=== PATIENT | female | born 1970 | race Caucasian/White ===

== ENCOUNTER 2016-06-17 14:24 | Emergency (ER) | payer MEDICAID ==
[~2016-06-17] VITALS: Ht 165.1 cm; Wt 81.6 kg
[~2016-06-17 14:24] MED LIST: CIMETIDINE200 MG PO; CYCLOBENZAPRINE10 MG PO; DRAMAMINE50 MG PO; DULOXETINE60 MG PO; ENBREL25 MG/0.5 SQ; ESCITALOPRAM20 MG NG; ESTRACE 2MG. TAB2 MG PO; FOLIC ACID 1MG T1 MG PO; HYDROCHLOROTHIA25 M1 PO; ISOPTIN PO; KEFLEX750 M1 PO; MAXZIDE 25 MG-31 TAB PO; MECLIZINE25 MG PO; NAPROXEN SODIU500 MG PO; PHENAZOPYRIDIN200 MG PO; SULFAMETH/TRIME1 TAB PO; WARFARIN SOD5 M1 PO
[2016-06-17] MEDS ORDERED: MEDROL 4MG. DOSE4 MG PO (15:39)
[2016-06-17] MEDS ORDERED: LEVAQUIN 750 M750 MG PO (15:39)
[2016-06-17] MEDS ORDERED: PROVENTIL0.09 MG/A1 IH (15:39)
[2016-06-17 15:43] VITALS: BP 131/82
--- NOTE | 2016-06-17 15:43 | Urgent Treatment Center Report ---
History of Present Issue Date/Time Seen by Provider 06/17/16 6075 Visit Reason Pt arrived:Walked Presenting Problem:PT C/O COUGH AND FEVER. PT ADVISES THAT WHEN SHE FIRST BECOME SICK, SHE HAD A SORE THROAT, BUT NOW IT IS NO LONGER SORE Location if Accident: Onset of symptoms date/time:/ or onset unknown for:MEDICAL HX UNKNOWN Have you (or family members/close friends) recently traveled outside the [place]? N If Yes, where/when: Have you had exposure to infectious disease within the past month? TB? Other? Specify: c/o continued cough and fever x 3-4 weeks "and I need a shot of whatever you can give me. I have surgery Friday for my appendix and this needs to be resolved". Cough persistant and fever intermittent. Occasional SOA, no wheezing. No improvement with zpack. Fever mostly at night, subjective. OTC cough medications not helping. 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 Source patient Exam Limitations no limitations ALLERGIES Coded Allergies: latex (Intermediate, I-RASH 02/05/16) fentanyl (03/18/15) lisinopril (03/18/15) ofloxacin (From FLOXIN) (03/18/15) Home Medications Reported Medications Verapamil Hcl (Isoptin SR) 120 MG PO BID Escitalopram Oxalate 20 MG NG DAILY #30 HYDROCHLOROTHIAZIDE (Hydrochlorothiazide) 25 MG PO DAILY #30 Warfarin Sodium 5 MG PO DAILY #30 TAB Cimetidine 200 MG PO DAILY Cyclobenzaprine Hcl (Cyclobenzaprine 10MG) 10 MG PO DAILY Etanercept (Enbrel) 25 MG SQ WEEKLY History Medical History General CAD? No Angina: No CT: No Hypertension? Yes Hyperlipidemia? No CHF? No DVT? Yes PE? No COPD? No Asthma? No Anemia? No GERD? No Gastric ulcers? No GI Bleed? No Hernia? No Thyroid Problems? No Hypothyroidism? No CVA? No Seizures? No Diabetes? No Insulin Dependent: No Insulin Pump: No Home FSBS? No Renal Insuffiency? No UTI? No Stones? Yes BPH? No GB Disease: Yes Nephritic Syndrome? No Asplenia? No Hepatitis? No Sickle Cell Disease? No Arthritis? No Migraines? Yes Cataracts? No Glaucoma? No MRSA? No HIV? No TB? No Anxiety? Yes Depression? Yes Cancer? No More? 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 denies: ear pain, ear discharge, nose discharge, nose congestion. Respiratory see HPI Cardiovascular denies chest pain, denies palpitations Gastrointestinal denies no symptoms reported Physical Exam Vital Signs Vital Signs Date Time Temp Pulse Resp B/P Pulse O2 O2 Flow FiO2 Ox Delivery Rate 06/17 1543 97.6 75 16 131/82 95 06/17 1430 97.6 75 16 131/82 95 General Appearance normal appearance, no apparent distress Eye Exam - bilateral eye normal exam Ear, Nose, Throat normal ENT inspection Neck non-tender, supple Respiratory Status Yes: chest symmetrical, non productive cough (worse w/ talking, deep breaths). No: respiratory distress, use of accessory muscles, pain on inspiration, pain on expiration. Lung Sounds anterior: lungs clear. posterior: lungs clear. bilateral: lungs clear. Cardiovascular regular rate/rhythm, no murmur Neurologic alert Skin normal color, warm/dry Lymphatic no adenopathy (cervical) Medical Decision Making LABS/Meds/Orders Pt receiving controlled substance in ED? No Departure Departure Time of Disposition 1532 Disposition DC Home or Self Care(routine) Clinical Impression Primary Impression: Acute bronchitis Qualifiers: Bronchitis organism: unspecified organism Qualified Code: J20.9 - Acute bronchitis, unspecified Condition STABLE Referrals MAICOL RAUSCH (Family) Follow up immediately for new or worsening symptoms OR no noticeable improvement over the next 48-72 hours for your best chance of improvement prior to surgery. Patient Instructions Albuterol Oral Inhalation, DI for Acute Bronchitis, Levofloxacin, Methylprednisolone Oral Additional Instructions Discussed antibiotics. No obvious sign of infection. I understand you would prefer to have an antibiotic because you know your body and I will give you one only for that reason. remember that as we discussed, antibiotics do come with side effects (especially this particular one) and risk including allergic reactions and resistance. Resistance to antibiotics can cause serious complications in the future if there is no antibiotic to treat an infection you have. Carefully consider this before starting antibiotics. Also, this particular antibiotic can effect your coumadin level. I understand you already took zpack and do not want to take that again. BE SURE to call your PCP and notify them that you have start levaquin so that your coumadin can be monitored and/or adjusted appropriately Inhaler as needed like we discussed. If still unsure, ask pharmacist to show you how to use it. Should open airways and improve cough, wheezing, shortness of breath. Mucinex during the day for your cough. Be sure to drink lots of water. If insurance does cover it, cheaper to get 400mg tablets and take 2 tablets morning , midday and evening all with lots of water. Start steroid today. Helps with inflammation therefore, cough and wheezing and possibly sore throat. Follow directions on package. Rvwd side effects. Pt reports he has taken them before. VERY IMPORTANT that you tell them on Friday that you have been on steroids. You might even call them today. This could change rather or not you can have surgery/anesthesia. Discharge Counseling Counseled pt/family regarding diagnosis, medications/RX, home care, follow up needs Prescriptions Current Visit Scripts ALBUTEROL (Proventil Hfa Inhaler) 1-2 PUFF IH Q4-6H PRN PRN shortness of breath, wheezing #1 CAN Levofloxacin (Levaquin 750mg) 750 MG PO DAILY #5 TAB Methylprednisolone (Medrol Dose Sohail) 4 MG PO UD #1 SOHAIL TAKE DIRECTED ON PACKAGING at 0579
[2016-06-26] MEDS ORDERED: LIPITOR40 M1 PO (20:15)
[2016-06-26] MEDS ORDERED: LEXAPRO 20 MG T20 MG PO (20:19)
[2016-06-26] MEDS ORDERED: DYAZIDE1 CAP PO (20:19)
[2016-06-26] MEDS ORDERED: ELIQUIS5 MG PO (20:20)
[2016-06-26] MEDS ORDERED: HYDROCHLOROTHIA25 M1 PO (20:20)
[2016-06-26] MEDS ORDERED: POTASSIUM CHLO20 ME2 PO (20:22)
[2016-06-26] MEDS ORDERED: NORCO 325 MG-51 TAB PO (20:22)
== END 2016-06-17 15:44 | disposition home or self-care (01) ==
LOC: UTC 14:24
DX: J20.9 Acute bronchitis, unspecified (principal)

== ENCOUNTER 2016-11-22 17:15 | Emergency (ER) | payer MEDICAID ==
[~2016-11-22] VITALS: Ht 165.1 cm; Wt 84.9 kg
[~2016-11-22 17:15] MED LIST changes: +DYAZIDE1 CAP PO; +ELIQUIS5 MG PO; +LEVAQUIN 750 M750 MG PO; +LEXAPRO 20 MG T20 MG PO; +LIPITOR40 M1 PO; +MEDROL 4MG. DOSE4 MG PO; +NORCO 325 MG-51 TAB PO; +POTASSIUM CHLO20 ME2 PO; +PROVENTIL0.09 MG/A1 IH
[2016-11-22 17:40] LABS: URINE BILIRUBIN - DIPSTICK NEGATIVE (NEG); URINE BLOOD NEGATIVE (NEG)
[2016-11-22] MEDS ORDERED: FLEXERIL10 MG PO (17:47)
--- NOTE | 2016-11-22 17:48 | Urgent Treatment Center Report ---
History of Present Issue Date/Time Seen by Provider 11/22/16 7767 Visit Reason Pt arrived:Walked Presenting Problem:PT C/O OF BURNING WHEN URINATING AND POS UTI Location if Accident: Onset of symptoms date/time:11/21/16 or onset unknown for: Have you (or family members/close friends) recently traveled outside the [place]? N If Yes, where/when: Have you had exposure to infectious disease within the past month? TB? Other? Specify: Patient states that she thinks she may have a UTI because she has been having some burning with urination. States that she has also been having low back pain and that she has been taking care of grandchildren all weekend so not sure if she has a UTI or just pulled a muscle in her back lifting the children States that it has continued to get worse so she thought she may need to come get checked before it got really bad ALLERGIES Coded Allergies: latex (Intermediate, I-RASH 02/05/16) morphine (Intermediate, 06/26/16) ciprofloxacin (From CIPRO) (Mild, 06/26/16) fentanyl (03/18/15) lisinopril (03/18/15) ofloxacin (From FLOXIN) (03/18/15) Home Medications Reported Medications Verapamil Hcl (Isoptin SR) 120 MG PO BID Atorvastatin Calcium (Lipitor 40MG) 40 MG PO DAILY TRIAMTERENE/HYDROCHLOROTHIAZID (Dyazide 37.5-25 Capsule) 1 CAP PO DAILY Escitalopram Oxalate (Lexapro 20MG) 20 MG PO DAILY HYDROCHLOROTHIAZIDE (Hydrochlorothiazide) 25 MG PO DAILY Apixaban (Eliquis) 5 MG PO BID HYDROCODONE/ACETAMINOPHEN ([place] 5-325 Tablet) 1 TAB PO Q4HP PRN SURGERY PAIN POTASSIUM CHL (Potassium Chloride) 20 MEQ PO BID History Medical History General CAD? No Angina: No [place]: No Hypertension? Yes Hyperlipidemia? No CHF? No DVT? Yes PE? No COPD? No Asthma? No Anemia? No GERD? No Gastric ulcers? No GI Bleed? No Hernia? No Thyroid Problems? No Hypothyroidism? No CVA? No Seizures? No Diabetes? No Insulin Dependent: No Insulin Pump: No Home FSBS? No Renal Insuffiency? No UTI? No Stones? Yes BPH? No GB Disease: Yes Nephritic Syndrome? No Asplenia? No Hepatitis? No Sickle Cell Disease? No Arthritis? No Migraines? Yes Cataracts? No Glaucoma? No MRSA? No HIV? No TB? No Anxiety? Yes Depression? Yes Cancer? No More? 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 Musculoskeletal back pain Physical Exam Vital Signs Vital Signs Date Time Temp Pulse Resp B/P Pulse O2 O2 Flow FiO2 Ox Delivery Rate 11/22 1729 97.9 71 18 160/89 100 General Appearance normal appearance, WD/WN, no apparent distress Respiratory Status Yes: trachea midline, chest symmetrical, non tender chest. No: respiratory distress. Lung Sounds bilateral: normal breath sounds, lungs clear. 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 No Results/Orders Laboratory Tests 11/22/161739: Urine Color YELLOW, Urine Appearance CLEAR, Urine pH 7.0, Ur Specific [place] 1.015, Urine Protein NEGATIVE, Urine Ketones NEGATIVE, Urine Blood NEGATIVE, Urine Nitrate NEGATIVE, Urine Bilirubin NEGATIVE, Urine Urobilinogen 0.2, Ur Leukocyte Esterase NEGATIVE, Urine Glucose NEGATIVE Orders Procedure Date/time Status [facility] URINE DIPSTICK 11/23 1739 Complete Departure Departure Time of Disposition 1743 Disposition DC Home or Self Care(routine) Clinical Impression Primary Impression: Muscle spasm Condition STABLE Patient Instructions DI for Muscle Spasm Additional Instructions Warm bath with epson salt will help with tired and achy muscles No heavy lifting Follow up with family doctor if symptoms does not improve Take medication as prescribed Take previously prescribed medication for pain Discharge Counseling Counseled pt/family regarding diagnosis, test results, medications/RX, home care Prescriptions Current Visit Scripts Cyclobenzaprine Hcl (Flexeril) 10 MG PO TID #15 TAB at 1748
--- NOTE | 2016-11-22 17:48 | Urgent Treatment Center Report ---
History of Present Issue Date/Time Seen by Provider 11/22/16 3857 Visit Reason Pt arrived:Walked Presenting Problem:PT C/O OF BURNING WHEN URINATING AND POS UTI Location if Accident: Onset of symptoms date/time:11/21/16 or onset unknown for: Have you (or family members/close friends) recently traveled outside the [place]? N If Yes, where/when: Have you had exposure to infectious disease within the past month? TB? Other? Specify: Patient states that she thinks she may have a UTI because she has been having some burning with urination. States that she has also been having low back pain and that she has been taking care of grandchildren all weekend so not sure if she has a UTI or just pulled a muscle in her back lifting the children States that it has continued to get worse so she thought she may need to come get checked before it got really bad ALLERGIES Coded Allergies: latex (Intermediate, I-RASH 02/05/16) morphine (Intermediate, 06/26/16) ciprofloxacin (From CIPRO) (Mild, 06/26/16) fentanyl (03/18/15) lisinopril (03/18/15) ofloxacin (From FLOXIN) (03/18/15) Home Medications Reported Medications Verapamil Hcl (Isoptin SR) 120 MG PO BID Atorvastatin Calcium (Lipitor 40MG) 40 MG PO DAILY TRIAMTERENE/HYDROCHLOROTHIAZID (Dyazide 37.5-25 Capsule) 1 CAP PO DAILY Escitalopram Oxalate (Lexapro 20MG) 20 MG PO DAILY HYDROCHLOROTHIAZIDE (Hydrochlorothiazide) 25 MG PO DAILY Apixaban (Eliquis) 5 MG PO BID HYDROCODONE/ACETAMINOPHEN ([place] 5-325 Tablet) 1 TAB PO Q4HP PRN SURGERY PAIN POTASSIUM CHL (Potassium Chloride) 20 MEQ PO BID History Medical History General CAD? No Angina: No [place]: No Hypertension? Yes Hyperlipidemia? No CHF? No DVT? Yes PE? No COPD? No Asthma? No Anemia? No GERD? No Gastric ulcers? No GI Bleed? No Hernia? No Thyroid Problems? No Hypothyroidism? No CVA? No Seizures? No Diabetes? No Insulin Dependent: No Insulin Pump: No Home FSBS? No Renal Insuffiency? No UTI? No Stones? Yes BPH? No GB Disease: Yes Nephritic Syndrome? No Asplenia? No Hepatitis? No Sickle Cell Disease? No Arthritis? No Migraines? Yes Cataracts? No Glaucoma? No MRSA? No HIV? No TB? No Anxiety? Yes Depression? Yes Cancer? No More? 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 Musculoskeletal back pain Physical Exam Vital Signs Vital Signs Date Time Temp Pulse Resp B/P Pulse O2 O2 Flow FiO2 Ox Delivery Rate 11/22 1729 97.9 71 18 160/89 100 General Appearance normal appearance, WD/WN, no apparent distress Respiratory Status Yes: trachea midline, chest symmetrical, non tender chest. No: respiratory distress. Lung Sounds bilateral: normal breath sounds, lungs clear. 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 No Results/Orders Laboratory Tests 11/22/161739: Urine Color YELLOW, Urine Appearance CLEAR, Urine pH 7.0, Ur Specific [place] 1.015, Urine Protein NEGATIVE, Urine Ketones NEGATIVE, Urine Blood NEGATIVE, Urine Nitrate NEGATIVE, Urine Bilirubin NEGATIVE, Urine Urobilinogen 0.2, Ur Leukocyte Esterase NEGATIVE, Urine Glucose NEGATIVE Orders Procedure Date/time Status [facility] URINE DIPSTICK 11/23 1739 Complete Departure Departure Time of Disposition 1743 Disposition DC Home or Self Care(routine) Clinical Impression Primary Impression: Muscle spasm Condition STABLE Patient Instructions DI for Muscle Spasm Additional Instructions Warm bath with epson salt will help with tired and achy muscles No heavy lifting Follow up with family doctor if symptoms does not improve Take medication as prescribed Take previously prescribed medication for pain Discharge Counseling Counseled pt/family regarding diagnosis, test results, medications/RX, home care Prescriptions Current Visit Scripts Cyclobenzaprine Hcl (Flexeril) 10 MG PO TID #15 TAB at 1744
[2016-11-22 17:52] VITALS: BP 160/89
== END 2016-11-22 17:52 | disposition home or self-care (01) ==
LOC: UTC 17:15
PROVIDERS: Nurse Practitioner
DX: M62.830 Muscle spasm of back (principal); I10 Essential (primary) hypertension; F41.8 Other specified anxiety disorders; Z72.0 Tobacco use; Z79.899 Other long term (current) drug therapy

== ENCOUNTER → 2016-12-04 | Outpatient (CLI) | payer MEDICAID ==
[~2016-12-04] MED LIST changes: +FLEXERIL10 MG PO
== END ==
LOC: LAB 15:01
DX: E87.6 Hypokalemia (principal)

== ENCOUNTER 2016-12-24 11:06 | Emergency (ER) | payer MEDICAID ==
[~2016-12-24] VITALS: Ht 165.1 cm; Wt 84.8 kg
[2016-12-24] MEDS ORDERED: QUETIAPINE FUM200 MG PO (11:15)
[2016-12-24] MEDS ORDERED: BRINTELLIX20 MG PO (11:16)
--- NOTE | 2016-12-24 12:00 | Emergency Room Report ---
History of Present Illness Time Seen by 1111 Presenting Problem in Triage Pt arrived:Walked Presenting Problem:PT REPORTS PAIN IN R ANTERIOR LUNG AREA THAT BEGAN YESTERDAY. PT REPORTS HAVING A COUGH X4 WEEKS THAT IS DEEP AND PRODUCTIVE. PT REPROTS PAIN IS SHARP IN NATURE AND PAINFUL WITH INSPIRATION. 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 N Clinical Suspician of Infection? N Mental Status: 1 - Regular (Normal Baseline) Sepsis Risk:Low Sepsis Risk Have you (or family members/close friends) recently traveled outside the [place]? N If Yes, where/when: Have you had exposure to infectious disease within the past month? N TB? Other? Specify: Comment The patient complains of "air" in the area of her RIGHT costal margin. She describes this as a pain that has been present there since yesterday afternoon. It hurts with breathing and cough. She feels short of air. It reminds her of when she has had previous abdominal surgery where they fill your abdomen with air. She also has a prior history of pulmonary embolism and DVT and says this feels like prior PE. She is on Eliquis. She does not have any new leg swelling and does not have any calf pain. She has had a deep cough for 4 weeks. Her sputum is brown. ALLERGIES Coded Allergies: latex (Intermediate, I-RASH 02/05/16) morphine (Intermediate, 06/26/16) ciprofloxacin (From CIPRO) (Mild, 06/26/16) fentanyl (03/18/15) lisinopril (03/18/15) ofloxacin (From FLOXIN) (03/18/15) Home Medications Reported Medications Verapamil Hcl (Isoptin SR) 120 MG PO BID Atorvastatin Calcium (Lipitor 40MG) 40 MG PO DAILY TRIAMTERENE/HYDROCHLOROTHIAZID (Dyazide 37.5-25 Capsule) 1 CAP PO DAILY HYDROCHLOROTHIAZIDE (Hydrochlorothiazide) 25 MG PO DAILY Apixaban (Eliquis) 5 MG PO BID POTASSIUM CHL (Potassium Chloride) 20 MEQ PO BID Quetiapine Fumarate (Quetiapine 200MG) 200 MG PO QHS #30 Vortioxetine Hydrobromide (Brintellix) 20 MG PO DAILY #30 History Medical History General CAD? No Angina: No [place]: No Hypertension? Yes Hyperlipidemia? No CHF? No DVT? Yes PE? No COPD? No Asthma? No Anemia? No GERD? No Gastric ulcers? No GI Bleed? No Hernia? No Thyroid Problems? No Hypothyroidism? No CVA? No Seizures? No Diabetes? No Insulin Dependent: No Insulin Pump: No Home FSBS? No Renal Insuffiency? No End Stage Renal Disease? No UTI? No Stones? Yes BPH? No GB Disease: Yes Nephritic Syndrome? No Asplenia? No Hepatitis? No Sickle Cell Disease? No Arthritis? No Migraines? Yes Cataracts? No Glaucoma? No MRSA? No HIV? No TB? No Anxiety? Yes Depression? Yes Cancer? No More? 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 N/A Social History Smoking Hx Smoker: Never Smoker Tobacco: No Alcohol Alcohol: No Review of Systems All Other Systems Reviewed and Negative Constitutional denies fever Respiratory cough, shortness of breath Cardiovascular chest pain Gastrointestinal denies abdominal pain, denies nausea, denies vomiting Physical Exam Vital Signs Vital Signs Date Time Temp Pulse Resp B/P Pulse O2 O2 Flow FiO2 Ox Delivery Rate 12/24 1546 65 132/79 98 12/24 1446 67 16 140/92 100 12/24 1247 16 12/24 1235 69 18 149/73 99 12/24 1110 98.1 81 22 141/88 99 General Appearance no apparent distress Eye Exam - bilateral eye normal exam, bilateral eye PERRL, bilateral eye EOMI Ear, Nose, Throat hearing grossly normal, normal ENT inspection Neck normal inspection, non-tender, supple, full range of motion Respiratory Status Yes: trachea midline, chest symmetrical, non tender chest. No: respiratory distress. Lung Sounds bilateral: normal breath sounds, lungs clear. 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 Yes Davi was queried for this patient? Yes Comment [id number] rxs. last rx gabapentin 12/11/16. Results/Orders Laboratory Tests 12/24/16 1226: Creatine Kinase 69, CK-MB (CK-2) Rel Index 0.7, CK and CKMB Interp < 0.5, Troponin I < 0.02, Amylase 75, Lipase 277 12/24/16 1226: Sodium 141, Potassium 3.2 L, Chloride 104, Carbon Dioxide 26, BUN 20 H, Creatinine 1.1 H, Estimated Creat Clear 84, Estimated GFR (MDRD) 53 L, Glucose 90, Calcium 9.8, Total Bilirubin 1.1 H, AST 31, ALT 54, Alkaline Phosphatase 170 H, Total Protein 8.6 H, Albumin 4.3, Globulin 4.3 H, Albumin/Globulin Ratio 1.0 L, WBC 7.3, RBC 4.52, Hgb 13.4, Hct 40.0, MCV 88.6, RDW 14.1, Plt Count 183, Gran % 62.5, Gran # 4.6, Lymphocytes % 30.2, Monocytes % 7.3, Lymphocytes # 2.2, Monocytes # 0.5, PUBS MCHC 33.5, MCH 29.6 Current Medication Orders Sig/Caio Start time Last Medication Dose Route Stop Time Status Admin Hydrocodone Bitart/ 1 TAB ONCE 12/24 1545 DCr Acetaminophen PO 12/24 1546 Hydrocodone Bitart/ 0 .STK-MED ONE 12/24 1542 DCr Acetaminophen PO Hydromorphone HCl 0.5 MG ONCE ONE 12/24 1515 CANr IV 12/24 1516 Hydromorphone HCl 0 .STK-MED ONE 12/24 124 DCr .ROUTE Ondansetron HCl 0 .STK-MED ONE 12/24 1245 DC .ROUTE Hydromorphone HCl 0.5 MG ONCE ONE 12/24 1215 DCr 12/24 IV 12/246 1247 Ondansetron HCl 4 MG ONCE ONE 12/24 1215 DC 12/24 IV 12/246 1246 Sodium Chloride 10 ML PRN PRN 12/24 1215 DCD IV 12/25 1211 Orders Procedure Date/time Status DIET-NOTHING BY MOUTH 12/24 D Active ELECTROCARDIOGRAM REQUEST 12/24 1337 Active LIPASE 12/24 1337 Complete CARDIAC ENZYMES 12/24 1337 Complete AMYLASE 12/[address] CHEST W/PE PROTOCOL REQ 12/24 1213 Active IV SALINE LOCK 12/24 1213 Active CBC WITH AUTO DIFF 12/24 1213 Complete CHEM 12 PROFILE 12/24 1213 Complete 12 LEAD EKG-MARA (INITIAL) 12/24 UNK Active CM/EKG CM/EKG Comments EKG interpreted by Thiago Sherman MD: Rhythm: sinus bradycardia Rate: 56 [place]: normal Ectopy: none Conduction: normal ST Segment Changes: none T Wave Changes: none Q Waves: none No evidence of acute ischemia or injury Poor R-wave progression Prior electrocardiagrams reviewed. No change from prior tracings. Progress - 3:08 PM: The patient requests "another shot of that pain medication and he gave me before". States she started coughing and the pain has come back with a vengeance. Departure Departure Disposition DC Home or Self Care(routine) Clinical Impression Primary Impression: Pleurisy Secondary Impressions: Acute bronchitis Qualifiers: Bronchitis organism: unspecified organism Qualified Code: J20.9 - Acute bronchitis, unspecified Condition STABLE Referrals MAICOL RAUSCH (Family) Patient Instructions DI for Acute Bronchitis, DI for Pleurisy Prescriptions Current Visit Scripts Azithromycin (Zithromycin (Z-CÉSAR) 250MG Tab) 250 MG PO DAILY #6 TAB TAKE TWO (2) TABLETS ON DAY 1, THEN ONE (1) TABLET DAY #2 THRU #5 Benzonatate (Tessalon Perle) 100 MG PO TID #15 SGL HYDROCODONE/ACETAMINOPHEN ([place] 5-325 Tablet) 1 TAB PO Q6HP PRN pain #10 TAB ED Critical Care Critical Care No at 1651
--- NOTE | 2016-12-24 12:00 | Emergency Room Report ---
History of Present Illness Time Seen by [id number] Presenting Problem in Triage Pt arrived:Walked Presenting Problem:PT REPORTS PAIN IN R ANTERIOR LUNG AREA THAT BEGAN YESTERDAY. PT REPORTS HAVING A COUGH X4 WEEKS THAT IS DEEP AND PRODUCTIVE. PT REPROTS PAIN IS SHARP IN NATURE AND PAINFUL WITH INSPIRATION. 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 N Clinical Suspician of Infection? N Mental Status: 1 - Regular (Normal Baseline) Sepsis Risk:Low Sepsis Risk Have you (or family members/close friends) recently traveled outside the [place]? N If Yes, where/when: Have you had exposure to infectious disease within the past month? N TB? Other? Specify: Comment The patient complains of "air" in the area of her RIGHT costal margin. She describes this as a pain that has been present there since yesterday afternoon. It hurts with breathing and cough. She feels short of air. It reminds her of when she has had previous abdominal surgery where they fill your abdomen with air. She also has a prior history of pulmonary embolism and DVT and says this feels like prior PE. She is on Eliquis. She does not have any new leg swelling and does not have any calf pain. She has had a deep cough for 4 weeks. Her sputum is brown. ALLERGIES Coded Allergies: latex (Intermediate, I-RASH 02/05/16) morphine (Intermediate, 06/26/16) ciprofloxacin (From CIPRO) (Mild, 06/26/16) fentanyl (03/18/15) lisinopril (03/18/15) ofloxacin (From FLOXIN) (03/18/15) Home Medications Reported Medications Verapamil Hcl (Isoptin SR) 120 MG PO BID Atorvastatin Calcium (Lipitor 40MG) 40 MG PO DAILY TRIAMTERENE/HYDROCHLOROTHIAZID (Dyazide 37.5-25 Capsule) 1 CAP PO DAILY HYDROCHLOROTHIAZIDE (Hydrochlorothiazide) 25 MG PO DAILY Apixaban (Eliquis) 5 MG PO BID POTASSIUM CHL (Potassium Chloride) 20 MEQ PO BID Quetiapine Fumarate (Quetiapine 200MG) 200 MG PO QHS #30 Vortioxetine Hydrobromide (Brintellix) 20 MG PO DAILY #30 History Medical History General CAD? No Angina: No [place]: No Hypertension? Yes Hyperlipidemia? No CHF? No DVT? Yes PE? No COPD? No Asthma? No Anemia? No GERD? No Gastric ulcers? No GI Bleed? No Hernia? No Thyroid Problems? No Hypothyroidism? No CVA? No Seizures? No Diabetes? No Insulin Dependent: No Insulin Pump: No Home FSBS? No Renal Insuffiency? No End Stage Renal Disease? No UTI? No Stones? Yes BPH? No GB Disease: Yes Nephritic Syndrome? No Asplenia? No Hepatitis? No Sickle Cell Disease? No Arthritis? No Migraines? Yes Cataracts? No Glaucoma? No MRSA? No HIV? No TB? No Anxiety? Yes Depression? Yes Cancer? No More? 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1 81 22 141/88 99 General Appearance no apparent distress Eye Exam - bilateral eye normal exam, bilateral eye PERRL, bilateral eye EOMI Ear, Nose, Throat hearing grossly normal, normal ENT inspection Neck normal inspection, non-tender, supple, full range of motion Respiratory Status Yes: trachea midline, chest symmetrical, non tender chest. No: respiratory distress. Lung Sounds bilateral: normal breath sounds, lungs clear. 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 Yes Davi was queried for this patient? Yes Comment [id number] rxs. last rx gabapentin 12/11/16. Results/Orders Laboratory Tests 12/24/16 1226: Creatine Kinase 69, CK-MB (CK-2) Rel Index 0.7, CK and CKMB Interp < 0.5, Troponin I < 0.02, Amylase 75, Lipase 277 12/24/16 1226: Sodium 141, Potassium 3.2 L, Chloride 104, Carbon Dioxide 26, BUN 20 H, Creatinine 1.1 H, Estimated Creat Clear 84, Estimated GFR (MDRD) 53 L, Glucose 90, Calcium 9.8, Total Bilirubin 1.1 H, AST 31, ALT 54, Alkaline Phosphatase 170 H, Total Protein 8.6 H, Albumin 4.3, Globulin 4.3 H, Albumin/Globulin Ratio 1.0 L, WBC 7.3, RBC 4.52, Hgb 13.4, Hct 40.0, MCV 88.6, RDW 14.1, Plt Count 183, Gran % 62.5, Gran # 4.6, Lymphocytes % 30.2, Monocytes % 7.3, Lymphocytes # 2.2, Monocytes # 0.5, PUBS MCHC 33.5, MCH 29.6 Current Medication Orders Sig/Caio Start time Last Medication Dose Route Stop Time Status Admin Hydrocodone Bitart/ 1 TAB ONCE 12/24 1545 DCr Acetaminophen PO 12/24 1546 Hydrocodone Bitart/ 0 .STK-MED ONE 12/24 1542 DCr Acetaminophen PO Hydromorphone HCl 0.5 MG ONCE ONE 12/24 1515 CANr IV 12/24 1516 Hydromorphone HCl 0 .STK-MED ONE 12/24 124 DCr .ROUTE Ondansetron HCl 0 .STK-MED ONE 12/24 1245 DC .ROUTE Hydromorphone HCl 0.5 MG ONCE ONE 12/24 1215 DCr 12/24 IV 12/246 1247 Ondansetron HCl 4 MG ONCE ONE 12/24 1215 DC 12/24 IV 12/246 1246 Sodium Chloride 10 ML PRN PRN 12/24 1215 DCD IV 12/25 1211 Orders Procedure Date/time Status DIET-NOTHING BY MOUTH 12/24 D Active ELECTROCARDIOGRAM REQUEST 12/24 1337 Active LIPASE 12/24 1337 Complete CARDIAC ENZYMES 12/24 1337 Complete AMYLASE 12/[address] CHEST W/PE PROTOCOL REQ 12/24 1213 Active IV SALINE LOCK 12/24 1213 Active CBC WITH AUTO DIFF 12/24 1213 Complete CHEM 12 PROFILE 12/24 1213 Complete 12 LEAD EKG-MARA (INITIAL) 12/24 UNK Active CM/EKG CM/EKG Comments EKG interpreted by Thiago Sherman MD: Rhythm: sinus bradycardia Rate: 56 [place]: normal Ectopy: none Conduction: normal ST Segment Changes: none T Wave Changes: none Q Waves: none No evidence of acute ischemia or injury Poor R-wave progression Prior electrocardiagrams reviewed. No change from prior tracings. Progress - 3:08 PM: The patient requests "another shot of that pain medication and he gave me before". States she started coughing and the pain has come back with a vengeance. Departure Departure Disposition DC Home or Self Care(routine) Clinical Impression Primary Impression: Pleurisy Secondary Impressions: Acute bronchitis Qualifiers: Bronchitis organism: unspecified organism Qualified Code: J20.9 - Acute bronchitis, unspecified Condition STABLE Referrals MAICOL RAUSCH (Family) Patient Instructions DI for Acute Bronchitis, DI for Pleurisy Prescriptions Current Visit Scripts Azithromycin (Zithromycin (Z-CÉSAR) 250MG Tab) 250 MG PO DAILY #6 TAB TAKE TWO (2) TABLETS ON DAY 1, THEN ONE (1) TABLET DAY #2 THRU #5 Benzonatate (Tessalon Perle) 100 MG PO TID #15 SGL HYDROCODONE/ACETAMINOPHEN ([place] 5-325 Tablet) 1 TAB PO Q6HP PRN pain #10 TAB ED Critical Care Critical Care No at 1651
--- NOTE | 2016-12-24 12:32 | RADIOLOGY REPORT PS360 ---
CHEST(2 VIEWS-NOT PORTABLE) HISTORY: PAIN WITH INSPIRATION ORDERING PHYSICIAN: Thiago Sherman MD PATIENT AGE: 46 years COMPARISON: 09/18/1715 FINDINGS: The cardiomediastinal silhouette and pulmonary vascularity are within normal limits. The lungs are clear without infiltrates, suspicious nodules, or pleural effusions. No acute bony abnormalities. There is evidence of old granulomatous disease IMPRESSION: No change with no acute finding
[2016-12-24 12:34] LABS: HEMOGLOBIN 13.4 g/dL (12.2-16.2)
[2016-12-24 12:35] LABS: LYMPH # 2.2 K/mm3 (0.7-4.5); LYMPH % 30.2 % (10-50.0)
--- NOTE | 2016-12-24 12:56 | RADIOLOGY REPORT PS360 ---
CTA-CHEST HISTORY: RT SIDED PLEURITIC PAIN, shortness of air, R/O PE, HX PE ORDERING PHYSICIAN: Thiago Sherman MD PATIENT AGE: 46 years TECHNIQUE: Helical acquisition obtained following the bolus administration of 60 mL of Isovue 370 followed by a saline bolus. Axial, sagittal, and coronal reformatted images are generated and reviewed. COMPARISON: 03/18/2015 FINDINGS: PULMONARY ARTERIES:No pulmonary embolus evident. AORTA:No acute finding. No thoracic aortic aneurysm or dissection evident LUNGS:Unremarkable. No mass or consolidation. Calcified granuloma is present in the left upper lobe. PLEURAL SPACES:No significant effusion. No evidence of pneumothorax. HEART:Unremarkable. Normal heart size. No significant pericardial effusion. MEDIASTINAL AND HILAR STRUCTURES:No mediastinal or hilar mass evident. No dominant adenopathy. BONY STRUCTURES:No acute bony abnormalities apparent LYMPH NODES:No enlarged lymph nodes evident UPPER ABDOMEN:Unremarkable Soft tissues: Bilateral subpectoral breast implants are present IMPRESSION: Negative CTA chest. No evidence of acute pulmonary embolus.
[2016-12-24] MEDS ORDERED: ZITHROMAX Z PA250 MG PO (15:11)
[2016-12-24] MEDS ORDERED: TESSALON PERLE100 M1 PO (15:11)
[2016-12-24] MEDS ORDERED: NORCO 325 MG-51 TAB PO (15:11)
[2016-12-24 15:46] VITALS: BP 132/79
== END 2016-12-24 15:47 | disposition home or self-care (01) ==
LOC: ER 11:06
PROVIDERS: Emergency Medicine
DX: J20.9 Acute bronchitis, unspecified (principal); Z88.1 Allergy status to other antibiotic agents; Z88.6 Allergy status to analgesic agent; I10 Essential (primary) hypertension; F41.8 Other specified anxiety disorders; Z86.718 Personal history of other venous thrombosis and embolism; Z79.01 Long term (current) use of anticoagulants; Z91.040 Latex allergy status
CPT/HCPCS: J2405

== ENCOUNTER → 2017-01-15 | Outpatient (CLI) | payer MEDICAID ==
[~2017-01-15] MED LIST changes: +BRINTELLIX20 MG PO; +QUETIAPINE FUM200 MG PO; +TESSALON PERLE100 M1 PO; +ZITHROMAX Z PA250 MG PO
--- NOTE | 2017-01-15 23:00 | RADIOLOGY REPORT PS360 ---
CHEST(2 VIEWS-NOT PORTABLE) Ordering physician: MAICOL RAUSCH Age: 46 years Female INDICATION: chest symptomsSHORTNESS OF BREATH PROCEDURE: CHEST(2 VIEWS-NOT PORTABLE) 12/24/2016 CXR 2 view as comparison and CTA chest from same date FINDINGS: . Nothing definitely acute. . No infiltrate. No pleural effusionNo pneumothorax.. On today's study there is a small dense 10 mm calcified appearing focal density projected left anterior fifth rib end . This was not evident on last month's study but it appears to be a likely calcified granuloma however was not evident recent studies. Today's study is also compared to CT chest 12/24/2016. Only some minimal wispy scarring was seen on anteriorly in this region on this recent chest A more definitive calcified granulomas seen superiorly at the anterior chest L UL, most evident on the lateral view.. Heart normal size. Normal pulmonary vascularity. Hilar and mediastinal structures appear satisfactory. Calcified hilar nodes on left old granulomatous disease.. Bilateral breast implants noted. T-spine intact. IMPRESSION ----- . No acute cardiopulmonary findings. Incidental note: 10 x 8 mm likely partially calcified appearing nodular density projected over left anterior fifth rib end, has become evident since previous study December 24, 2016 recent chest film.. Curious feature could be overlying artifact or or interval developing granuloma. I do not believe is of significance is 46-year-old but noted. Calcified left hilar nodes observed and appear similar reflecting old granulomatous disease most evident left chest
== END ==
LOC: RAD 15:00
DX: R06.02 Shortness of breath (principal)

== ENCOUNTER 2017-02-10 14:01 | Observation (INO) | payer MEDICAID ==
[~2017-02-10] VITALS: Ht 165.1 cm; Wt 89.1 kg
[2017-02-10 14:03] VITALS: BP 156/92
--- OUTSIDE RECORDS SUMMARY | 2017-02-10 14:10 | External Medical Summary Rpt | CCD ---
Author Author [employer] Organization [employer] Address Unknown Phone Unavailable Purpose Continuity of Care Document - through 2016
--- OUTSIDE RECORDS SUMMARY | 2017-02-10 14:10 | External Medical Summary Rpt | CCD ---
Author Author , VINCENT KAUR Address Unknown Phone [email or web address] Purpose Continuity of Care Document - 02-06-2012 through 2016 Problems Code Diagnosis DOS Provider Status F32.9 MAJOR 07-15-2016 DEPRESSIVE DISORDER, SINGLE EPISODE, UNSPECIFIED I10 ESSENTIAL 07-15-2016 (PRIMARY) HYPERTENSIO N R10.32 LEFT LOWER 07-15-2016 QUADRANT PAIN Z79.01 FINISHER PLATE 07-15-2016 (CURRENT) USE OF ANTICOAGULA NTS Z79.899 OTHER LONG 07-15-2016 TERM (CURRENT) DRUG THERAPY Z86.711 PERSONAL 07-15-2016 HISTORY OF PULMONARY EMBOLISM Z86.718 PERSONAL 07-15-2016 HISTORY OF OTHER VENOUS THROMBOSIS AND EMBOLISM Z86.73 PERSONAL 07-15-2016 HISTORY OF TRANSIENT ISCHEMIC ATTACK (TIA), AND CEREBRAL INFARCTION WITHOUT RESIDUAL DEFICITS Z88.6 ALLERGY 07-15-2016 STATUS TO ANALGESIC AGENT STATUS Z88.8 ALLERGY 07-15-2016 STATUS TO OTHER DRUGS, MEDICAMENTS AND BIOLOGICAL SUBSTANCES STATUS Z91.040 LATEX 07-15-2016 ALLERGY STATUS Z98.890 OTHER 07-15-2016 SPECIFIED POSTPROCEDU RAL STATES Q43.0 MECKEL'S 06-27-2016 DIVERTICULU M (DISPLACED) (HYPERTROPH IC) E07.9 DISORDER OF 06-27-2016 THYROID, UNSPECIFIED K21.9 GASTRO-ESOP 06-27-2016 HAGEAL REFLUX DISEASE WITHOUT ESOPHAGITIS R10.30 LOWER 06-27-2016 ABDOMINAL PAIN, UNSPECIFIED Results Labs Lab Lab Date Result Refere Interp Status Commen Order Detail nces retati t Range on D dimer FEU PPP-mCnc (12-19-2016 14:30) D dimer LE28 <0.51 complet FEU 017 <0.28 L ed PPP-mCn 14:30 mg/L c FEU D dimer FEU PPP-mCnc (09-09-2016 13:55) D dimer 06-12-2 < 0.28 <0.51 complet FEU 017 mg/L ed PPP-mCn 13:55 FEU c Magnesium SerPl-mCnc (09-09-2016 13:55) Magnesi 1.9 1.9-2.4 complet um 017 mg/dL ed SerPl-m 13:55 Cnc ESR Bld Qn (08-12-2016 16:56) ESR Bld 28 0-20 complet Qn 017 mm/hr ed 16:56 CRP SerPl-mCnc (08-12-2016 16:56) CRP 0.3 0-0.9 complet SerPl-m 017 mg/dL ed Cnc 16:56 Prolactin SerPl 3rd IS-mCnc (06-13-2016 13:37) Prolact 12.9 4.4-23. complet in 017 ng/mL 3 ed SerPl 13:37 3rd IS-mCnc LH SerPl-aCnc (06-13-2016 13:37) LH 76.5 complet SerPl-a 017 mIU/mL ed Cnc 13:37 FSH SerPl IRP2-aCnc (06-13-2016 13:37) FSH 91.6 complet SerPl 017 mIU/mL ed IRP2-aC 13:37 nc TSH SerPl DL<=0.005 mIU/L-aCnc (06-13-2016 13:37) TSH 2.85 0.4-4.2 complet SerPl 017 uIU/mL ed DL<=0.0 13:37 05 mIU/L-a Cnc T4 Free SerPl-mCnc (06-13-2016 13:37) T4 Free 0.9 0.8-1.7 complet 017 ng/dL ed SerPl-m 13:37 Cnc TROPONIN I (03-08-2012 21:32) > 0.06 complet 012 ng/ml ed 21:32 (POSITI VE) 0 - complet 012 0.06 ed 21:32 ng/ml (NEGATI VE) RD BCK K.Hay/1 complet VRFY: 012 ed 21:32 153/xin INITIAL complet 012 ed 21:32 TROPONI N? _YES_ 2.2153. [facility]. . .M TROPONI 0.00 0.00 - complet N-I 012 ng/ml 0.06 ed 21:32 COMPREHENSIVE METABOLIC PANEL CMP (03-08-2012 21:30) *GFR complet 012 only ed 21:30 applies to adults over the age 18. If complet 012 patient ed 21:30 is Luiza n, multipl y GFR by 1.120. Normal complet 012 Range: ed 21:30 60 Ml/min/ 1.73 sq meters GLOMERU complet 012 LAR ed 21:30 FILTRAT ION RATE INTERPR ETATION A/G 0.9 1.0 - Below complet RATIO 012 ratio 3.90 low ed 21:30 normal GLOBULI 3.9 1.30 - Above complet N 012 g/dl 3.50 high ed 21:30 normal ALBUMIN 3.7 3.40 - complet 012 g/dl 5.0 ed 21:30 TOTAL 7.6 6.40 - complet PROTEIN 012 g/dl 8.20 ed 21:30 ALK 119 50 - complet PHOS 012 IU/L 136 ed 21:30 ALT 31 IU/L 30 - 65 complet (SGPT) 012 ed 21:30 AST 24 IU/L 15 - 37 complet (SGOT) 012 ed 21:30 TOTAL 0.3 0.20 - complet SHANIQUA 012 mg/dl 1.0 ed 21:30 CALCIUM 8.9 8.50 - complet 012 mg/dl 10.10 ed 21:30 GFR 60 complet 012 ml/min ed 21:30 AGE [age] yrs complet 012 ed 21:30 CREATIN 1.0 0.60 - complet INE 012 mg/dl 1.30 ed 21:30 BUN 19 7 - 18 Above complet 012 mg/dl high ed 21:30 normal GLUCOSE 87 70 - complet 012 mg/dl 120 ed 21:30 ANION 10 5 - 15 complet GAP 012 mmol/L ed 21:30 TOTAL 32 21 - 32 complet CO2 012 mmol/L ed 21:30 CHLORID 101 98 - complet E 012 mmol/L 107 ed 21:30 POTASSI 3.8 3.50 - complet UM 012 mmol/L 5.10 ed 21:30 SODIUM 139 136 - complet 012 mmol/L 145 ed 21:30 MYOGLOBIN PLASMA (03-08-2012 21:30) MYOGLOB 20 10 - 92 complet IN 012 ng/ml ed 21:30 CKMB wCPK (03-08-2012 21:30) RELATIV complet 012 E INDEX ed 21:30 NOT AVAILAB LE ON PATIENT S W/ARELIS L CKMB AMI > complet 012 5.0 > ed 21:30 4.0 HOLCOMB complet 012 ZONE > ed 21:30 5.0 </= 4.0 NON AMI complet 012 </= ed 21:30 5.0 NA MMB complet 012 (ng/ml) ed 21:30 Relativ e Index CKMB NOT 0 - complet INDEX 012 APPL % 4.10 ed 21:30 CKMB 0.6 0.01 - complet 012 ng/ml 3.60 ed 21:30 CK 61 U/L 21 - complet 012 215 ed 21:30 CBC W DIFF AUTOMATED (03-08-2012 21:30) Manual NOT complet Diff 012 INDICAT ed 21:30 ED BA# 0.08 0.00 - complet 012 K/uL 0.20 ed 21:30 EO# 0.11 0.00 - complet 012 K/uL 0.70 ed 21:30 NE# 3.74 2.00 - complet 012 K/uL 6.90 ed 21:30 MO# 0.49 0.00 - complet 012 K/uL 0.90 ed 21:30 LY# 2.06 0.60 - complet 012 K/uL 3.40 ed 21:30 BA% 1.20 % 0.00 - complet 012 2.50 ed 21:30 EO% 1.70 % 0.00 - complet 012 7.00 ed 21:30 NE% 57.7 % 37.0 - complet 012 80.0 ed 21:30 MO% 7.6 % 0.0 - complet 012 12.0 ed 21:30 LY% 31.8 % 10.0 - complet 012 50.0 ed 21:30 PLT 223 142 - complet 012 K/uL 424 ed 21:30 RDW 11.5 % 11.60 - Below complet 012 14.80 low ed 21:30 normal MCHC 36.0 31.80 - Above complet 012 g/dL 35.40 high ed 21:30 normal MCH 31.1 pg 27.0 - complet 012 31.20 ed 21:30 MCV 86.4 fL 80.0 - complet 012 97.0 ed 21:30 HCT 35 % 37.70 - Below complet 012 53.70 low ed 21:30 normal HGB 12.6 12.20 - complet 012 g/dL 18.10 ed 21:30 RBC 4.05 4.04 - complet 012 M/uL 6.13 ed 21:30 WBC 6.5 4.60 - complet 012 K/uL 10.20 ed 21:30 COMPREHENSIVE METABOLIC PANEL CMP (02-07-2012 08:52) *GFR complet 012 only ed 08:52 applies to adults over the age 18. ALT 62 IU/L 30 - 65 complet (SGPT) 012 ed 08:52 ALK 173 50 - Above complet PHOS 012 IU/L 136 high ed 08:52 normal TOTAL 6.9 6.40 - complet PROTEIN 012 g/dl 8.20 ed 08:52 ALBUMIN 3.3 3.40 - Below complet 012 g/dl 5.0 low ed 08:52 normal GLOBULI 3.6 1.30 - Above complet N 012 g/dl 3.50 high ed 08:52 normal A/G 0.9 1.0 - Below complet RATIO 012 ratio 3.90 low ed 08:52 normal GLOMERU complet 012 LAR ed 08:52 FILTRAT ION RATE INTERPR ETATION Normal complet 012 Range: ed 08:52 60 Ml/min/ 1.73 sq meters If complet 012 patient ed 08:52 is Luiza n, multipl y GFR by 1.120. SODIUM 140 136 - complet 012 mmol/L 145 ed 08:52 POTASSI 3.2 3.50 - Below complet UM 012 mmol/L 5.10 low ed 08:52 normal CHLORID 106 98 - complet E 012 mmol/L 107 ed 08:52 TOTAL 27 21 - 32 complet CO2 012 mmol/L ed 08:52 ANION 10 5 - 15 complet GAP 012 mmol/L ed 08:52 GLUCOSE 98 70 - complet 012 mg/dl 120 ed 08:52 BUN 8 mg/dl 7 - 18 complet 012 ed 08:52 CREATIN 0.8 0.60 - complet INE 012 mg/dl 1.30 ed 08:52 AGE [age] yrs complet 012 ed 08:52 CALCIUM 7.6 8.50 - Below complet 012 mg/dl 10.10 low ed 08:52 normal TOTAL 0.4 0.20 - complet SHANIQUA 012 mg/dl 1.0 ed 08:52 AST 45 IU/L 15 - 37 Above complet (SGOT) 012 high ed 08:52 normal GFR 60 complet 012 ml/min ed 08:52 URINALYSIS COMPLETE AUTOMATED (02-07-2012 05:05) Color LT. NL: complet 012 YELL Negativ ed 05:05 ative e Clarity CLEAR NL: complet 012 ative Negativ ed 05:05 e Glucose NEG NL: complet 012 ative Negativ ed 05:05 e Bilirub NEG NL: complet in 012 ative Negativ ed 05:05 e Ketones 1+ NL: Abnorma complet 012 ative Negativ l ed 05:05 e Specifi 1.015 NL: complet c Gr 012 1.030 1.00 >= ed 05:05 1.030 Blood NEG NL: complet 012 ative Negativ ed 05:05 e pH 6.5 NL: NL: complet 012 ed 05:05 Protein NEG NL: complet 012 ative Negativ ed 05:05 e Urobili 0.2 - NL: 0.2 complet nogen 012 1.0 - 1.0 ed 05:05 Nitrite NEG NL: complet 012 ative Negativ ed 05:05 e Leukocy NEG NL: complet kianna 012 ative Negativ ed 05:05 e MICROSC See active OPIC 012 Below_ 05:05 Wbc NEGATIV NL: active 012 E ATIVE NEGATIV 05:05 E Rbc NEGATIV NL: active 012 E ATIVE NEGATIV 05:05 E Epi NEGATIV NL: active Cells 012 E ATIVE NEGATIV 05:05 E Bacteri NEGATIV NL: active a 012 E ATIVE NEGATIV 05:05 E Mucous NEGATIV NL: active 012 E ATIVE NEGATIV 05:05 E Yeast NEGATIV NL: active 012 E ATIVE NEGATIV 05:05 E Casts NEGATIV NL: active 012 E ATIVE NEGATIV 05:05 E Crystal NEGATIV NL: active s 012 E ATIVE NEGATIV 05:05 E METH OF C CATCH complet ADDISON 012 ed 05:05 CBC W DIFF AUTOMATED (02-06-2012 21:59) WBC 6.6 4.60 - complet 012 K/uL 10.20 ed 21:59 RBC 3.86 4.04 - Below complet 012 M/uL 6.13 low ed 21:59 normal HGB 12.1 12.20 - Below complet 012 g/dL 18.10 low ed 21:59 normal HCT 02-05-2 33 % 37.70 - Below complet 012 53.70 low ed 21:59 normal MCV 02-05-2 85.8 fL 80.0 - complet 012 97.0 ed 21:59 MCH 02-05-2 31.3 pg 27.0 - Above complet 012 31.20 high ed 21:59 normal MCHC 2 36.6 31.80 - Above complet 012 g/dL 35.40 high ed 21:59 normal RDW 02-05-2 11.9 % 11.60 - complet 012 14.80 ed 21:59 PLT 2 180 142 - complet 012 K/uL 424 ed 21:59 LY% 1108-2 20.6 % 10.0 - complet 012 50.0 ed 21:59 MO% 11-08-2 6.6 % 0.0 - complet 012 12.0 ed 21:59 NE% 08-2 71.1 % 37.0 - complet 012 80.0 ed 21:59 EO% 11-2 0.60 % 0.00 - complet 012 7.00 ed 21:59 BA% 1108-2 1.10 % 0.00 - complet 012 2.50 ed 21:59 LY# 11-08-2 1.35 0.60 - complet 012 K/uL 3.40 ed 21:59 MO# 11-08-2 0.43 0.00 - complet 012 K/uL 0.90 ed 21:59 NE# 11-08-2 4.66 2.00 - complet 012 K/uL 6.90 ed 21:59 EO# 11-08-2 0.04 0.00 - complet 012 K/uL 0.70 ed 21:59 BA# 11-08-2 0.07 0.00 - complet 012 K/uL 0.20 ed 21:59 Manual 2 NOT complet Diff 012 INDICAT ed 21:59 ED LIPASE (02-06-2012 21:59) LIPASE 164 U/L 73 - complet 012 393 ed 21:59 AMYLASE (02-06-2012 21:59) AMYLASE 55 IU/L 25 - complet 012 115 ed 21:59 COMPREHENSIVE METABOLIC PANEL CMP (02-06-2012 21:59) ALK 225 50 - Above complet PHOS 012 IU/L 136 high ed 21:59 normal TOTAL 7.9 6.40 - complet PROTEIN 012 g/dl 8.20 ed 21:59 ALBUMIN 4.3 3.40 - complet 012 g/dl 5.0 ed 21:59 GLOBULI 3.6 1.30 - Above complet N 012 g/dl 3.50 high ed 21:59 normal A/G 1.2 1.0 - complet RATIO 012 ratio 3.90 ed 21:59 GLOMERU complet 012 LAR ed 21:59 FILTRAT ION RATE INTERPR ETATION Normal complet 012 Range: ed 21:59 60 Ml/min/ 1.73 sq meters If complet 012 patient ed 21:59 is Luiza n, multipl y GFR by 1.120. *GFR complet 012 only ed 21:59 applies to adults over the age 18. SODIUM 135 136 - Below complet 012 mmol/L 145 low ed 21:59 normal POTASSI 3.5 3.50 - complet UM 012 mmol/L 5.10 ed 21:59 CHLORID 100 98 - complet E 012 mmol/L 107 ed 21:59 TOTAL 26 21 - 32 complet CO2 012 mmol/L ed 21:59 ANION 13 5 - 15 complet GAP 012 mmol/L ed 21:59 GLUCOSE 106 70 - complet 012 mg/dl 120 ed 21:59 BUN 14 7 - 18 complet 012 mg/dl ed 21:59 CREATIN 2 0.8 0.60 - complet INE 012 mg/dl 1.30 ed 21:59 AGE [birth year]2 41 yrs complet 012 ed 21:59 GFR 60 complet 012 ml/min ed 21:59 CALCIUM 8.6 8.50 - complet 012 mg/dl 10.10 ed 21:59 TOTAL 0.8 0.20 - complet SHANIQUA 012 mg/dl 1.0 ed 21:59 AST 59 IU/L 15 - 37 Above complet (SGOT) 012 high ed 21:59 normal ALT 76 IU/L 30 - 65 Above complet (SGPT) 012 high ed 21:59 normal
--- OUTSIDE RECORDS SUMMARY | 2017-02-10 14:10 | External Medical Summary Rpt | CCD ---
Author Author , VINCENT KAUR Address Unknown Phone [email or web address] Purpose Continuity of Care Document - 02-06-2012 through 2016 Problems Code Diagnosis DOS Provider Status F32.9 MAJOR 07-15-2016 DEPRESSIVE DISORDER, SINGLE EPISODE, UNSPECIFIED I10 ESSENTIAL 07-15-2016 (PRIMARY) HYPERTENSIO N R10.32 LEFT LOWER 07-15-2016 QUADRANT PAIN Z79.01 CERTIFIED PHARMACY TECH 07-15-2016 (CURRENT) USE OF ANTICOAGULA NTS Z79.899 [...] 012 ed 21:32 TROPONI N? _YES_ 2.2153. [facility]. . .M TROPONI 0.00 0.00 - complet [...]
--- OUTSIDE RECORDS SUMMARY | 2017-02-10 14:10 | External Medical Summary Rpt | CCD ---
Demographics Preferred Language [place] Marital Status Unknown Faith Affiliation Unknown Race Unknown Ethnic Group Unknown Author Author , LAMONT KAUR Address Unknown Phone Immunization No patient found.
--- OUTSIDE RECORDS SUMMARY | 2017-02-10 14:10 | External Medical Summary Rpt | CCD ---
Demographics Preferred Language Romanian Marital Status Unknown Catholic Affiliation Unknown Race Unknown Ethnic Group Unknown Author Author , LAMONT KAUR Address Unknown Phone Immunization No patient found.
[2017-02-10 14:13] LABS: HEMOGLOBIN 13.9 g/dL (12.2-16.2); LYMPH # 2.5 K/mm3 (0.7-4.5); LYMPH % 42.2 % (10-50.0)
[2017-02-10 15:57] LABS: BUN 24 mg/dL (7-18); GFR (ESTIMATED) 44 ML/MIN (59-)
--- NOTE | 2017-02-10 16:05 | Emergency Room Report ---
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 N Clinical Suspician of Infection? N Mental Status: 1 - Regular (Normal Baseline) Sepsis Risk:Low Sepsis Risk Have you (or family members/close friends) recently traveled outside the [place]? N If Yes, where/when: Have you had exposure to infectious disease within the past month? TB? Other? Specify: Source patient, RN notes reviewed, family, RN/MD Exam Limitations no limitations Comment This is a 46-year-old lady presented emergency room with midsternal chest pain, onset 1 hour prior to arrival, radiating to the LEFT shoulder, LEFT jaw, associated with diaphoresis and shortness of breath. Patient denies any previous cardiac events, any previous cardiac workup. Approximately ago she had a brain bleed and she was sent to [facility], currently on Effient. Cardiac Chest Pain Chest pain indicative of cardiac Yes Timing/Duration just prior to arrival (about one hour prior to arriva) Severity moderate Modifying Factors Improves With: rest. Worsens With: movement. Associated Symptoms chest pain, diaphoresis, shortness of breath ALLERGIES Coded Allergies: latex (Intermediate, I-RASH 02/05/16) morphine (Intermediate, 06/26/16) ciprofloxacin (From CIPRO) (Mild, 06/26/16) fentanyl (03/18/15) lisinopril (03/18/15) ofloxacin (From FLOXIN) (03/18/15) Home Medications Active Scripts Azithromycin (Zithromycin (Z-CÉSAR) 250MG Tab) 250 MG PO DAILY #6 TAB Prov: 12/24/16 Benzonatate (Tessalon Perle) 100 MG PO TID #15 SGL Prov: 12/24/16 HYDROCODONE/ACETAMINOPHEN ([place] 5-325 Tablet) 1 TAB PO Q6HP PRN pain #10 TAB Prov: 12/24/16 Reported Medications Verapamil Hcl (Isoptin SR) 120 MG PO BID Atorvastatin Calcium (Lipitor 40MG) 40 MG PO DAILY TRIAMTERENE/HYDROCHLOROTHIAZID (Dyazide 37.5-25 Capsule) 1 CAP PO DAILY HYDROCHLOROTHIAZIDE (Hydrochlorothiazide) 25 MG PO DAILY Apixaban (Eliquis) 5 MG PO BID POTASSIUM CHL (Potassium Chloride) 20 MEQ PO BID Quetiapine Fumarate (Quetiapine 200MG) 200 MG PO QHS #30 Vortioxetine Hydrobromide (Brintellix) 20 MG PO DAILY #30 History Medical History General CAD? No Angina: No [place]: No Hypertension? Yes Hyperlipidemia? No CHF? No DVT? Yes PE? No COPD? No Asthma? No Anemia? No GERD? No Gastric ulcers? No GI Bleed? No Hernia? No Thyroid Problems? No Hypothyroidism? No CVA? No Seizures? No Diabetes? No Insulin Dependent: No Insulin Pump: No Home FSBS? No Renal Insuffiency? No End Stage Renal Disease? No UTI? No Stones? Yes BPH? No GB Disease: Yes Nephritic Syndrome? No Asplenia? No Hepatitis? No Sickle Cell Disease? No Arthritis? No Migraines? Yes Cataracts? No Glaucoma? No MRSA? No HIV? No TB? No Anxiety? Yes Depression? Yes Cancer? No More? 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/A Social History Smoking Hx Smoker: Never Smoker Tobacco: No Type N/A Are you/the child exposed to second-hand smoke: No Alcohol Alcohol: No Review of Systems All Other Systems Reviewed and Negative Respiratory shortness of breath Cardiovascular chest pain Physical Exam Vital Signs Vital Signs Date Time Temp Pulse Resp B/P Pulse O2 O2 Flow FiO2 Ox Delivery Rate 02/10 1807 72 02/10 1807 96 ROOM AIR 02/10 1750 98.5 72 20 148/86 96 ROOM AIR 02/10 1656 76 18 135/56 98 02/10 1613 18 02/10 1556 76 18 135/83 98 02/10 1403 98.3 91 18 156/92 98 General Appearance normal appearance, WD/WN Respiratory Status Yes: trachea midline, chest symmetrical, non tender chest. No: respiratory distress. Lung Sounds bilateral: normal breath sounds, lungs clear. 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 No Comment 16:30-case d/w Dr. San, advised of patient's presentation and findings Results/Orders Laboratory Tests 02/10/17 1620: Creatine Kinase 52, CK-MB (CK-2) Rel Index 1.0, CK and CKMB Interp < 0.5, Troponin I < 0.02 02/10/17 1355: B-Natriuretic Peptide 25 02/10/17 1355: Sodium 139, Potassium 3.2 L, Chloride 100, Carbon Dioxide 27, BUN 24 H, Creatinine 1.3 H, Estimated Creat Clear 71, Estimated GFR (MDRD) 44 L, Glucose 140 H, Calcium 9.7, Total Bilirubin 0.9, AST 62 H, ALT 105 H, Alkaline Phosphatase 155 H, Creatine Kinase 55, CK-MB (CK-2) Rel Index 0.9, CK and CKMB Interp < 0.5, Troponin I 0.07 H, Total Protein 8.3 H, Albumin 4.0, Globulin 4.3 H, Albumin/Globulin Ratio 0.9 L, D-Dimer < 100, WBC 5.9, RBC 4.66, Hgb 13.9, Hct 40.1, MCV 86.1, RDW 12.2, Plt Count 205, MPV 7.7, Gran % 47.8, Gran # 2.8, Lymphocytes % 42.2, Monocytes % 4.3, Eosinophils % 4.4, Basophils % 1.2, Lymphocytes # 2.5, Monocytes # 0.3, Eosinophils # 0.3, Basophils # 0.1, PUBS MCHC 34.7, MCH 29.8 Current Medication Orders Sig/Caio Start time Last Medication Dose Route Stop Time Status Admin Sodium Chloride 1,000 ML .Q1H1M 02/10 1715 DC IV 02/10 1815 Sodium Chloride 10 ML PRN PRN 02/10 1715 AC IV 02/11 1706 Sodium Chloride 1,000 ML .STK-MED ONE 02/10 1710 DC IV Nitroglycerin 0.4 MG [id number] PRN 02/10 1615 AC 02/10 SL 1613 Potassium Chloride 40 MEQ ONCE ONE 02/10 1615 DC 02/10 PO 02/10 1616 1611 Nitroglycerin 0 .STK-MED ONE 02/10 1610 DC SL Potassium Chloride 0 .STK-MED ONE 02/10 1610 DC PO Aspirin 0 .STK-MED ONE 02/10 1600 DC .ROUTE Aspirin 324 MG ONCE ONE 02/10 1415 DC 02/10 PO 02/10 1416 1601 Sodium Chloride 10 ML PRN PRN 02/10 1415 AC IV 02/11 1402 Orders Procedure Date/time Status [id number] FAT/LO CHO/PRIYANKA 02/11 B Active CARDIAC ENZYMES 02/11 0100 Active CARDIAC ENZYMES 02/10 1900 Active ADMITTED PT IS ACTUALLY IN BED 02/10 1751 Active Decision to admit 02/10 1619 Active CARDIAC ENZYMES 02/10 1606 Complete D-DIMER 02/10 1414 Complete BRAIN NATRIURETIC PEPTIDE 02/10 1414 Complete ELECTROCARDIOGRAM REQUEST 02/10 1403 Active IV SALINE LOCK 02/10 1403 Active FOREIGN LAW CONSULTANT 02/10 1403 Active CBC WITH AUTO DIFF 02/10 1403 Complete CARDIAC ENZYMES 02/10 1403 Complete CHEM 12 PROFILE 02/10 1403 Complete ADMIT PATIENT 02/10 UNK Active 12 LEAD EKG-MARA (INITIAL) 02/10 UNK Active PULSE OXIMETRY REQUEST 02/10 UNK Active OXYGEN REQUEST 02/10 UNK Active VITAL SIGNS 02/10 UNK Active NURSE ASSISTANT 02/10 UNK Active POM NURSE LATRELL HOSE ORDER 02/10 UNK Active CODE STATUS 02/10 UNK Active PATIENT ACTIVITY ORDER 02/10 UNK Active PHYSICIANS CONSULT 02/10 UNK Active CM/EKG CM/housing inspectors Rhythm Normal Sinus Rhythm Rate 88 Ectopy No Comments no acute ischemic changes EKG rate, NSR, rhythm, no evid. of ischemic chgs, no ectopy, normal QRS, normal VT, no EKG for comparison, non-spec. ST/Twave chgs, ST elevation, ST depression, LBBB, RBBB, ectopy, abnormal Q waves XRAY/CT/US XRAY/CT/US XRAY chest XR interpretation by reviewed by me, discussed w/radiologist Xray Results no infiltrates, normal heart size, normal lung inflation gideon Departure Departure Time of Disposition 1613 Disposition Still a Patient Clinical Impression Primary Impression: Chest pain Qualifiers: Chest pain type: unspecified Qualified Code: R07.9 - Chest pain, unspecified Secondary Impressions: Acute renal injury, Hypokalemia Condition STABLE ED Critical Care Critical Care No at [id number]
--- NOTE | 2017-02-10 16:05 | Emergency Room Report ---
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 N Clinical Suspician of Infection? N Mental Status: 1 - Regular (Normal Baseline) Sepsis Risk:Low Sepsis Risk Have you (or family members/close friends) recently traveled outside the [place]? N If Yes, where/when: Have you had exposure to infectious disease within the past month? TB? Other? Specify: Source patient, RN notes reviewed, family, RN/MD Exam Limitations no limitations Comment This is a 46-year-old lady presented emergency room with midsternal chest pain, onset 1 hour prior to arrival, radiating to the LEFT shoulder, LEFT jaw, associated with diaphoresis and shortness of breath. Patient denies any previous cardiac events, any previous cardiac workup. Approximately ago she had a brain bleed and she was sent to [facility], currently on Effient. Cardiac Chest Pain Chest pain indicative of cardiac Yes Timing/Duration just prior to arrival (about one hour prior to arriva) Severity moderate Modifying Factors Improves With: rest. Worsens With: movement. Associated Symptoms chest pain, diaphoresis, shortness of breath ALLERGIES Coded Allergies: latex (Intermediate, I-RASH 02/05/16) morphine (Intermediate, 06/26/16) ciprofloxacin (From CIPRO) (Mild, 06/26/16) fentanyl (03/18/15) lisinopril (03/18/15) ofloxacin (From FLOXIN) (03/18/15) Home Medications Active Scripts Azithromycin (Zithromycin (Z-CÉSAR) 250MG Tab) 250 MG PO DAILY #6 TAB Prov: 12/24/16 Benzonatate (Tessalon Perle) 100 MG PO TID #15 SGL Prov: 12/24/16 HYDROCODONE/ACETAMINOPHEN ([place] 5-325 Tablet) 1 TAB PO Q6HP PRN pain #10 TAB Prov: 12/24/16 Reported Medications Verapamil Hcl (Isoptin SR) 120 MG PO BID Atorvastatin Calcium (Lipitor 40MG) 40 MG PO DAILY TRIAMTERENE/HYDROCHLOROTHIAZID (Dyazide 37.5-25 Capsule) 1 CAP PO DAILY HYDROCHLOROTHIAZIDE (Hydrochlorothiazide) 25 MG PO DAILY Apixaban (Eliquis) 5 MG PO BID POTASSIUM CHL (Potassium Chloride) 20 MEQ PO BID Quetiapine Fumarate (Quetiapine 200MG) 200 MG PO QHS #30 Vortioxetine Hydrobromide (Brintellix) 20 MG PO DAILY #30 History Medical History General CAD? No Angina: No [place]: No Hypertension? Yes Hyperlipidemia? No CHF? No DVT? Yes PE? No COPD? No Asthma? No Anemia? No GERD? No Gastric ulcers? No GI Bleed? No Hernia? No Thyroid Problems? No Hypothyroidism? No CVA? No Seizures? No Diabetes? No Insulin Dependent: No Insulin Pump: No Home FSBS? No Renal Insuffiency? No End Stage Renal Disease? No UTI? No Stones? Yes BPH? No GB Disease: Yes Nephritic Syndrome? No Asplenia? No Hepatitis? No Sickle Cell Disease? No Arthritis? No Migraines? Yes Cataracts? No Glaucoma? No MRSA? No HIV? No TB? No Anxiety? Yes Depression? Yes Cancer? No More? 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 Social History Smoking Hx Smoker: Never Smoker Tobacco: No Type N/A Are you/the child exposed to second-hand smoke: No Alcohol Alcohol: No Review of Systems All Other Systems Reviewed and Negative Respiratory shortness of breath Cardiovascular chest pain Physical Exam Vital Signs Vital Signs Date Time Temp Pulse Resp B/P Pulse O2 O2 Flow FiO2 Ox Delivery Rate 02/10 1807 72 02/10 1807 96 ROOM AIR 02/10 1750 98.5 72 20 148/86 96 ROOM AIR 02/10 1656 76 18 135/56 98 02/10 1613 18 02/10 1556 76 18 135/83 98 02/10 1403 98.3 91 18 156/92 98 General Appearance normal appearance, WD/WN Respiratory Status Yes: trachea midline, chest symmetrical, non tender chest. No: respiratory distress. Lung Sounds bilateral: normal breath sounds, lungs clear. 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 No Comment 16:30-case d/w Dr. San, advised of patient's presentation and findings Results/Orders Laboratory Tests 02/10/17 1620: Creatine Kinase 52, CK-MB (CK-2) Rel Index 1.0, CK and CKMB Interp < 0.5, Troponin I < 0.02 02/10/17 1355: B-Natriuretic Peptide 25 02/10/17 1355: Sodium 139, Potassium 3.2 L, Chloride 100, Carbon Dioxide 27, BUN 24 H, Creatinine 1.3 H, Estimated Creat Clear 71, Estimated GFR (MDRD) 44 L, Glucose 140 H, Calcium 9.7, Total Bilirubin 0.9, AST 62 H, ALT 105 H, Alkaline Phosphatase 155 H, Creatine Kinase 55, CK-MB (CK-2) Rel Index 0.9, CK and CKMB Interp < 0.5, Troponin I 0.07 H, Total Protein 8.3 H, Albumin 4.0, Globulin 4.3 H, Albumin/Globulin Ratio 0.9 L, D-Dimer < 100, WBC 5.9, RBC 4.66, Hgb 13.9, Hct 40.1, MCV 86.1, RDW 12.2, Plt Count 205, MPV 7.7, Gran % 47.8, Gran # 2.8, Lymphocytes % 42.2, Monocytes % 4.3, Eosinophils % 4.4, Basophils % 1.2, Lymphocytes # 2.5, Monocytes # 0.3, Eosinophils # 0.3, Basophils # 0.1, PUBS MCHC 34.7, MCH 29.8 Current Medication Orders Sig/Caio Start time Last Medication Dose Route Stop Time Status Admin Sodium Chloride 1,000 ML .Q1H1M 02/10 1715 DC IV 02/10 1815 Sodium Chloride 10 ML PRN PRN 02/10 1715 AC IV 02/11 1706 Sodium Chloride 1,000 ML .STK-MED ONE 02/10 1710 DC IV Nitroglycerin 0.4 MG [id number] PRN 02/10 1615 AC 02/10 SL 1613 Potassium Chloride 40 MEQ ONCE ONE 02/10 1615 DC 02/10 PO 02/10 1616 1611 Nitroglycerin 0 .STK-MED ONE 02/10 1610 DC SL Potassium Chloride 0 .STK-MED ONE 02/10 1610 DC PO Aspirin 0 .STK-MED ONE 02/10 1600 DC .ROUTE Aspirin 324 MG ONCE ONE 02/10 1415 DC 02/10 PO 02/10 1416 1601 Sodium Chloride 10 ML PRN PRN 02/10 1415 AC IV 02/11 1402 Orders Procedure Date/time Status [id number] FAT/LO CHO/PRIYANKA 02/11 B Active CARDIAC ENZYMES 02/11 0100 Active CARDIAC ENZYMES 02/10 1900 Active ADMITTED PT IS ACTUALLY IN BED 02/10 1751 Active Decision to admit 02/10 1619 Active CARDIAC ENZYMES 02/10 1606 Complete D-DIMER 02/10 1414 Complete BRAIN NATRIURETIC PEPTIDE 02/10 1414 Complete ELECTROCARDIOGRAM REQUEST 02/10 1403 Active IV SALINE LOCK 02/10 1403 Active FISHERY BIOLOGIST 02/10 1403 Active CBC WITH AUTO DIFF 02/10 1403 Complete CARDIAC ENZYMES 02/10 1403 Complete CHEM 12 PROFILE 02/10 1403 Complete ADMIT PATIENT 02/10 UNK Active 12 LEAD EKG-MARA (INITIAL) 02/10 UNK Active PULSE OXIMETRY REQUEST 02/10 UNK Active OXYGEN REQUEST 02/10 UNK Active VITAL SIGNS 02/10 UNK Active FACILITIES TECHNICIAN 02/10 UNK Active POM NURSE LATRELL HOSE ORDER 02/10 UNK Active CODE STATUS 02/10 UNK Active PATIENT ACTIVITY ORDER 02/10 UNK Active PHYSICIANS CONSULT 02/10 UNK Active 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 of ischemic chgs, no ectopy, normal QRS, normal OK, no EKG for comparison, non-spec. ST/Twave chgs, ST elevation, ST depression, LBBB, RBBB, ectopy, abnormal Q waves XRAY/CT/US XRAY/CT/US XRAY chest XR interpretation by reviewed by me, discussed w/radiologist Xray Results no infiltrates, normal heart size, normal lung inflation gideon Departure Departure Time of Disposition 1613 Disposition Still a Patient Clinical Impression Primary Impression: Chest pain Qualifiers: Chest pain type: unspecified Qualified Code: R07.9 - Chest pain, unspecified Secondary Impressions: Acute renal injury, Hypokalemia Condition STABLE ED Critical Care Critical Care No at 1825
--- NOTE | 2017-02-10 16:13 | RADIOLOGY REPORT PS360 ---
CHEST(2 VIEWS-NOT PORTABLE) HISTORY: Chest pain CP ORDERING PHYSICIAN: Tio Cole MD PATIENT AGE: 46 years COMPARISON: 01/15/2017 FINDINGS: The cardiomediastinal silhouette and pulmonary vascularity are within normal limits. The lungs are clear without infiltrates, suspicious nodules, or pleural effusions. No acute bony abnormalities. There are small metallic densities overlying the lower cervical spine centrally IMPRESSION: No change with no acute finding
--- OUTSIDE RECORDS SUMMARY | 2017-02-10 16:29 | External Medical Summary Rpt | CCD ---
Demographics Preferred Language Slovak Marital Status Unknown Shinto Affiliation Unknown Race Unknown Ethnic Group Unknown Author Author , LAMONT KAUR Address Unknown Phone Immunization No patient found.
--- OUTSIDE RECORDS SUMMARY | 2017-02-10 16:29 | External Medical Summary Rpt | CCD ---
Author Author , VINCENT KAUR Address Unknown Phone [email or web address] Purpose Continuity of Care Document - 02-06-2012 through 2016 Problems Code Diagnosis DOS Provider Status F32.9 MAJOR 07-15-2016 DEPRESSIVE DISORDER, SINGLE EPISODE, UNSPECIFIED I10 ESSENTIAL 07-15-2016 (PRIMARY) HYPERTENSIO N R10.32 LEFT LOWER 07-15-2016 QUADRANT PAIN Z79.01 MANAGER HAIR 07-15-2016 (CURRENT) USE OF ANTICOAGULA NTS Z79.899 [...] L ed PPP-mCn 14:30 mg/L c FEU Magnesium SerPl-mCnc (09-09-2016 13:55) Magnesi 1.9 1.9-2.4 complet um 017 mg/dL ed SerPl-m 13:55 Cnc D dimer FEU PPP-mCnc (09-09-2016 13:55) D dimer < 0.28 <0.51 complet FEU 017 mg/L ed PPP-mCn 13:55 FEU c CRP SerPl-mCnc (08-12-2016 16:56) CRP 0.3 0-0.9 complet SerPl-m 017 mg/dL ed Cnc 16:56 ESR Bld Qn (08-12-2016 16:56) ESR Bld 28 0-20 complet Qn 017 mm/hr ed 16:56 T4 Free SerPl-mCnc (06-13-2016 13:37) T4 Free 0.9 0.8-1.7 complet 017 ng/dL ed SerPl-m 13:37 Cnc TSH SerPl DL<=0.005 mIU/L-aCnc (06-13-2016 13:37) TSH 2.85 0.4-4.2 complet SerPl 017 uIU/mL ed DL<=0.0 13:37 05 mIU/L-a Cnc FSH SerPl IRP2-aCnc (06-13-2016 13:37) FSH 91.6 complet SerPl 017 mIU/mL ed IRP2-aC 13:37 nc LH SerPl-aCnc (06-13-2016 13:37) LH 76.5 complet SerPl-a 017 mIU/mL ed Cnc 13:37 Prolactin SerPl 3rd IS-mCnc (06-13-2016 13:37) Prolact 12.9 4.4-23. complet in 017 ng/mL 3 ed SerPl 13:37 3rd IS-mCnc TROPONIN I (03-08-2012 21:32) TROPONI 0.00 0.00 - complet N-I 012 ng/ml 0.06 ed 21:32 INITIAL complet 012 ed 21:32 TROPONI N? _YES_ 2.5386. VWC. . .M RD BCK Keely complet VRFY: 012 ed 21:32 153/xin 0 - complet 012 0.06 ed 21:32 ng/ml (NEGATI VE) > 0.06 complet 012 ng/ml ed 21:32 (POSITI VE) CBC W DIFF AUTOMATED (03-08-2012 21:30) WBC 6.5 4.60 - complet 012 K/uL 10.20 ed 21:30 RBC 4.05 4.04 - complet 012 M/uL 6.13 ed 21:30 HGB 12.6 12.20 - complet 012 g/dL 18.10 ed 21:30 HCT 35 % 37.70 - Below complet 012 53.70 low ed 21:30 normal MCV 86.4 fL 80.0 - complet 012 97.0 ed 21:30 MCH 31.1 pg 27.0 - complet 012 31.20 ed 21:30 MCHC 36.0 31.80 - Above complet 012 g/dL 35.40 high ed 21:30 normal RDW 11.5 % 11.60 - Below complet 012 14.80 low ed 21:30 normal PLT 223 142 - complet 012 K/uL 424 ed 21:30 LY% 31.8 % 10.0 - complet 012 50.0 ed 21:30 MO% 7.6 % 0.0 - complet 012 12.0 ed 21:30 NE% 57.7 % 37.0 - complet 012 80.0 ed 21:30 EO% 1.70 % 0.00 - complet 012 7.00 ed 21:30 BA% 1.20 % 0.00 - complet 012 2.50 ed 21:30 LY# 03-08-2 2.06 0.60 - complet 012 K/uL 3.40 ed 21:30 MO# 03-08-2 0.49 0.00 - complet 012 K/uL 0.90 ed 21:30 NE# 03-08-2 3.74 2.00 - complet 012 K/uL 6.90 ed 21:30 EO# 03-08-2 0.11 0.00 - complet 012 K/uL 0.70 ed 21:30 BA# 0.08 0.00 - complet 012 K/uL 0.20 ed 21:30 Manual NOT complet Diff 012 INDICAT ed 21:30 ED CKMB wCPK (03-08-2012 21:30) CK 61 U/L 21 - complet 012 215 ed 21:30 CKMB 0.6 0.01 - complet 012 ng/ml 3.60 ed 21:30 CKMB NOT 0 - complet INDEX 012 APPL % 4.10 ed 21:30 MMB complet 012 (ng/ml) ed 21:30 Relativ e Index NON AMI complet 012 </= ed 21:30 5.0 NA HOLCOMB complet 012 ZONE > ed 21:30 5.0 </= 4.0 AMI > complet 012 5.0 > ed 21:30 4.0 RELATIV complet 012 E INDEX ed 21:30 NOT AVAILAB LE ON PATIENT S W/ARELIS L CKMB MYOGLOBIN PLASMA (03-08-2012 21:30) MYOGLOB 20 10 - 92 complet IN 012 ng/ml ed 21:30 COMPREHENSIVE METABOLIC PANEL CMP (03-08-2012 21:30) SODIUM 139 136 - complet 012 mmol/L 145 ed 21:30 POTASSI 3.8 3.50 - complet UM 012 mmol/L 5.10 ed 21:30 CHLORID 101 98 - complet E 012 mmol/L 107 ed 21:30 TOTAL 32 21 - 32 complet CO2 012 mmol/L ed 21:30 ANION 10 5 - 15 complet GAP 012 mmol/L ed 21:30 GLUCOSE 87 70 - complet 012 mg/dl 120 ed 21:30 BUN 19 7 - 18 Above complet 012 mg/dl high ed 21:30 normal CREATIN 1.0 0.60 - complet INE 012 mg/dl 1.30 ed 21:30 AGE [age] yrs complet 012 ed 21:30 GFR 60 complet 012 ml/min ed 21:30 CALCIUM 8.9 8.50 - complet 012 mg/dl 10.10 ed 21:30 TOTAL 0.3 0.20 - complet SHANIQUA 012 mg/dl 1.0 ed 21:30 AST 24 IU/L 15 - 37 complet (SGOT) 012 ed 21:30 ALT 31 IU/L 30 - 65 complet (SGPT) 012 ed 21:30 ALK 119 50 - complet PHOS 012 IU/L 136 ed 21:30 TOTAL 7.6 6.40 - complet PROTEIN 012 g/dl 8.20 ed 21:30 ALBUMIN 3.7 3.40 - complet 012 g/dl 5.0 ed 21:30 GLOBULI 3.9 1.30 - Above complet N 012 g/dl 3.50 high ed 21:30 normal A/G 0.9 1.0 - Below complet RATIO 012 ratio 3.90 low ed 21:30 normal GLOMERU complet 012 LAR ed 21:30 FILTRAT ION RATE INTERPR ETATION Normal complet 012 Range: ed 21:30 60 Ml/min/ 1.73 sq meters If complet 012 patient ed 21:30 is Luiza n, multipl y GFR by 1.120. *GFR complet 012 only ed 21:30 applies to adults over the age 18. COMPREHENSIVE METABOLIC PANEL CMP (02-07-2012 08:52) *GFR [...]
--- OUTSIDE RECORDS SUMMARY | 2017-02-10 16:29 | External Medical Summary Rpt | CCD ---
Demographics Preferred Language Wallisian Marital Status Unknown Mu-Ism Affiliation Unknown Race Unknown Ethnic Group Unknown Author Author , LAMONT KAUR Address Unknown Phone Immunization No patient found.
--- OUTSIDE RECORDS SUMMARY | 2017-02-10 16:29 | External Medical Summary Rpt | CCD ---
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 _YES_ 2.0509. VWC. . .M RD BCK Keely complet [...]
[2017-02-10 17:50] VITALS: BP 148/86
[2017-02-10 18:07] VITALS: BP 148/86
[2017-02-10] MEDS ORDERED: VISTARIL25 MG PO (18:35)
[2017-02-10] MEDS ORDERED: PROTONIX 40MG T40 MG PO (18:36)
--- NOTE | 2017-02-10 18:49 | HISTORY AND PHYSICAL REPORT ---
History and Physical ([facility]CA) Date of admission: 02/10/17 Chief complaint: chest pain History: History of Present Illness: Ms Izaguirre is a 46 year old female with a complicated history with multiple blood clots in the lung, left eye, head and arm who presented to the ER with right upper sharp chest pain associated with SOB, nausea and palpitations. The pain was relieved in the ER with nitro. She had felt well prior to this but did work yesterday. She describes SOB with a productive cough for the past 5 months and has been on several antibiotics for this. With evaluation in the ER she had no acute changes in her CXR and non-specific changes on the EKG. She was admitted for further evaluation and Tx with a cardiology consults. To note: She is a patient of Dr. Bailee Yoo and is also followed by cardiology, hematology, and endocrinology. She has an appt to see Dr. Bassett for her SOB and persistent cough. Past Medical History: Medical History: CAD? No Angina: No MO: No Hypertension? Yes Hyperlipidemia? Yes CHF? No DVT? Yes PE? Yes COPD? Yes Asthma? No Anemia? No GERD? No Gastric ulcers? Yes GI Bleed? Yes Hernia? No Thyroid Problems? Yes Hypothyroidism? No CVA? Yes Seizures? No Diabetes? No Insulin Dependent: No Insulin Pump: No Home FSBS? No Renal Insuffiency? No UTI? No Stones? Yes BPH? No GB Disease: Yes Nephritic Syndrome? No Asplenia? No Hepatitis? No Sickle Cell Disease? No Arthritis? No Migraines? Yes Cataracts? No Glaucoma? No MRSA? No HIV? No TB? No Anxiety? Yes Depression? Yes Cancer? No More? 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 TONSILS HYSTERECTOMY TUMMY TUCK LIPOSUCTION BREAST AUGMENTATION Medications: Reported Medications Hydroxyzine Pamoate (Vistaril) 25 MG PO DAILY Pantoprazole Sodium (Protonix 40MG TAB) 40 MG PO DAILY Verapamil Hcl (Isoptin SR) 120 MG PO BID Atorvastatin Calcium (Lipitor 40MG) 40 MG PO DAILY TRIAMTERENE/HYDROCHLOROTHIAZID (Dyazide 37.5-25 Capsule) 1 CAP PO DAILY HYDROCHLOROTHIAZIDE (Hydrochlorothiazide) 25 MG PO DAILY Apixaban (Eliquis) 5 MG PO BID POTASSIUM CHL (Potassium Chloride) 20 MEQ PO BID Quetiapine Fumarate (Quetiapine 200MG) 200 MG PO QHS #30 Vortioxetine Hydrobromide (Brintellix) 20 MG PO DAILY #30 Allergies: Coded Allergies: latex (Intermediate, I-RASH 02/05/16) morphine (Intermediate, 06/26/16) ciprofloxacin (From CIPRO) (Mild, 06/26/16) fentanyl (03/18/15) lisinopril (03/18/15) ofloxacin (From FLOXIN) (03/18/15) Family History: Family history: Postive for: CAD, HTN. Negative for: DM. Social History: Smoking Hx Tobacco: No Smoker: Never Smoker Type: N/A Packs/day: N/A Are you exposed to second hand No Alcohol: Alcohol: No Hx of Drug Use: Drug Use? No Review of Systems: ENT Positive for: sinus problems. No: ear ache, sore throat. Cardiovascular Positive for: chest pain, palpitations. No: edema. Respiratory Positive for: shortness of air, productive cough (sputum) (green sputum). No: hemoptysis. GI Positive for: melena, nausea, vomitting. No: constipation, diarrhea. (female) No: hematuria. Neurological Positive for: dizziness, gait problem, headache. No: seizure, syncope. Eyes Positive for: vision loss (left eye after blood clot). Musculoskeletal No: joint pain. Physical Exam: Vital signs: 1ST Vital Signs Result Date Time Pulse Ox 98 02/10 1403 B/P 156/92 02/10 1403 Temp 98.3 02/10 1403 Pulse 91 02/10 1403 Resp 18 02/10 1403 O2 Delivery ROOM AIR 02/10 1750 Exam: General appearance: alert, no acute distress, well-developed, well-nourished Eyes: anicteric, pupils reactive to light ENT: mucous membranes moist, pharynx normal Neck: no carotid bruit, lymphadenopathy (absent), thyroid (normal) Cardiovascular: regular rate & rhythm Respiratory: clear to auscultation (bilat anterior and posterior) ABD: non-distended, soft, no tenderness, no guarding, bowel sounds present Extremities: moves all, no peripheral edema, warm, no calf tenderness Neuro: alert, oriented, speech clear Lab data: Labs: Laboratory Tests 02/10/17 1620: Creatine Kinase 52, CK-MB (CK-2) Rel Index 1.0, CK and CKMB Interp < 0.5, Troponin I < 0.02 02/10/17 1355: B-Natriuretic Peptide 25 02/10/17 1355: Sodium 139, Potassium 3.2 L, Chloride 100, Carbon Dioxide 27, BUN 24 H, Creatinine 1.3 H, Estimated Creat Clear 71, Estimated GFR (MDRD) 44 L, Glucose 140 H, Calcium 9.7, Total Bilirubin 0.9, AST 62 H, ALT 105 H, Alkaline Phosphatase 155 H, Creatine Kinase 55, CK-MB (CK-2) Rel Index 0.9, CK and CKMB Interp < 0.5, Troponin I 0.07 H, Total Protein 8.3 H, Albumin 4.0, Globulin 4.3 H, Albumin/Globulin Ratio 0.9 L, D-Dimer < 100, WBC 5.9, RBC 4.66, Hgb 13.9, Hct 40.1, MCV 86.1, RDW 12.2, Plt Count 205, MPV 7.7, Gran % 47.8, Gran # 2.8, Lymphocytes % 42.2, Monocytes % 4.3, Eosinophils % 4.4, Basophils % 1.2, Lymphocytes # 2.5, Monocytes # 0.3, Eosinophils # 0.3, Basophils # 0.1, PUBS MCHC 34.7, MCH 29.8 Radiology results: Results: 02/10/17 CXR IMPRESSION: No change with no acute finding Diagnosis(es): 1. Hypokalemia 2. Chest pain 3. Elevated LFTs 4. Renal insufficiency 5. History of stroke 6. History of pulmonary embolism Plan: cardiology has been consulted; will start on some of home meds; will repeat labs in AM (Veronica Kam APRN) Diagnosis(es): 1. Chest pain Status: Acute 2. Hypokalemia Status: Acute 3. Elevated LFTs 4. Renal insufficiency 5. History of stroke Status: Chronic 6. History of pulmonary embolism Status: Chronic Plan: Patient seen and agree with above note. She is admitted for further observation and testing after having chest pain today. Cardiology was consulted by the ER physician. OK to eat now, will be NPO at [facility]. Will hold Eliquis and give one dose of Lovenox 1mg/kg now. (Mena MISHRA,Flakito) at 1849 at 1944
[2017-02-10 19:40] VITALS: BP 114/63
[2017-02-10 20:30] VITALS: BP 130/85
[2017-02-10 23:58] VITALS: BP 114/63
[2017-02-11 04:06] VITALS: BP 117/68
--- NOTE | 2017-02-11 07:26 | PHARMACY CLINIC NOTE ---
Patient Demographics Patient Demographics Admission date: 02/10/17 Date: 02/11/17 Time: 0725 Allergies Coded Allergies: latex (Intermediate, I-RASH 02/05/16) morphine (Intermediate, 06/26/16) ciprofloxacin (From CIPRO) (Mild, 06/26/16) fentanyl (03/18/15) lisinopril (03/18/15) ofloxacin (From FLOXIN) (03/18/15) HEIGHT- FT: 5 IN: 5.00 K.075 VTE General Information Labs: Laboratory Tests 02/10 1355 Hematology Hgb (12.2 - 16.2 g/dL) 13.9 Hct (37.0 - 47.0 %) 40.1 Plt Count (142 - 424 K/mm3) 205 Disclaimer The following section includes nursing documentation that has been pulled in for pharmacy review. Patient's VTE score: 2 Patient's VTE Risk: VERY LOW RISK Clinical trial participant? No VTE prophylaxis NQF [id number] VTE prophylaxis ordered? Yes Type of prophylaxis/treatment: LTARELL at [id number]
--- NOTE | 2017-02-11 07:26 | PHARMACY CLINIC NOTE ---
Patient Demographics Patient Demographics Admission date: 02/10/17 Date: 02/11/17 Time: 0725 Allergies Coded Allergies: latex (Intermediate, I-RASH 02/05/16) morphine (Intermediate, 06/26/16) ciprofloxacin (From CIPRO) (Mild, 06/26/16) fentanyl (03/18/15) lisinopril (03/18/15) ofloxacin (From FLOXIN) (03/18/15) HEIGHT- FT: 5 IN: 5.00 K.075 VTE General Information Labs: Laboratory Tests 02/10 1355 Hematology Hgb (12.2 - 16.2 g/dL) 13.9 Hct (37.0 - 47.0 %) 40.1 Plt Count (142 - 424 K/mm3) 205 Disclaimer The following section includes nursing documentation that has been pulled in for pharmacy review. Patient's VTE score: 2 Patient's VTE Risk: VERY LOW RISK Clinical trial participant? No VTE prophylaxis NQF [id number] VTE prophylaxis ordered? Yes Type of prophylaxis/treatment: LATRELL at [id number]
--- NOTE | 2017-02-11 07:34 | CONSULT NOTE ---
Standard Demographics Patient Demo Date of Consultation: 02/11/17 Referring Provider: Flakito San MD Reason for Consultation: Chest pain PRIMARY DIAGNOSIS: CHEST PAIN Problem list Problem list: 1. Recurrent DVT, PE and CVA\ A. On eliquis after having CVA on coumadin 2. History of MVP 3. HTN, treated for about 12 yrs 4. HLD, on lipitor for about 1 yr 5. Hiatal hernia 6. History of GI bleed A. History of GI ulcers and polyps 7. 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 Chronic vertigo/Mnire's disease 9. CKD stage II with creatinine 1.2 and GFR 44 History of present illness: History of present illness: 46 yo WF in bed in NAD. Relates onset of rapid heart rate along with right sided chest pain with radiation to right arm. Mild SOA noted. She was evaluated in ER and given NTG SL with symptoms resolving about 20 min later. Denies any nausea or vomiting. Reportedly had stress test about 3 yrs ago which reportedly was normal with no need for further evaluation. Patient was admitted overnight for observation. She has had no further episodes of chest pain. Troponins are returned normal 3. Electrocardiogram is sinus and unremarkable with no acute changes. Patient relates a history of mitral valve prolapse with a corresponding murmur with her last ultrasound for heart at least 3 years ago. Patient does have a lot of anxiety related to the of her son couple of years ago. Cardiology consulted for evaluation and recommendations. 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 TONSILS HYSTERECTOMY TUMMY TUCK LIPOSUCTION BREAST AUGMENTATION Allergies Coded Allergies: latex (Intermediate, I-RASH 02/05/16) morphine (Intermediate, 06/26/16) ciprofloxacin (From CIPRO) (Mild, 06/26/16) fentanyl (03/18/15) lisinopril (03/18/15) ofloxacin (From FLOXIN) (03/18/15) Home medications: Reported Medications Hydroxyzine Pamoate (Vistaril) 25 MG PO DAILY Pantoprazole Sodium (Protonix 40MG TAB) 40 MG PO DAILY Verapamil Hcl (Isoptin SR) 120 MG PO BID Atorvastatin Calcium (Lipitor 40MG) 40 MG PO DAILY TRIAMTERENE/HYDROCHLOROTHIAZID (Dyazide 37.5-25 Capsule) 1 CAP PO DAILY HYDROCHLOROTHIAZIDE (Hydrochlorothiazide) 25 MG PO DAILY Apixaban (Eliquis) 5 MG PO BID POTASSIUM CHL (Potassium Chloride) 20 MEQ PO BID Quetiapine Fumarate (Quetiapine 200MG) 200 MG PO QHS #30 Vortioxetine Hydrobromide (Brintellix) 20 MG PO DAILY #30 Current Medications: Current Medications Hydroxyzine Pamoate 25 MG Q8HP PRN PO (UNV) Acetaminophen 975 MG ONCE ONE PO (DC) Acetaminophen 0 .STK-MED ONE PO (DC) Hydroxyzine Pamoate 0 .STK-MED ONE PO (DC) Potassium Chloride 20 MEQ BID PO (UNV) Quetiapine Fumarate 200 MG QHS PO (UNV) Verapamil HCl 120 MG BID PO (UNV) Enoxaparin Sodium 90 MG ONCE ONE SC (UNV) Sodium Chloride 1,000 ML .Q25H IV (UNV) Benzonatate 100 MG TIDP PRN PO (UNV) Pantoprazole Sodium 40 MG DAILY PO (UNV) Sodium Chloride 1,000 ML .Q1H1M IV (DC) Sodium Chloride 10 ML PRN PRN IV Sodium Chloride 1,000 ML .STK-MED ONE IV (DC) Nitroglycerin 0.4 MG [id number] PRN SL Potassium Chloride 40 MEQ ONCE ONE PO (DC) Nitroglycerin 0 .STK-MED ONE SL (DC) Potassium Chloride 0 .STK-MED ONE PO (DC) Aspirin 0 .STK-MED ONE .ROUTE (DC) Aspirin 324 MG ONCE ONE PO (DC) Sodium Chloride 10 ML PRN PRN IV Immunization HX Ped.Immunizations UTD Yes DT/Tetanus Unknown Flu [id number] Pneumonia Never Had TB Test in last year No Family history Family HX Family Hx Insignificant No Diabetes Yes CAD Yes Hypertension Yes Hyperlipidemia No Cancer Yes TB No Social Hx: Smoking HX Tobacco No Type N/A Packs/day N/A Are you/the child exposed to second-hand smoke: No Alcohol Alcohol: No Hx of Drug Use Drug Use? No Review of systems: Constitutional No: no symptoms reported. Respiratory No: no symptoms reported. Cardiovascular chest pain, palpitations Gastrointestinal/Abdominal No no symptoms reported Genitourinary No: no symptoms reported. Musculoskeletal No: no symptoms reported. Neurological No: no symptoms reported. Exam: Admission Vital Signs: 1ST Vital Signs Result Date Time Pulse Ox 98 02/10 1403 B/P 156/92 02/10 1403 Temp 98.3 02/10 1403 Pulse 91 02/10 1403 Resp 18 02/10 1403 O2 Delivery ROOM AIR 02/10 1750 Last Vital Signs: Vital Signs Result Date Time Pulse Ox 95 02/11 406 B/P 117/68 02/11 406 O2 Delivery ROOM AIR 02/11 406 Temp 98.1 02/11 406 Pulse 75 02/11 406 Resp 18 02/11 040 Exam General appearance: alert, awake, no acute distress Neck: no carotid bruit, no JVD Cardiovascular: regular rate & rhythm, no murmur Respiratory: clear to auscultation, good air movement ABD: soft, no tenderness Extremities: moves all, no peripheral edema Neuro: alert, intact, oriented Laboratory data: Laboratory Tests 02/11/17 0614: Sodium 140, Potassium 3.8, Chloride 104, Carbon Dioxide 27, BUN 25 H, Creatinine 1.3 H, Estimated Creat Clear 74, Estimated GFR (MDRD) 44 L, Glucose 88, Calcium 9.3, Total Bilirubin 0.7, AST 59 H, ALT 99 H, Alkaline Phosphatase 137 H, Total Protein 7.3, Albumin 3.5, Globulin 3.8 H, Albumin/Globulin Ratio 0.9 L 02/11/17 0105: Creatine Kinase 49, CK-MB (CK-2) Rel Index 1.0, CK and CKMB Interp < 0.5, Troponin I < 0.02 02/10/17 1857: Creatine Kinase 52, CK-MB (CK-2) Rel Index 1.0, CK and CKMB Interp < 0.5, Troponin I < 0.02 02/10/17 1620: Creatine Kinase 52, CK-MB (CK-2) Rel Index 1.0, CK and CKMB Interp < 0.5, Troponin I < 0.02 02/10/17 1355: B-Natriuretic Peptide 25 02/10/17 1355: Sodium 139, Potassium 3.2 L, Chloride 100, Carbon Dioxide 27, BUN 24 H, Creatinine 1.3 H, Estimated Creat Clear 71, Estimated GFR (MDRD) 44 L, Glucose 140 H, Calcium 9.7, Total Bilirubin 0.9, AST 62 H, ALT 105 H, Alkaline Phosphatase 155 H, Creatine Kinase 55, CK-MB (CK-2) Rel Index 0.9, CK and CKMB Interp < 0.5, Troponin I 0.07 H, Total Protein 8.3 H, Albumin 4.0, Globulin 4.3 H, Albumin/Globulin Ratio 0.9 L, D-Dimer < 100, WBC 5.9, RBC 4.66, Hgb 13.9, Hct 40.1, MCV 86.1, RDW 12.2, Plt Count 205, MPV 7.7, Gran % 47.8, Gran # 2.8, Lymphocytes % 42.2, Monocytes % 4.3, Eosinophils % 4.4, Basophils % 1.2, Lymphocytes # 2.5, Monocytes # 0.3, Eosinophils # 0.3, Basophils # 0.1, PUBS MCHC 34.7, MCH 29.8 Plan Assessment: 1. Chest pain with associated palpitations. Cardiac troponins normal 3. Electrocardiogram is sinus and unremarkable. Recommend Matrix Electronic Measuringiscan Myoview. This could be performed as an outpatient if unable to do this today. 2. Hypertension, controlled 3. History of DVTs, PE and CVAs for which she is currently on Eliquis therapy. 4. Hypokalemia, corrected 5. History mitral valve prolapse, recommend repeating echocardiogram. Plan: Discussed with Dr. Howard. See above. at 0977
[2017-02-11 08:30] VITALS: BP 115/65
--- NOTE | 2017-02-11 08:51 | ACUTE CARE PROGRESS NOTE (QUA) ---
See Addendum Progress Notes Subjective Date 02/11/17 Time 0730 Note No further CP during the night; breathing has improved; continues with the cough ; Is hungry and thirsty this AM. Always has some nausea at intervals. no vomiting today. Voiding some in small amounts. Objective Findings Laboratory Tests 02/11/17 0614: Sodium 140, Potassium 3.8, Chloride 104, Carbon Dioxide 27, BUN 25 H, Creatinine 1.3 H, Estimated Creat Clear 74, Estimated GFR (MDRD) 44 L, Glucose 88, Calcium 9.3, Total Bilirubin 0.7, AST 59 H, ALT 99 H, Alkaline Phosphatase 137 H, Total Protein 7.3, Albumin 3.5, Globulin 3.8 H, Albumin/Globulin Ratio 0.9 L 02/11/17 0105: Creatine Kinase 49, CK-MB (CK-2) Rel Index 1.0, CK and CKMB Interp < 0.5, Troponin I < 0.02 02/10/17 1857: Creatine Kinase 52, CK-MB (CK-2) Rel Index 1.0, CK and CKMB Interp < 0.5, Troponin I < 0.02 02/10/17 1620: Creatine Kinase 52, CK-MB (CK-2) Rel Index 1.0, CK and CKMB Interp < 0.5, Troponin I < 0.02 02/10/17 1355: B-Natriuretic Peptide 25 02/10/17 1355: Sodium 139, Potassium 3.2 L, Chloride 100, Carbon Dioxide 27, BUN 24 H, Creatinine 1.3 H, Estimated Creat Clear 71, Estimated GFR (MDRD) 44 L, Glucose 140 H, Calcium 9.7, Total Bilirubin 0.9, AST 62 H, ALT 105 H, Alkaline Phosphatase 155 H, Creatine Kinase 55, CK-MB (CK-2) Rel Index 0.9, CK and CKMB Interp < 0.5, Troponin I 0.07 H, Total Protein 8.3 H, Albumin 4.0, Globulin 4.3 H, Albumin/Globulin Ratio 0.9 L, D-Dimer < 100, WBC 5.9, RBC 4.66, Hgb 13.9, Hct 40.1, MCV 86.1, RDW 12.2, Plt Count 205, MPV 7.7, Gran % 47.8, Gran # 2.8, Lymphocytes % 42.2, Monocytes % 4.3, Eosinophils % 4.4, Basophils % 1.2, Lymphocytes # 2.5, Monocytes # 0.3, Eosinophils # 0.3, Basophils # 0.1, PUBS MCHC 34.7, MCH 29.8 Vital Signs Date Time Temp Pulse Resp B/P Pulse O2 O2 Flow FiO2 Ox Delivery Rate 02/11 0814 98.1 75 18 117/68 95 02/11 0406 98.1 75 18 117/68 95 ROOM AIR 02/10 2358 98.1 78 18 114/63 96 ROOM AIR 02/10 2051 97 ROOM AIR 02/10 2030 97.7 77 16 130/85 97 ROOM AIR 02/10 1940 98.1 78 18 114/63 96 02/10 1807 72 02/10 1807 98.5 72 20 148/86 02/10 1807 96 ROOM AIR 02/10 1750 98.5 72 20 148/86 96 ROOM AIR 02/10 1656 76 18 135/56 98 02/10 1613 18 02/10 1556 76 18 135/83 98 02/10 1403 98.3 91 18 156/92 98 Current Medications Pantoprazole Sodium 40 MG QHS PO Hydroxyzine Pamoate 25 MG Q8HP PRN PO Acetaminophen 975 MG ONCE ONE PO (DC) Acetaminophen 0 .STK-MED ONE PO (DC) Hydroxyzine Pamoate 0 .STK-MED ONE PO (DC) Potassium Chloride 20 MEQ BID PO Quetiapine Fumarate 200 MG QHS PO Verapamil HCl 120 MG BID PO Enoxaparin Sodium 90 MG ONCE ONE SC (DC) Sodium Chloride 1,000 ML .Q25H IV Benzonatate 100 MG TIDP PRN PO Pantoprazole Sodium 40 MG DAILY PO (DC) Sodium Chloride 1,000 ML .Q1H1M IV (DC) Sodium Chloride 10 ML PRN PRN IV Sodium Chloride 1,000 ML .STK-MED ONE IV (DC) Nitroglycerin 0.4 MG [id number] PRN SL Potassium Chloride 40 MEQ ONCE ONE PO (DC) Nitroglycerin 0 .STK-MED ONE SL (DC) Potassium Chloride 0 .STK-MED ONE PO (DC) Aspirin 0 .STK-MED ONE .ROUTE (DC) Aspirin 324 MG ONCE ONE PO (DC) Sodium Chloride 10 ML PRN PRN IV 02/10 1500 02/10 2300 02/11 0700 Intake Total 103 Output Total Balance 103 Intake, IV 83 Intake, Tube 20 Irrigant Patient 187 lb 196 lb Weight Last VS-Temp:98.1 B/P:117/68 Pulse:75 Resp:18 SaO2:95 ROOM AIR Last weight lbs:196 oz:6 K.075 Method:Bed Scales Exam General appearance: alert, no acute distress Cardiovascular: regular rate & rhythm (monitor showing NSR) Respiratory: clear to auscultation (bilat anterior and posterior) ABD: non-distended, soft, no tenderness, no guarding, bowel sounds present Extremities: no peripheral edema, no calf tenderness Neuro: alert, oriented, speech clear Assessment/Plan Problem List 1. Chest pain Status: Acute 2. Hypokalemia Status: Acute 3. Elevated LFTs 4. Renal insufficiency 5. History of stroke Status: Chronic 6. History of pulmonary embolism Status: Chronic 7. MVP (mitral valve prolapse) 8. Depression Patient condition Improving Plan: cardiology has seen the patient; she will have a stress test and ECHO; will continue to bridge with Lovenox until after stress test This inpt stay is expected to cross 2 MNs from start of care Yes (Veronica Kam APRN) Assessment/Plan Problem List 1. Chest pain Status: Acute 2. Hypokalemia Status: Acute 3. Elevated LFTs 4. Renal insufficiency 5. History of stroke Status: Chronic 6. History of pulmonary embolism Status: Chronic 7. MVP (mitral valve prolapse) 8. Depression Comments: Patient seen and agree with above note. (Flakito San MD) at 0850 at 0904
[2017-02-11] MEDS ORDERED: GABAPENTIN100 MG PO (10:36)
[2017-02-11 12:30] VITALS: BP 118/81
--- NOTE | 2017-02-11 15:11 | RADIOLOGY REPORT PS360 ---
CARDIOLITE SPECT MYOCARDIAL PERFUSION SCAN, REST AND STRESS: EXERCISE STRESS [facility] REVIEW QGS EF AND WALL MOTION EVALUATION: QPS - PERFUSION EVALUATION HISTORY: HYPERLIPIDEMIA, C.P. DOSE: 10.48 mCi technetium 99m mibi intravenously at rest followed by 31.5 mCi technetium 99m mibi following the intravenous ministration of 0.4 mg of Lexiscan. Resting blood pressure is 126/70. Stress blood pressure 134/75. FINDINGS: Ejection fraction is calculated to be 76. Stress images reveal decreased activity in the anterior wall while rest images reveal no significant change. IMPRESSION: This most likely represents breast attenuation although clinical correlation is advised. Anterior wall has normal function with hyperdynamic ejection fraction.
--- NOTE | 2017-02-11 15:11 | RADIOLOGY REPORT PS360 ---
CARDIOLITE SPECT MYOCARDIAL PERFUSION SCAN, REST AND STRESS: EXERCISE STRESS [facility] REVIEW QGS EF AND WALL MOTION EVALUATION: QPS - PERFUSION EVALUATION HISTORY: HYPERLIPIDEMIA, C.P. DOSE: 10.48 mCi technetium 99m mibi intravenously at rest followed by 31.5 mCi technetium 99m mibi following the intravenous ministration of 0.4 mg of Lexiscan. Resting blood pressure is 126/70. Stress blood pressure 134/75. FINDINGS: Ejection fraction is calculated to be 76. Stress images reveal decreased activity in the anterior wall while rest images reveal no significant change. IMPRESSION: This most likely represents breast attenuation although clinical correlation is advised. Anterior wall has normal function with hyperdynamic ejection fraction.
[2017-02-11 15:50] VITALS: BP 149/68
[2017-02-11 17:57] VITALS: BP 149/68
--- NOTE | 2017-02-11 20:26 | RADIOLOGY REPORT PS360 ---
PROCEDURE: 2-D M-mode and color Doppler study INDICATIONS FOR THE TEST: Chest pain X COPD Heart Murmur Tobacco Smoking Palpitations Fatigue Syncope Edema HypertensionXDiabetes Mellitus Rheumatic Fever SOB GORDON Obesity Hyperlipidemia Family History HD Additional History MVP BREAST IMPLANTS PATIENT INFORMATION HEIGHT: 65 WEIGHT:196 GENDER: Female B/P:117/68 2-D/M-MODE INTERPRETATION: 2-D MEASUREMENTS OBSERVED VALUES IN CMS Right Ventricular Dimension (RVDd) 2.0 Interventricular Septum (Thickness)(IVsd) 1.2 Left Ventricular Internal Dimensions(LVIDd) 5.1 Left Ventricular Posterior Wall (Thickness)(LVPWd) .8 Aortic Root 3.0 Aortic Cusp Separation 2.1 Left Atrial Dimensions (LAD) 3.9 2D 1. Left atrium is upper limit of the normal size, left ventricle is normal size, there is no concentric left ventricular hypertrophy, visually estimated ejection fraction of 55% with no obvious regional wall motion abnormality. 2. The right atrium and right ventricle are normal size and contractility. 3. The aortic valve is minimally thickened and fibrosed, morphology of the valve is not well visualized. 4. The mitral valve leaflets of myxomatous, there is mild prolapse of the anterior mitral leaflet. 5. The tricuspid valve is grossly normal. 6. The pulmonic valve is poorly visualized. 7. No significant pericardial effusion noted. DOPPLER INTERROGATION: Doppler interrogation of the aortic, mitral and tricuspid valvular presence of mild mitral and tricuspid regurgitation, tricuspid and enteric velocity insufficient for calculation of the right ventricular systolic pressure, mild aortic insufficiency is also seen. Diastolic parameters are inconclusive. CONCLUSION: 1. Normal left ventricular size, preserved left ventricular systolic function, visually estimated ejection fraction of 55% with no obvious regional wall motion abnormality, diastolic parameters are inconclusive. 2. Mild aortic, mild mitral and tricuspid regurgitation. The morphology of the aortic valve is not well visualized. 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 3. No significant pericardial effusion noted.
== END 2017-02-11 18:00 | disposition home or self-care (01) ==
LOC: ER 14:01 → 2ND 16:24 → ER 16:24 → 2ND 16:33
PROVIDERS: Emergency Medicine; Family Medicine
DX: R07.9 Chest pain, unspecified (principal); Z86.718 Personal history of other venous thrombosis and embolism; Z86.711 Personal history of pulmonary embolism; J44.9 Chronic obstructive pulmonary disease, unspecified; Z86.73 Personal history of transient ischemic attack (TIA), and cerebral infarction without residual deficits; E78.5 Hyperlipidemia, unspecified; H54.62 Unqualified visual loss, left eye, normal vision right eye; E87.6 Hypokalemia; N28.9 Disorder of kidney and ureter, unspecified; R79.89 Other specified abnormal findings of blood chemistry; H81.09 Meniere's disease, unspecified ear; I12.9 Hypertensive chronic kidney disease with stage 1 through stage 4 chronic kidney disease, or unspecified chronic kidney disease; N18.2 Chronic kidney disease, stage 2 (mild); I34.1 Nonrheumatic mitral (valve) prolapse; F32.9 Major depressive disorder, single episode, unspecified; R11.0 Nausea; Z83.3 Family history of diabetes mellitus; Z80.9 Family history of malignant neoplasm, unspecified; Z79.01 Long term (current) use of anticoagulants; Z87.11 Personal history of peptic ulcer disease; Z87.19 Personal history of other diseases of the digestive system; Z79.899 Other long term (current) drug therapy; Z88.5 Allergy status to narcotic agent; Z88.8 Allergy status to other drugs, medicaments and biological substances; Z88.1 Allergy status to other antibiotic agents; Z91.040 Latex allergy status; Z82.49 Family history of ischemic heart disease and other diseases of the circulatory system
CPT/HCPCS: A9502; G0378; J2785

== ENCOUNTER 2017-02-13 13:57 | Emergency (ER) | payer MEDICAID ==
[~2017-02-13] VITALS: Ht 165.1 cm; Wt 88.5 kg
[~2017-02-13 13:57] MED LIST changes: +GABAPENTIN100 MG PO; +PROTONIX 40MG T40 MG PO; +VISTARIL25 MG PO
--- OUTSIDE RECORDS SUMMARY | 2017-02-13 14:11 | External Medical Summary Rpt | CCD ---
Author Author , VINCENT Organization VINCENT Address Unknown Phone [email or web address] Care Team Providers Care Sample Processor Name Role Phone [facility], Unavailable Unavailable [facility] Unavailable Unavailable CLINIC, [facility] R[facility], RAY Unavailable Unavailable [facility] Unavailable Unavailable [facility], [facility] PHYSICIAN Unavailable Unavailable PRACTICE L, [facility] LUIS SMITH Unavailable Unavailable [facility] Unavailable [facility]available [facility], [facility], Unavailable Unavailable [facility], Unavailable Unavailable [facility] Unavailable [facility]available [facility], [facility], [facility]available Unavailable [facility] Unavailable Unavailable HOSPITAL, [facility], Unavailable Unavailable [facility] Unavailable Unavailable INC, [facility] Unavailable Unavailable HOSPITAL, [facility] Unavailable Unavailable HOSPITAL P, [facility] Unavailable Unavailable GROUP, [facility] [place] [place] Unavailable Unavailable [facility] Unavailable Unavailable GROUP PS, [facility] Unavailable Unavailable [facility], [facility] Unavailable Unavailable MEDICAL G, [facility] Un[facility], [facility] Un[facility], [facility] Unavailable Unavailable HOLDINGS, [facility], Unavailable Unavailable [facility] & Unavailable Unavailable [facility], [facility]available [facility]available [facility] Unavailable Unavailable SERVICES, [facility]available [facility]available [facility] Unavailable Unavailable MEDICAL, [facility] Unavailable Unavailable PSC, [facility], [facility] Unavailable Unavailable LABS, LLC CHINO MOLINA MD Unavailable Unavailable CONSULTING SRV, CHINO MOLINA MD CONSULTING SRV [facility], Unavailable Unavailable PLLC, [facility], [facility] PATHOLOGY & CYTOLOGY Unavailable Unavailable LAB, PATHOLOGY & CYTOLOGY LAB ANDREZ SPENCER Unavailable Unavailable [id number], Unavailable Unavailable [id number] [place] Unavailable Unavailable [facility], [place] [facility], Unavailable Unavailable [facility] Unavailable Unavailable [facility]ERGENCY PH[facility], [facility] Unavailable Unavailable EMERGENCY PH[facility]SI, [facility], Unavailable Unavailable [facility] Unavailable Unavailable HOSPITALS, [facility], Unavailable [facility]available [facility] Unavailable [facility], [facility] Unavailable Unavailable PHYSICIANS, [facility] PHYSICIANS [facility] Unavailable Unavailable #[id number], [facility] Purpose Continuity of Care Document - 03-27-2009 through 2016 Problems Code Diagnosis DOS Provider Status R05 COUGH 12-30-2016 [place] PHYSICIAN PRACTICE L I10 ESSENTIAL 12-24-2016 [facility] P N J209 ACUTE 12-24-2016 [facility] BRONCHITIS PHYSICIANS, UNSPECIFIED [facility] R0602 SHORTNESS 12-24-2016 [facility] OF BREATH PHYSICIANS, [facility] R071 CHEST PAIN 12-24-2016 [place] [facility] R0781 PLEURODYNIA 12-24-2016 [facility] R091 PLEURISY 12-24-2016 [facility], [facility] Z881 ALLERGY 12-24-2016 [place] STATUS TO [facility] ANTIBIOTIC AGENTS STATUS Z886 ALLERGY 12-24-2016 [place] STATUS TO [facility] P AGENT STATUS D6869 OTHER 12-19-2016 [facility] THROMBOPHIL [facility] [place] PHYSICIANS E876 HYPOKALEMIA 12-19-2016 [facility] PHYSICIANS I639 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 [facility] INFARCTION [facility] UNSPECIFIED PHYSICIANS M069 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 [facility] ARTHRITIS [facility] UNSPECIFIED PHYSICIANS Z09 ENC F/U 12-19-2016 [facility] EXAM AFTR HEALTHCARE CMPL TX OT HOSPITALS THAN [facility] NEOPLSM [id number] PERSONAL 12-19-2016 HISTORY OT HEALTHCARE VENOUS HOSPITALS THROMBOSIS& EMBOLISM P81524 SPONDYLOSIS 10-21-2016 W/O HEALTHCARE MYELOPATH/R HOSPITALS ADICULOPATH Y CERV RGN M791 MYALGIA 10-21-2016 HEALTHCARE HOSPITALS M0579 RA 10-09-2016 [place] [facility] W/RHEUMATOI SERV D FCT MX FOUNDATION SITE W/O ORGAN/SYS INVLV M797 FIBROMYALGI 10-09-2016 [facility] A [facility] R23129 OTHER LONG 10-09-2016 [place] [facility] TERM SERV CURRENT FOUNDATION DRUG THERAPY R51 HEADACHE 10-04-2016 [facility] D6859 OTHER 09-09-2016 [facility] PRIMARY OF [place] THROMBOPHIL PHYSICIANS [place] R635 ABNORMAL 09-09-2016 [facility] WEIGHT GAIN OF [place] PHYSICIANS Z8673 PERSONAL HX 09-09-2016 [facility] TIA & OF [place] CEREB PHYSICIANS INFARCT NO RESID DEFICIT J0190 ACUTE 08-27-2016 [facility] SINUSITIS PHYSICIAN UNSPECIFIED PRACTICE L 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 08-14-2016 CURRENT USE [facility]ALTHCARE OF HOSPITALS ANTICOAGULA NTS P87943 PERSONAL 08-14-2016 HISTORY OF HEALTHCARE PULMONARY HOSPITALS EMBOLISM E237 DISORDER OF 08-12-2016 [facility] PITUITARY SERV GLAND FOUNDATION UNSPECIFIED B39527 CHRONIC 08-12-2016 [facility] THROMB SERV UNS DEEP FOUNDATION VEINS UNS LOW EXT M059 RA WITH 08-12-2016 [place] [facility] RHEUMATOID SERV FACTOR FOUNDATION UNSPECIFIED E039 HYPOTHYROID 07-30-2016 LAB [facility] ISM [facility]LL UNSPECIFIED HOLDINGS H8113 BENIGN 07-24-2016 TIFFANIE PAROXYSMAL PHYSICIAN VERTIGO PRACTICE L BILATERAL F32.9 MAJOR 07-15-2016 DEPRESSIVE DISORDER, SINGLE EPISODE, UNSPECIFIED I10 ESSENTIAL 07-15-2016 (PRIMARY) HYPERTENSIO N R10.32 LEFT LOWER 07-15-2016 [facility] PAIN Z79.01 RESIDENTIAL 07-15-2016 (CURRENT) USE OF ANTICOAGULA NTS Z79.899 [...] Z98.890 OTHER 07-15-2016 SPECIFIED POSTPROCEDU RAL STATES R1031 RIGHT LOWER 07-10-2016 [facility] [place] [facility] PAIN R1032 LEFT LOWER 07-10-2016 [facility] N EMERGENCY PAIN PHYS R110 NAUSEA 07-10-2016 [facility] [place] [facility] E07.9 DISORDER OF 06-27-2016 THYROID, UNSPECIFIED Q43.0 MECKEL'S 06-27-2016 DIVERT[facility] M (DISPLACED) (HYPERTROPH IC) K21.9 GASTRO-ESOP 06-27-2016 [facility] REFLUX DISEASE WITHOUT ESOPHAGITIS R10.30 LOWER 06-27-2016 ABDOMINAL PAIN, UNSPECIFIED G8918 OTHER ACUTE 06-26-2016 [facility], POSTPROCEDU PLLC RAL PAIN R1012 LEFT UPPER 06-26-2016 [facility] PAIN INC R1084 GENERALIZED 06-26-2016 [place] [facility] PAIN IMAGING ASS R109 UNSPECIFIED 06-26-2016 [facility] ABDOMINAL PHYSICIANS, PAIN PLLC D121 BENIGN 06-25-2016 [place] NEOPLASM OF PHYSICIAN APPENDIX PRACTICE L E079 DISORDER OF 06-25-2016 [place] THYROID COMM[facility]ITY UNSPECIFIED HOSPITAL K219 GASTRO-ESOP 06-25-2016 [place] H REFLUX COMMUNITY DISEASE HOSPITAL WITHOUT ESOPHAGITIS K3580 UNSPECIFIED 06-25-2016 [place] ACUTE ANESTHESIA APPENDICITI GROUP PS S Q430 MECKELS 06-25-2016 [facility] DIVERTICULU PHYSICIAN M DISPLACED PRACTICE L HYPERTROPHI C R1030 LOWER 06-25-2016 [place] ABDOMINAL COMMUNITY PAIN HOSPITAL UNSPECIFIED E236 OTHER 06-13-2016 [facility] PITUITARY GLAND E669 OBESITY 06-13-2016 [place] [facility] UNSPECIFIED SERV FOUNDATION R5383 OTHER 06-13-2016 [facility] HOSPITALS K529 NONINFECTIV 06-05-2016 [facility]ino DIGESTIVE GASTROENTER CARE CENTER ITIS & COLITIS UNS K582 MIXED 06-05-2016 [facility] IRRITABLE DIGESTIVE BOWEL CARE CENTER SYNDROME N816 RECTOCELE 06-05-2016 [facility]IGESTIVE [facility]ARE CENTER R112 NAUSEA WITH 05-16-2016 [facility] [place] [facility] RAD[facility] UNSPECIFIED L66514 ACUTE EMBO 04-26-2016 [facility]ROM[facility] DEEP VEINS HOSPITALS UNS LOW EXTREM K2980 DUODENITIS 04-19-2016 [facility] WITHOUT DIGESTIVE BLEEDING CARE CENTER K635 POLYP OF 04-19-2016 [place] COLON ANESTHESIA GROUP PS K648 OTHER 04-19-2016 [facility] HEMORRHOIDS DIGESTIVE CARE CENTER Z8719 PERSONAL 04-19-2016 [facility] HISTORY DIGESTIVE OTHER CARE CENTER DISEASES DIGESTIVE SYSTEM Z7902 DISPOSAL OPERATOR 04-15-2016 [facility]R USE COMM[facility]ITY ANTITHROMBO HOSPITAL TICS/ANTIPL ATELETS Z888 ALLERGY 04-15-2016 [facility] STATUS OTH COMMUNITY RX [facility] HOSPITAL BIOLOG SUBSTAN STS T93453 LATEX 04-15-2016 [facility] ALLERGY [facility] N200 CALCULUS OF 04-13-2016 [facility] M0600 RA WITHOUT 02-29-2016 [facility] RHEUMATOID SERV FACTOR FOUNDATION UNSPECIFIED SITE D352 BENIGN 02-08-2016 [facility] NEOPLASM OF PHYSICIAN PITUITARY PRACTICE L GLAND R2689 OTHER 02-08-2016 [place] ABNORMALITI PHYSICIAN ES OF GAIT PRACTICE L AND MOBILITY G08 INTRACRANL 02-06-2016 [facility] & SERV INTRASPINL FOUNDATION PHLEBIT & THROMBOPHLE BIT I340 NONRHEUMATI 02-06-2016 [facility] C MITRAL SERV VALVE FOUNDATION INSUFFICIEN CY I351 NONRHEUMATI 02-06-2016 [facility] C AORTIC SERV VALVE FOUNDATION INSUFFICIEN CY I358 OTHER 02-06-2016 [place] [facility] NONRHEUMATI SERV C AORTIC FOUNDATION VALVE DISORDERS I517 CARDIOMEGAL 02-06-2016 [place] [facility] Y SERV [facility] N179 ACUTE 02-06-2016 [facility] KIDNEY SERV FAILURE FOUNDATION UNSPECIFIED N189 CHRONIC 02-06-2016 [facility] KIDNEY SERV DISEASE FOUNDATION UNSPECIFIED R791 ABNORMAL 02-06-2016 [facility] COAGULATION SERV PROFILE FOUNDATION D689 COAGULATION 02-05-2016 [facility] DEFECT SERV UNSPECIFIED FOUNDATION P21229 MIGRAINE 02-05-2016 [facility] W/AURA NOT SERV INTRACT W/O FOUNDATION STAT MIGRAINOSUS H538 OTHER 02-05-2016 [place] VISUAL [facility]ICAL DISTURBANCE IMAGING ASS S H5442 BLINDNESS 02-05-2016 [place] [facility] LEFT EYE SERV NORMAL FOUNDATION VISION RIGHT EYE H07151 CEREBRAL 02-05-2016 [facility] INFARCT D/T PHYSICIANS, EMBOLISM PLLC LT POST CERBRL ART R9402 ABNORMAL 02-05-2016 [place] [facility] BRAIN SCAN SERV FOUNDATION H6983 OTHER SPEC 01-25-2016 [facility] DISORDERS PHYSICIAN EUSTACHIAN PRACTICE L TUBE BILAT I889 NONSPECIFIC 01-25-2016 [facility] PHYSICIAN LYMPHADENIT PRACTICE L IS UNSPECIFIED H6501 ACUTE 01-20-2016 [facility] SEROUS PHYSICIANS, OTITIS PLLC MEDIA RIGHT EAR L049 ACUTE 01-20-2016 [facility] LYMPHADENIT PHYSICIANS, IS PLLC UNSPECIFIED M5481 OCCIPITAL 01-17-2016 [facility] X00892 PAIN IN 12-07-2015 [place] RIGHT LEG MEDICAL IMAGING ASS H9313 TINNITUS 12-06-2015 [facility] BILATERAL PHYSICIAN PRACTICE L H938X1 OTHER 12-06-2015 [facility] SPECIFIED PHYSICIAN DISORDERS PRACTICE L OF RIGHT EAR M2550 PAIN IN 11-21-2015 [facility] UNSPECIFIED HOSPITAL JOINT Z0000 ENCOUNTER 11-21-2015 [facility] MED EXAM W/O ABNORMAL FIND X33765 PAIN IN 11-16-2015 [facility] [place] LEFT FOOT RADIOLOGY Z5181 ENCOUNTER 09-14-2015 [facility] DRUG LEVEL MONITORING I2699 OTH 09-13-2015 [facility] PULMONARY MEM [facility]OSP EMBOLISM INC W/O ACUTE COR PULMONALE J988 OTHER 08-14-2015 [facility] SPECIFIED PHYSICIAN RESPIRATORY PRACTICE L DISORDERS L259 UNSPECIFIED 08-04-2015 [facility] CONTACT PHYSICIAN DERMATITIS PRACTICE L UNSPECIFIED CAUSE K625 HEMORRHAGE 2015 [facility] OF ANUS AND PHYSICIAN RECTUM PRACTICE L R7989 OTHER SPEC 07-11-2015 [facility] ABNORMAL PHYSICIANS, FINDINGS PLLC BLOOD CHEMISTRY H69802 MIGRAINE 07-10-2015 [facility] W/O AURA REGIONAL NOT INTRACT MEDICAL W/O STAT MIGRAIN G930 CEREBRAL 07-10-2015 [facility] [facility] ASSOC[facility]AT H8120 VESTIBULAR 07-10-2015 [facility] NEURONITIS REGIONAL UNSPECIFIED MEDICAL EAR R42 DIZZINESS 07-10-2015 [facility] AND REGIONAL GIDDINESS MEDICAL R6889 OTHER 07-10-2015 [facility] GENERAL REGIONAL SYMPTOMS MEDICAL AND SIGNS R899 UNS ABNORM 06-15-2015 [facility] SPEC FROM OTH ORGN SYS & TISS H903 SENSORINEUR 06-14-2015 [facility] AL HEARING PHYSICIAN LOSS PRACTICE L BILATERAL J0100 ACUTE 05-23-2015 [facility] MAXILLARY PHYSICIAN SINUSITIS PRACTICE L UNSPECIFIED W27715 KERATOCONJU 05-19-2015 [facility] A[facility]ES NCTIVITIS SICCA NOT SJOGREN BILATERAL H109 UNSPECIFIED 05-10-2015 [facility] TIS M461 SACROILIITI 05-01-2015 [facility] S NOT MEM HOSP ELSEWHERE INC CLASSIFIED M545 LOW BACK 05-01-2015 [facility] PAIN MEM HOSP INC H524 PRESBYOPIA 04-17-2015 ANDRE[facility] KWAN M5442 LUMBAGO 04-13-2015 [facility] LANDRUM WITH SCIATICA LEFT SIDE K5900 CONSTIPATIO 04-06-2015 [facility] N PHYSICIAN UNSPECIFIED PRACTICE L R0789 OTHER CHEST 03-18-2015 [facility] PAIN PHYSICIANS, [facility] R079 CHEST PAIN 03-18-2015 [place] UNSPECIFIED MEDICAL IMAGING ASS R946 ABNORMAL 03-07-2015 [facility] RESULTS OF PHYSICIAN THYROID PRACTICE L FUNCTION STUDIES Z202 CONTACT 03-07-2015 [facility] WITH PHYSICIAN EXPOSURE PRACTICE L INFECT SEXUAL MODE TRANSMS I2609 OTHER 02-03-2015 [place] [facility] EMBOLISM [facility]OSPITAL W/ACUTE COR PULMONALE A048 OTHER 01-23-2015 [facility] SPECIFIED PHYSICIAN BACTERIAL PRACTICE L INTESTINAL INFECTIONS R1013 EPIGASTRIC 01-19-2015 [facility] MEDICAL G R001 BRADYCARDIA 01-18-2015 [facility] UNSPECIFIED CLINIC PSC R072 PRECORDIAL 01-18-2015 [facility] [place] PAIN RADIOLOGY 7804 DIZZINESS 12-19-2014 [facility] AND [facility] GIDDINESS INC V571 OTHER 12-19-2014 [facility] PHYSICAL [facility] THERAPY INC 68391 UNSPECIFIED 12-14-2014 [facility] MENIERES PHYSICIAN DISEASE PRACTICE L 72704 VESTIBULAR 12-14-2014 [facility] NEURONITIS PHYSICIAN PRACTICE L 56970 UNSPECIFIED 12-14-2014 [facility] TINNITUS PHYSICIAN PRACTICE L 33598 SENSORINEUR 12-14-2014 [facility] HEARING PHYSICIAN LOSS PRACTICE L BILATERAL 470 DEVIATED 12-14-2014 [place] NASAL PHYSICIAN SEPTUM PRACTICE L 4779 ALLERGIC 12-14-2014 [facility] RHINITIS PHYSICIAN CAUSE PRACTICE L UNSPECIFIED 46657 OTH 12-14-2014 [facility] SYMPTOMS PHYSICIAN INVLV PRACTICE L NERV&MUSCUL OSKELETAL SYSTEMS 2449 UNSPECIFIED 12-12-2014 [facility] HYPOTHYROID HOLDINGS ISM 76549 DIARRHEA 12-12-2014 [facility] HOLDINGS 35775 MIGRAINE 11-29-2014 [facility] W/AURA W/O NEUROLOGY INTRACT W/O STATUS MIGRNOSUS 7840 HEADACHE 11-29-2014 [facility] 4019 UNSPECIFIED 10-31-2014 [facility] ESSENTIAL JARRELL HYPERTENSIO HOLDINGS N 7831 ABNORMAL 10-31-2014 [facility] WEIGHT GAIN JARRELL HOLDINGS 4610 ACUTE 09-30-2014 [place] MAXILLARY MEDICAL SINUSITIS IMAGING ASS 3899 UNSPECIFIED 09-13-2014 [facility] HEARING PHYSICIAN LOSS PRACTICE L 49182 OTHER 09-13-2014 [place] DISEASES OF PHYSICIAN NASAL PRACTICE L CAVITY AND SINUSES 1121 CANDIDIASIS 08-04-2014 [facility] AND [facility] 2562 POSTABLATIV 08-04-2014 [facility] E OVARIAN JARRELL FAILURE HOLDINGS 87884 UNSPECIFIED 08-04-2014 [facility] CONSTIPATIO HOLDINGS N 6101 DIFFUSE 08-04-2014 [facility] CYSTIC JARRELL MASTOPATHY HOLDINGS V7231 ROUTINE 08-04-2014 [facility] AL EXAMINATION V7612 OTHER 08-04-2014 [facility] [place] SCREENING RADIOLOGY MAMMOGRAM 8460 SPRAIN AND 07-29-2014 [facility] STRAIN OF PHYSICIAN LUMBOSACRAL PRACTICE L 4550 INTERNAL 07-20-2014 [facility] HEMORRHOIDS HEALTH WITHOUT MEDICAL G MENTION COMP 5693 HEMORRHAGE 07-20-2014 [facility] OF [facility] AND ANUS MEDICAL G 81269 NAUSEA 07-05-2014 [place] ALONE PHYSICIAN PRACTICE L 5758 OTHER 05-29-2014 [place] SPECIFIED [facility] P GALLBLADDER 66870 HEMATURIA 05-29-2014 [place] UNSPECIFIED [facility] P 10181 ABDOMINAL 05-29-2014 [place] PAIN RIGHT [facility] P [facility] 5990 URINARY 05-25-2014 [facility] TRACT PHYSICIAN INFECTION PRACTICE L SITE NOT SPECIFIED 89419 MICROSCOPIC 05-25-2014 [facility] HEMATURIA PHYSICIAN PRACTICE L 80226 INSOMNIA 05-25-2014 [place] UNSPECIFIED PHYSICIAN PRACTICE L 7881 DYSURIA 05-25-2014 [place] PHYSICIAN PRACTICE L 4871 INFLUENZA 03-10-2014 [facility] WITH OTHER MEDICAL RESPIRATORY CLINIC MANIFESTATI ONS 47243 FEVER 03-10-2014 [facility] PRESENTING MEDICAL CONDITIONS CLINIC CLASSIFIED ELSEWHERE 7862 COUGH 03-10-2014 [facility] MEDICAL CLINIC 2382 NEOPLASM OF 02-23-2014 [facility] UNCERTAIN MEDICAL BEHAVIOR OF CLINIC SKIN 82477 UNSPECIFIED 02-16-2014 [facility] VAGINITIS MEDICAL AND CLINIC VULVOVAGINI TIS 6822 CELLULITIS 02-01-2014 [facility] AND ABSCESS N EMERGENCY OF TRUNK PHYSI 6823 CELLULITIS 02-01-2014 [facility]ESS N EMERGENCY OF UPPER PHYSI ARM AND FOREARM 6826 CELLULITIS 02-01-2014 [facility] AB[facility]ESS N EMERGENCY OF LEG PHYSI EXCEPT FOOT 9953 ALLERGY 02-01-2014 [facility] UNSPECIFIED N EMERGENCY NOT PHYSI ELSEWHERE CLASSIFIED V143 PERSONAL 02-01-2014 [facility] HISTORY COMMUNITY ALLERGY [facility] ANTI-INFECT RIK AGT V146 PERSONAL 02-01-2014 [place] HISTORY OF COMMUNITY ALLERGY TO HOSPITAL ANALGESIC AGENT V5869 LONG-TERM 02-01-2014 [facility] USE OF HOSPITAL OTHER MEDICATIONS 34691 GENERALIZED 10-12-2013 [facility] ANXIETY MEDICAL DISORDER CLINIC 7823 EDEMA 09-21-2013 [facility] MEDICAL CLINIC 4011 ESSENTIAL 09-10-2013 [facility] HYPERTENSIO MEDICAL N, BENIGN CLINIC 4660 ACUTE 07-07-2013 [facility] BRONCHITIS MEDICAL CLINIC 79954 WHEEZING 07-07-2013 [facility] MEDICAL CLINIC 73526 ACUTE 07-02-2013 [facility] LARYNGITIS, N EMERGENCY WITHOUT PHYSI MENTION OF OBSTRUCTIO 7841 THROAT PAIN 07-02-2013 [facility] N EMERGENCY PHYSI 3968 MULTIPLE 06-29-[address] [facility] [facility] PHYSICIAN OF [employer]. AND AORTIC VALVES 48142 HYPERSOMNIA 06-29-2013 CHINO MOLINA MD UNSPECIFIED CONSULTING SRV 3963 MITRAL 06-28-2013 [facility] INSUFF&AORT IC VALVE INSUFF 3970 DISEASES OF 06-28-2013 [facility] TRICUSPID [facility] VALVE 4299 UNSPECIFIED 06-28-2013 [facility] DISEASE 70686 OTHER 06-25-2013 [place] DYSPNEA AND [facility] RESPIRATORY ABNORMALITI ES V851 BODY MASS 06-25-2013 [place] INDEX [facility] ADULT 7197 DIFFICULTY 06-17-2013 [place] IN WALKING [facility] 7851 PALPITATION 06-17-2013 [facility] 7852 UNDIAGNOSED 06-17-2013 CHINO MOLINA CARDIAC MURMURS CONSULTING SRV 16393 SHORTNESS 06-17-2013 [place] OF BREATH [facility] 94289 PRECORDIAL 06-17-2013 CHINO MOLINA PAIN CONSULTING SRV 65680 OCCLUSION&S 06-16-2013 CHINO WELLS MD CAROTID ART CONSULTING W/O SRV MENTION INFARCT 2768 HYPOPOTASSE 06-09-2013 [facility] 89639 CHEST PAIN 06-09-2013 [facility] UNSPECIFIED N EMERGENCY PHYSI 02042 NAUSEA WITH 06-09-2013 [facility] VOMITING N EMERGENCY PHYSI V145 PERSONAL 06-09-2013 [facility] HISTORY OF COMMUNITY ALLERGY TO HOSPITAL NARCOTIC AGENT 85202 VENOUS 05-24-2013 [facility]ITAL[facility] Chitosan [facility] OCCLUSION OF RETINA 85116 MIGRAINE 03-09-2012 [place] [facility] W/[place] AURA SERV W/O INTRACT FOUNDATIO W/O STAT MIGRNOSUS 14911 UNSPECIFIED 03-09-2012 [place] [facility] RETINAL SERV VASCULAR FOUNDATIO OCCLUSION 74857 ARTERIAL 03-09-2012 [place] [facility] BRANCH SERV OCCLUSION FOUNDATION OF RETINA 3689 UNSPECIFIED 03-09-2012 [place] [facility] VISUAL SERV DISTURBANCE FOUNDATIO 88548 UNSPECIFIED 03-09-2012 [place] [facility] PERIPHERAL SERV VERTIGO FOUNDATIO 71878 UNSPECIFIED 03-09-2012 [facility] ARTERY HOSPI OCCLUSION W/INFARCT 4359 UNSPECIFIED 03-09-2012 [place] [facility] TRANSIENT SERV CEREBRAL FOUNDATIO ISCHEMIA 436 ACUTE BUT 03-09-2012 [place] [facility] ILL-DEFINED SERV FOUNDATIO CEREBROVASC ULAR DISEASE 77398 IMPAIRMENT 03-08-2012 MATTHE[facility] GONZALEZ LEVEL NOT HOSPITAL FURTHER SPECIFIED 25269 ONE EYE: 03-08-2012 JESSI MAY VISN EMERGENCY IMPAIR; OTH SERVICES EYE: VISN NOT SPEC 79552 UNSPECIFIED 03-08-2012 [facility] NEURITIS 7292 UNSPECIFIED 03-08-2012 JESS[facility]GIA EMERGENCY NEURITIS SERVICES AND RADICULITIS V4989 OTHER SPEC 02-10-2012 FAM[facility] CONDITIONS MEDICINE INFLUENCING ASSOC HEALTH FLEMIN STATUS V8523 BODY MASS 02-10-2012 FAMILY INDEX MEDICINE 27.0-27.9 ASSOC ADULT FLEMIN 5920 CALCULUS OF 02-07-2012 [facility] KIDNEY MEDICINE ASSOC FLEMIN 3674 PRESBYOPIA 06-28-2011 J[facility] GRE 22561 OTHER 06-14-2011 FAMILY CHRONIC MEDICINE ALLERGIC ASSOC CONJUNCTIVI FLEMIN TIS 88641 UNSPECIFIED 06-14-2011 FAMILY SLEEP MEDICINE DISTURBANCE ASSOC FLE[facility] V163 FAMILY 05-06-2011 [facility] RADIOLOGY MALIGNANT ASSOCIAT NEOPLASM OF BREAST 95842 ABDOMINAL 04-26-2011 [facility] UNSPECIFIED SITE 93106 UNS 04-23-2011 FAMILY GASTRITIS&G MEDICINE ASTRODUODIT ASSOC IS W/O FLEMIN MENTION HEMORR 98597 OTHER 04-23-2011 LABORATORY GENERAL & SYMPTOMS BIODIAGNOST ICS V700 ROUTINE 04-23-2011 LABORATORY GENERAL & MEDICAL BIODIAGNOST EXAM@HEALTH ICS CARE FACL 2169 BENIGN 04-09-2011 [facility] NEOPLASM OF DERMATOLOGY SKIN SITE UNSPECIFIED 52408 HEMANGIOMA 04-09-2011 [facility]ED OF SKIN AND DERMATOLOGY SUBCUTANEOU S TISSUE 51861 DYSCHROMIA, 04-09-2011 [facility] DERMATOLOGY UNSPECIFIED 45459 OTHER 03-21-2011 FAMILY DYSCHROMIA MEDICINE ASSOC FLEMIN 2112 BENIGN 03-07-2011 [facility]OP[facility] [place] [facility] JEJUNUM AND ILEUM 4240 MITRAL 03-07-2011 [facility] DISORDERS 56092 REFLUX 03-07-2011 [facility] ESOPHAGITIS [facility] 81687 ESOPHAGEAL 03-07-2011 [facility] GASTROENTER OLOG 17452 ACUTE 03-07-2011 [facility] WITHOUT GASTROENTER MENTION OF OLOG HEMORRHAGE 71681 OTHER 03-07-2011 [facility] DISORDER OF STOMACH AND DUODENUM 7220 DISPLCMT 02-08-2011 [facility] INTERVERT ASSOCIAT DISC WITHOUT MYELOPATHY 7230 SPINAL 02-08-2011 [facility] STENOSIS IN RADIOLOGY CERVICAL ASSOCIAT REGION 7231 CERVICALGIA 02-08-2011 [facility] 2859 UNSPECIFIED 04-03-2009 [facility] 514 PULMONARY 04-03-2009 [facility] HYPOSTASIS 6146 PELVIC 04-03-2009 PATHOLOGY & PERITONEAL CYTOLOGY ADHESIONS, LAB FEMALE 6200 FOLLICULAR 04-03-2009 PATHOLOGY & CYST OF CYTOLOGY [facility] 6202 OTHER AND 04-03-2009 PATHOLOGY & UNSPECIFIED CYTOLOGY OVARIAN LAB CYST 6250 DYSPAREUNIA 04-03-2009 [facility] 6253 DYSMENORRHE 04-03-2009 [facility] 10856 HYPOXEMIA 04-03-2009 [facility] V7284 UNSPECIFIED 03-27-2009 [facility] PRE-OPERATI VE EXAMINATION Medications Na ND Rx Da Fi Fi Am Da Di Ph RX Ph St me C No te ll ll ou ys ag ar # ys at rm s nt no ma ic us Or Da si cy ia de te s n re d CO 58 10 11 12 4 00 WA Ac DE 65 -0 -1 0. 00 L- ti IN 70 9- 0- 00 04 MA ve E- 50 20 20 0 53 RT 01 17 17 23 AI 6 91 PH FE AR N MA 10 CY -1 00 #5 91 MG /5 ML XE 00 09 10 60 30 00 AC Ac LJ 06 -2 -2 .0 00 CR ti AN 91 9- 0- 00 06 ED ve Z 00 20 20 88 O 5 10 17 17 91 HE MG 1 67 AL TH TA BL GR ET OU P IN C AZ 68 09 10 6. 5 00 WA Ac IT 18 -2 -2 00 00 L- ti HR 00 6- 0- 0 07 MA ve OM 16 20 20 51 RT YC 00 17 17 21 IN 6 11 PH AR 25 MA 0 CY MG #5 TA 91 BL ET BE 68 09 10 15 5 00 MT Ac NZ 38 -2 -2 .0 00 L- ti ON 20 6- 0- 00 07 MA ve AT 24 20 20 51 RT AT 70 17 17 21 E 1 12 PH 10 AR 0 MA MG CY CA #5 PS 91 UL E HY 00 09 10 10 3 00 MT Ac DR 40 -2 -2 .0 00 L- ti OC 60 6- 0- 00 02 MA ve OD 12 20 20 24 RT ON 30 17 17 20 -A 1 89 PH CE AR TA MA NJ CY NO PH #5 EN 91 5- 32 5 EL 00 09 10 60 30 00 MT Ac IQ 00 -1 -1 .0 00 L- ti UI 30 2- 3- 00 07 MA ve S 89 20 20 50 RT 5 42 17 17 87 MG 1 81 PH AR TA MA BL CY ET #5 91 TR 64 09 10 30 30 00 MT Ac IN 76 -1 -1 .0 00 L- ti TE 40 2- 3- 00 07 MA ve LL 75 20 20 50 RT IX 03 17 17 43 0 82 PH 20 AR MA MG CY TA #5 BL 91 ET TR 00 09 10 30 30 00 MT Ac IA 78 -1 -1 .0 00 L- ti MT 12 2- 3- 00 07 MA ve ER 07 20 20 49 RT EN 40 17 17 66 E- 1 33 PH HC AR TZ MA CY 37 .5 #5 -2 91 5 MG CP GA 65 09 10 30 30 00 MT Ac BA 16 -1 -1 .0 00 L- ti PE 20 3- 3- 00 04 MA ve NT 10 20 20 53 RT IN 15 17 17 10 0 18 PH 10 AR 0 MA MG CY CA #5 PS 91 UL E AT 68 09 10 30 30 00 MT Ac OR 64 -1 -1 .0 00 L- ti VA 50 2- 3- [address] 46 20 20 48 RT AT 05 17 17 75 IN 4 01 PH AR 40 MA CY MG #5 TA 91 BL ET QU 16 09 10 30 30 00 MT Ac ET 72 -1 -1 .0 00 L- ti IA 90 3- 3- 00 07 MA ve PI 14 20 20 50 RT NE 80 17 17 94 1 39 PH FU AR MA MA RA CY TE #5 20 91 0 MG TA B HY 68 09 10 30 [address] 64 -1 -0 .0 00 L- ti OC 50 0- 6- 00 07 MA ve HL 51 20 20 49 RT OR 05 17 17 78 OT 4 52 PH HI AR AZ MA ID CY E 25 #5 91 MG TA B PO 00 08 09 90 30 00 MT Ac TA 60 -3 -2 0. 00 L- ti SS 31 0- 9- 00 07 MA ve IU 54 20 20 0 50 RT M 35 17 17 67 CL 8 80 PH AR 20 MA % CY (4 0 #5 ME 91 Q/ 15 ML HY 68 08 09 30 [address] 64 -0 -0 .0 00 L- ti OC 50 8- 1- 00 07 MA ve HL 51 20 20 49 RT OR 05 17 17 78 OT 4 52 PH HI AR AZ MA ID CY E 25 #5 91 MG TA B XE 00 07 08 60 30 00 Ac LJ 06 -2 -1 .0 00 CR ti AN 91 1- 8- 00 06 ED ve Z 00 20 20 88 O 5 10 17 17 91 HE MG 1 67 AL TH TA BL GR ET OU P IN C EL 00 07 08 60 30 00 WA Ac IQ 00 -2 -1 .0 00 L- ti UI 30 1- 8- 00 07 MA ve S 89 20 20 48 RT 5 42 17 17 75 MG 1 32 PH AR TA MA BL CY ET #5 91 HY 68 07 08 30 [address] 64 -1 -0 .0 00 L- ti OC 50 0- 4- 00 07 MA ve HL 51 20 20 49 RT OR 05 17 17 78 OT 4 52 PH HI AR AZ MA ID CY E 25 #5 91 MG TA B GA 53 07 08 30 30 00 WA Ac BA 74 -1 -0 .0 00 L- ti PE 60 2- 4- 00 04 MA ve NT 10 20 20 53 RT IN 10 17 17 10 5 18 PH 10 AR 0 MA MG CY CA #5 PS 91 UL E KL 66 07 08 12 30 00 WA Ac OR 75 -0 -0 0. 00 L- ti -C 80 7- 4- 00 07 MA ve ON 19 20 20 0 49 RT 09 17 17 75 M2 2 33 PH 0 AR TA MA BL CY ET #5 91 TR 00 07 08 30 30 00 WA Ac IA 78 -0 -0 .0 00 L- ti MT 12 8- 4- 00 07 MA ve ER 07 20 20 49 RT EN 40 17 17 66 E- 1 33 PH HC AR TZ MA CY 37 .5 #5 -2 91 5 MG CP AT 68 07 08 30 30 00 WA Ac OR 64 -0 -0 .0 00 L- ti VA 50 8- 4- [address] 46 20 20 48 RT AT 05 17 17 75 IN 4 01 PH AR 40 MA CY MG #5 TA 91 BL ET QU 60 06 07 30 30 00 MT Ac ET 50 -3 -2 .0 00 L- ti IA 53 0- 8- 00 07 MA ve PI 13 20 20 49 RT NE 20 17 17 65 1 76 PH FU AR MA MA RA CY TE #5 50 91 MG TA B HU 00 06 07 2. 28 00 AC Ac NJ 07 -1 -2 00 00 CR ti RA 43 9- 1- 0 06 ED ve 79 20 20 71 O 40 90 17 17 62 HE 2 16 AL MG TH /0 .8 GR OU ML P IN SY C RI NG E DI 00 06 07 24 30 00 MT Ac CY 52 -1 -0 0. 00 L- ti CL 70 2- 7- 00 07 MA ve OM 58 20 20 0 49 RT IN 60 17 17 30 E 1 56 PH 10 AR MA MG CY CA #5 PS 91 UL E KL 66 06 07 60 30 00 MT Ac OR 75 -1 -0 .0 00 L- ti -C 80 2- 7- 00 07 MA ve ON 19 20 20 48 RT 09 17 17 75 M2 2 04 PH 0 AR TA MA BL CY ET #5 91 AT 68 06 07 30 30 00 MT Ac OR 64 -1 -0 .0 00 L- ti VA 50 2- 7- [address] 46 20 20 48 RT AT 05 17 17 75 IN 4 01 PH AR 40 MA CY MG #5 TA 91 BL ET TR 00 06 07 30 30 00 MT Ac IA 78 -1 -0 .0 00 L- ti MT 12 2- 7- 00 07 MA ve ER 07 20 20 48 RT EN 40 17 17 75 E- 1 00 PH HC AR TZ MA CY 37 .5 #5 -2 91 5 MG CP EL 00 06 07 60 30 00 MT Ac IQ 00 -1 -0 .0 00 L- ti UI 30 2- 7- 00 07 MA ve S 89 20 20 48 RT 5 42 17 17 75 MG 1 32 PH AR TA MA BL CY ET #5 91 AM 00 05 06 20 10 00 MT Ac OX 78 -3 -3 .0 00 L- ti -C 11 0- 0- 00 07 MA ve LA 85 20 20 49 RT V 22 17 17 06 87 0 04 PH 5- AR 12 MA 5 CY MG #5 TA 91 BL ET QU 16 06 06 30 30 00 MT Ac ET 72 -0 -3 .0 00 L- ti IA 90 4- 0- 00 07 MA ve PI 14 20 20 49 RT NE 60 17 17 14 1 27 PH FU AR MA MA RA CY TE #5 50 91 MG TA B IN 31 05 06 90 27 00 MT Ac DO 72 -2 -2 .0 00 L- ti ME 20 4- 3- 00 07 MA ve TH 54 20 20 48 RT AC 20 17 17 95 IN 1 88 PH AR 25 MA CY MG #5 CA 91 PS UL E HU 00 05 06 2. 28 00 Ac NJ 07 -2 -2 00 00 CR ti RA 43 4- 3- 0 06 ED ve 79 20 20 71 O 40 90 17 17 62 HE 2 16 AL MG TH /0 .8 GR OU ML P IN SY C RI NG E ES 68 05 06 30 30 00 MT Ac CI 64 -1 -0 .0 00 L- ti TA 50 1- 2- 00 07 MA ve LO 52 20 20 48 RT MT 05 17 17 74 AM 4 99 PH AR 20 MA CY MG #5 TA 91 BL ET HY 68 05 06 30 [address] 64 -1 -0 .0 00 L- ti OC 50 1- 2- 00 07 MA ve HL 51 20 20 48 RT OR 05 17 17 74 OT 4 98 PH HI AR AZ MA ID CY E 25 #5 91 MG TA B VE 23 05 06 60 30 00 MT Ac RA 15 -1 -0 .0 00 L- ti PA 50 1- 2- 00 07 MA ve NJ 02 20 20 48 RT L 70 17 17 75 12 1 03 PH 0 AR MG MA CY TA BL #5 ET 91 KL 66 05 06 60 30 00 MT Ac OR 75 -1 -0 .0 00 L- ti -C 80 1- 2- 00 07 MA ve ON 19 20 20 48 RT 09 17 17 75 M2 2 04 PH 0 AR TA MA BL CY ET #5 91 HY 00 05 06 60 [address] 78 -1 -0 .0 00 L- ti OX 11 1- 2- 00 07 MA ve YC 40 20 20 48 RT HL 79 17 17 75 OR 7 02 PH OQ AR UI MA NE CY 20 #5 0 91 MG TA B TR 00 05 06 30 30 00 MT Ac IA 78 -1 -0 .0 00 L- ti MT 12 1- 2- 00 07 MA ve ER 07 20 20 48 RT EN 41 17 17 75 E- 0 00 PH HC AR TZ MA CY 37 .5 #5 -2 91 5 MG CP EL 00 05 06 60 30 00 WA Ac IQ 00 -1 -0 .0 00 L- ti UI 30 2- 2- 00 07 MA ve S 89 20 20 48 RT 5 42 17 17 75 MG 1 32 PH AR TA MA BL CY ET #5 91 AT 68 05 06 30 30 00 MT Ac OR 64 -1 -0 .0 00 L- ti VA 50 1- 2- [address] 46 20 20 48 RT AT 05 17 17 75 IN 4 01 PH AR 40 MA CY MG #5 TA 91 BL ET HU 00 04 05 2. 28 00 AC Ac NJ 07 -2 -1 00 00 CR ti RA 43 5- 9- 0 06 ED ve 79 20 20 71 O 40 90 17 17 62 HE 2 16 AL MG TH /0 .8 GR OU ML P IN SY C RI NG E ME 00 04 05 21 6 00 RI Ac TH 78 -2 -1 .0 00 TE ti YL 15 6- 9- 00 01 ve MT 02 20 20 18 AI ED 20 17 17 15 D NI 7 23 PH SO AR LO MA NE CY 4 #3 MG 93 8 DO SE PK DI 00 04 05 30 5 00 RI Ac AZ 17 -2 -1 .0 00 TE ti EP 23 6- 9- 00 01 ve AM 92 20 20 18 AI 5 67 17 17 15 D 0 39 PH MG AR MA TA CY BL ET #3 93 8 AT 60 04 05 30 30 00 RI Ac OR 50 -1 -0 .0 00 TE ti VA 52 5- 5- [address] 58 20 20 15 AI AT 00 17 17 70 D IN 9 41 PH AR 40 MA CY MG #3 TA 93 BL 8 ET HY 16 04 05 30 [address] 72 -1 -0 .0 00 TE ti OC 90 5- 5- 00 01 ve HL 18 20 20 16 AI OR 31 17 17 94 D OT 7 35 PH HI AR AZ MA ID CY E 25 #3 93 MG 8 TA B EL 00 04 05 60 30 00 RI Ac IQ 00 -1 -0 .0 00 TE ti UI 30 2- 5- 00 01 ve S 89 20 20 16 AI 5 42 17 17 41 D MG 1 65 PH AR TA MA BL CY ET #3 93 8 VE 23 04 05 60 30 00 RI Ac RA 15 -1 -0 .0 00 TE ti PA 50 0- 5- 00 01 ve NJ 02 20 20 13 AI L 70 17 17 97 D 12 1 66 PH 0 AR MG MA CY TA BL #3 ET 93 8 HY 00 04 05 60 [address] 37 -1 -0 .0 00 TE ti OX 80 0- 5- 00 01 ve YC 37 20 20 13 AI HL 30 17 17 69 D OR 1 77 PH OQ AR UI MA NE CY 20 #3 0 93 MG 8 TA B ES 65 04 05 30 30 00 RI Ac CI 86 -1 -0 .0 00 TE ti TA 20 0- 5- 00 01 ve LO 37 20 20 13 AI MT 50 17 17 32 D AM 1 59 PH AR 20 MA CY MG #3 TA 93 BL 8 ET TR 00 04 05 30 30 00 RI Ac IA 78 -1 -0 .0 00 TE ti MT 12 5- 5- 00 01 ve ER 07 20 20 17 AI EN 40 17 17 29 D E- 1 25 PH HC AR TZ MA CY 37 .5 #3 -2 93 5 8 MG CP PO 00 04 04 60 30 00 RI Ac TA 78 -0 -2 .0 00 TE ti SS 15 4- 8- 00 01 ve IU 72 20 20 17 AI M 00 17 17 30 D CL 1 28 PH AR ER MA CY 20 #3 ME 93 Q 8 TA BL ET HY 00 03 04 [address] 40 -2 -2 .0 00 TE ti OC 60 8- 1- 00 01 ve OD 12 20 20 17 AI ON 30 17 17 75 D -A 1 23 PH CE AR TA MA NJ CY NO PH #3 EN 93 8 5- 32 5 LE 65 03 04 5. 5 00 RI Ac VO 86 -2 -1 00 00 TE ti FL 20 0- 4- 0 01 ve OX 53 20 20 17 AI AC 82 17 17 61 D IN 0 04 PH AR 75 MA 0 CY MG #3 TA 93 BL 8 ET ME 00 03 04 21 6 00 RI Ac TH 78 -2 -1 .0 00 TE ti YL 15 0- 4- 00 01 ve MT 02 20 20 17 AI ED 20 17 17 61 D NI 7 02 PH SO AR LO MA NE CY 4 #3 MG 93 8 DO SE PK VE 00 03 04 18 16 00 RI Ac NT 17 -2 -1 .0 00 TE ti OL 30 0- 4- 00 01 ve IN 68 20 20 17 AI 22 17 17 61 D HF 0 03 PH A AR 90 MA CY MC G #3 IN 93 BLAND 8 LE R AT 60 03 04 30 30 00 RI Ac OR 50 -1 -0 .0 00 TE ti VA 52 4- 7- [address] 58 20 20 15 AI AT 00 17 17 70 D IN 9 41 PH AR 40 MA CY MG #3 TA 93 BL 8 ET MT 59 03 03 70 28 00 RI Ac ED 74 -0 -3 .0 00 TE ti NI 60 7- 1- 00 01 ve SO 17 20 20 17 AI NE 21 17 17 42 D 5 0 40 PH AR MG MA CY TA BL #3 ET 93 8 AZ 50 03 03 6. 5 00 RI Ac IT 11 -0 -3 00 00 TE ti HR 10 6- 1- 0 01 ve OM 78 20 20 17 AI YC 76 17 17 39 D IN 6 70 PH AR 25 MA 0 CY MG #3 TA 93 BL 8 ET HY 00 03 03 60 [address] 37 -1 -3 .0 00 TE ti OX 80 1- 1- 00 01 ve YC 37 20 20 13 AI HL 30 17 17 69 D OR 1 77 PH OQ AR UI MA NE CY 20 #3 0 93 MG 8 TA B ES 65 03 03 30 30 00 RI Ac CI 86 -1 -3 .0 00 TE ti TA 20 1- 1- 00 01 ve LO 37 20 20 13 AI MT 50 17 17 32 D AM 1 59 PH AR 20 MA CY MG #3 TA 93 BL 8 ET VE 23 03 03 60 30 00 RI Ac RA 15 -1 -3 .0 00 TE ti PA 50 1- 1- 00 01 ve NJ 02 20 20 13 AI L 70 17 17 97 D 12 1 66 PH 0 AR MG MA CY TA BL #3 ET 93 8 EL 00 02 03 60 30 00 RI Ac IQ 00 -2 -2 .0 00 TE ti UI 30 8- 4- 00 01 ve S 89 20 20 16 AI 5 42 17 17 41 D MG 1 65 PH AR TA MA BL CY ET #3 93 8 PO 00 02 03 60 30 00 RI Ac TA 78 -2 -2 .0 00 TE ti SS 15 7- 4- 00 01 ve IU 72 20 20 17 AI M 00 17 17 30 D CL 1 28 PH AR ER MA CY 20 #3 ME 93 Q 8 TA BL ET HY 16 02 03 30 [address] 72 -2 -2 .0 00 TE ti OC 90 8- 4- 00 01 ve HL 18 20 20 16 AI OR 31 17 17 94 D OT 7 35 PH HI AR AZ MA ID CY E 25 #3 93 MG 8 TA B TR 00 02 03 30 30 00 RI Ac IA 78 -2 -2 .0 00 TE ti MT 12 7- 4- 00 01 ve ER 07 20 20 17 AI EN 40 17 17 29 D E- 1 25 PH HC AR TZ MA CY 37 .5 #3 -2 93 5 8 MG CP HY 00 02 03 60 [address] 37 -0 -1 .0 00 TE ti OX 80 9- 0- 00 01 ve YC 37 20 20 13 AI HL 30 17 17 69 D OR 1 77 PH OQ AR UI MA NE CY 20 #3 0 93 MG 8 TA B ES 65 02 03 30 30 00 RI Ac CI 86 -0 -1 .0 00 TE ti TA 20 9- 0- 00 01 ve LO 37 20 20 13 AI MT 50 17 17 32 D AM 1 59 PH AR 20 MA CY MG #3 TA 93 BL 8 ET VE 23 02 03 60 30 00 RI Ac RA 15 -0 -1 .0 00 TE ti PA 50 9- 0- 00 01 ve NJ 02 20 20 13 AI L 70 17 17 97 D 12 1 66 PH 0 AR MG MA CY TA BL #3 ET 93 8 AT 60 02 02 30 30 00 RI Ac OR 50 -0 -2 .0 00 TE ti VA 52 1- 4- [address] 58 20 20 15 AI AT 00 17 17 70 D IN 9 41 PH AR 40 MA CY MG #3 TA 93 BL 8 ET TR 00 02 02 30 30 00 RI Ac IA 78 -0 -2 .0 00 TE ti MT 12 1- 4- 00 01 ve ER 07 20 20 15 AI EN 40 17 17 53 D E- 1 18 PH HC AR TZ MA CY 37 .5 #3 -2 93 5 8 MG CP EL 00 02 02 60 30 00 RI Ac IQ 00 -0 -2 .0 00 TE ti UI 30 2- 4- 00 01 ve S 89 20 20 16 AI 5 42 17 17 41 D MG 1 65 PH AR TA MA BL CY ET #3 93 8 HY 16 02 02 30 [address] 72 -0 -2 .0 00 TE ti OC 90 2- 4- 00 01 ve HL 18 20 20 16 AI OR 31 17 17 94 D OT 7 35 PH HI AR AZ MA ID CY E 25 #3 93 MG 8 TA B PO 00 01 02 60 30 00 RI Ac TA 78 -2 -1 .0 00 TE ti SS 11 7- 7- 00 01 ve IU 52 20 20 16 AI M 60 17 17 87 D CL 1 90 PH AR ER MA CY 10 #3 ME 93 Q 8 TA BL ET DI 00 01 02 20 5 00 RI Ac CY 37 -1 -1 .0 00 TE ti CL 81 5- 0- 00 01 ve OM 62 20 20 10 AI IN 00 17 17 28 D E 1 66 PH 20 AR M MG #3 92 TA 0 BL ET PH 00 01 02 6. 1 00 RI Ac EN 59 -1 -1 00 00 TE ti AD 12 5- 0- 0 01 ve OZ 99 20 20 10 AI 23 17 17 28 D 25 9 67 PH AR MG M #3 ALEMAN 92 PP 0 OS IT OR Y HY 00 01 02 [address] 40 -1 -1 .0 00 TE ti OC 60 6- 0- 00 00 ve OD 12 20 20 75 AI ON 30 17 17 29 D -A 1 52 PH CE AR TA M NJ #3 NO 91 PH 4 EN 5- 32 5 VE 23 01 02 60 30 00 RI Ac RA 15 -1 -1 .0 00 TE ti PA 50 0- 0- 00 01 ve NJ 02 20 20 13 AI L 70 17 17 97 D 12 1 66 PH 0 AR MG MA CY TA BL #3 ET 93 8 HY 00 01 02 60 [address] 37 -1 -1 .0 00 TE ti OX 80 0- 0- 00 01 ve YC 37 20 20 13 AI HL 30 17 17 69 D OR 1 77 PH OQ AR UI MA NE CY 20 #3 0 93 MG 8 TA B ES 65 01 02 30 30 00 RI Ac CI 86 -1 -1 .0 00 TE ti TA 20 0- 0- 00 01 ve LO 37 20 20 13 AI MT 50 17 17 32 D AM 1 59 PH AR 20 MA CY MG #3 TA 93 BL 8 ET PO 62 01 02 25 15 00 RI Ac LY 17 -1 -1 5. 00 TE ti ET 50 7- 0- 00 01 ve HY 44 20 20 0 16 AI LE 21 17 17 72 D NE 5 51 PH AR GL MA YC CY OL #3 33 93 50 8 PO WD HY 16 01 02 30 [address] 72 -0 -0 .0 00 TE ti OC 90 4- 3- 00 01 ve HL 18 20 20 13 AI OR 31 17 17 92 D OT 7 25 PH HI AR AZ MA ID CY E 25 #3 93 MG 8 TA B EN 58 01 02 3. 28 00 AC Ac BR 40 -0 -0 91 00 CR ti EL 60 4- 3- 9 06 ED ve 43 20 20 41 O 50 50 17 17 16 HE 4 50 AL MG TH /M L GR SY OU RI P NG IN E C AT 60 01 02 30 30 00 RI Ac OR 50 -0 -0 .0 00 TE ti VA 52 5- 3- [address] 58 20 20 15 AI AT 00 17 17 70 D IN 9 41 PH AR 40 MA CY MG #3 TA 93 BL 8 ET EL 00 12 01 60 30 00 RI Ac IQ 00 -2 -2 .0 00 TE ti UI 30 8- 0- 00 01 ve S 89 20 20 16 AI 5 42 16 17 41 D MG 1 65 PH AR TA MA BL CY ET #3 93 8 TR 00 12 01 30 30 00 RI Ac IA 78 -2 -2 .0 00 TE ti MT 12 7- 0- 00 01 ve ER 07 20 20 15 AI EN 40 16 17 53 D E- 1 18 PH HC AR TZ MA CY 37 .5 #3 -2 93 5 8 MG CP LE 23 12 01 30 30 00 RI Ac FL 15 -2 -2 .0 00 TE ti UN 50 7- 0- 00 01 ve OM 04 20 20 16 AI ID 40 16 17 04 D E 3 80 PH 20 AR MA MG CY TA #3 BL 93 ET 8 WA 51 12 01 40 30 00 RI Ac RF 67 -2 -1 .0 00 TE ti AR 24 1- 3- 00 01 ve IN 03 20 20 14 AI 20 16 17 59 D SO 1 90 PH DI AR UM MA 5 CY MG #3 93 TA 8 BL ET ES 00 01 01 00 30 27 WA 70 SP Ac TR 55 -1 -2 .0 L- 19 IR ti AD 50 9- 8- 00 MA 57 EK ve IO 88 20 20 RT 3 L 60 10 10 AN 1 2 PH IT MG AR A MA J TA CY BL ET #4 93 IB 68 01 01 00 30 10 WA 70 SP Ac UP 64 -1 -2 .0 L- 19 IR ti RO 50 9- 8- 00 MA 57 EK ve FE 22 20 20 RT 4 N 25 10 10 AN 80 4 PH IT 0 AR A MG MA J CY TA BL #4 ET 93 00 01 01 00 20 3 WA 44 SP Ac 40 -1 -2 .0 L- 78 IR ti 60 9- 8- 00 MA 83 EK ve 35 20 20 RT 4 80 10 10 AN 1 PH IT AR A MA J CY #4 93 00 01 01 00 8. 28 RI 38 SP Ac 07 -0 -1 00 TE 76 IR ti 80 7- 4- 0 95 EK ve 48 20 20 AI 14 10 10 D AN 2 PH IT AR A M J #3 91 4 OX 00 01 00 30 2 WA 22 HI Ac YC 40 -0 -1 .0 L- 17 GH ti OD 60 6- 4- 00 MA 33 ve ON 51 20 20 RT 6 JR E- 20 10 10 AC 1 PH CU ET AR RT AM MA IS IN CY L OP HE #4 N 93 5- 32 5 IB 68 01 01 00 30 7 WA 70 HI Ac UP 64 -0 -1 .0 L- 18 GH ti RO 50 6- 4- 00 MA 10 ve FE 22 20 20 RT 4 JR N 15 10 10 60 9 PH CU 0 AR RT MG MA IS CY L TA BL #4 ET 93 FL 00 12 01 01 1. 1 SO 33 No Ac UC 17 -2 -1 00 PE 12 t ti ON 25 1- 4- 0 RS 92 Av ve AZ 41 20 20 ai OL 21 09 10 FA la E 1 NJ bl 15 LY e [address] UG TA BL ET TA 00 12 12 00 10 5 SO 33 No Ac NJ 00 -1 -3 .0 PE 10 t ti FL 40 7- 1- 00 RS 96 Av ve U 80 20 20 ai 75 08 09 09 FA la 5 NJ bl MG LY e CA DR PS UG UL E FL 00 12 12 00 1. 1 SO 33 No Ac UC 17 -2 -3 00 PE 12 t ti ON 25 1- 1- 0 RS 92 Av ve AZ 41 20 20 ai OL 21 09 09 FA la E 1 NJ bl 15 LY e [address] UG TA BL ET ALEMAN 00 12 12 00 14 7 SO 33 No Ac LF 60 -1 -3 .0 PE 10 t ti AM 35 7- 1- 00 RS 97 Av ve ET 78 20 20 ai HO 12 09 09 FA la XA 8 NJ bl ZO LY e LE -T DR ENCISO UG DS TA BL ET Results Labs Lab Lab Date Result Refere [...] 012 ed 21:32 TROPONI N? _YES_ 2.2153. VWC. . .M RD BCK K. complet VRFY: 012 ed 21:32 153/xin 0 [...] - complet 012 12.0 ed 21:30 NE% 2 57.7 % 37.0 - complet 012 80.0 ed 21:30 EO% 1.70 % 0.00 - complet 012 7.00 ed 21:30 BA% 1.20 % 0.00 - complet 012 2.50 ed 21:30 LY# 03-08-2 2.06 0.60 - complet 012 K/uL 3.40 ed 21:30 MO# 03-08-2 0.49 0.00 - complet 012 K/uL 0.90 ed 21:30 NE# 03-08-2 3.74 2.00 - complet 012 K/uL 6.90 ed 21:30 EO# 03-08- 0.11 0.00 - complet 012 K/uL 0.70 ed 21:30 BA# 03-08-2 0.08 0.00 - complet 012 K/uL 0.20 [...] 21:30 NOT AVAILAB LE ON PATIENT S W/ARLEIS L CKMB MYOGLOBIN PLASMA (03-08-2012 21:30) MYOGLOB [...] If complet 012 patient ed 21:30 is Jarrell n, multipl y GFR by 1.120. 12-09-2 *GFR complet 012 only ed 21:30 applies [...] If complet 012 patient ed 08:52 is Jarrell n, multipl y GFR by 1.120. SODIUM [...] CBC W DIFF AUTOMATED (02-06-2012 21:59) WBC 02-05-2 6.6 4.60 - complet 012 K/uL 10.20 ed 21:59 RBC 3.86 4.04 - Below complet 012 M/uL 6.13 low ed 21:59 normal HGB 12.1 12.20 - Below complet 012 g/dL 18.10 low ed 21:59 normal HCT 33 % 37.70 - Below complet 012 53.70 low ed 21:59 normal MCV 85.8 fL 80.0 - complet 012 97.0 ed 21:59 MCH 02-05-2 31.3 pg 27.0 - Above complet 012 31.20 high ed 21:59 normal MCHC 2 36.6 31.80 - Above complet 012 g/dL 35.40 high ed 21:59 normal RDW 02-05-2 11.9 % 11.60 - complet 012 14.80 ed 21:59 PLT 02-05-2 180 142 - complet 012 K/uL 424 ed 21:59 LY% 02-05-2 20.6 % 10.0 - complet 012 50.0 ed 21:59 MO% 08-2 6.6 % 0.0 - complet 012 12.0 ed 21:59 NE% 02-05-2 71.1 % 37.0 - complet 012 80.0 ed 21:59 EO% 08-2 0.60 % 0.00 - complet 012 7.00 ed 21:59 BA% 08-2 1.10 % 0.00 - complet 012 2.50 ed 21:59 LY# 1108-2 1.35 0.60 - complet 012 K/uL 3.40 ed 21:59 MO# 11-08-2 0.43 0.00 - complet 012 K/uL 0.90 ed 21:59 NE# 11-08-2 4.66 2.00 - complet 012 K/uL 6.90 ed 21:59 EO# 02-05-2 0.04 0.00 - complet 012 K/uL 0.70 ed 21:59 BA# 02-05-2 0.07 0.00 - complet 012 K/uL 0.20 ed 21:59 Manual NOT complet Diff 012 INDICAT ed 21:59 [...] If complet 012 patient ed 21:59 is Jarrell n, multipl y GFR by 1.120. *GFR [...] complet GAP 012 mmol/L ed 21:59 GLUCOSE 02-05-2 106 70 - complet 012 mg/dl 120 ed 21:59 BUN 08-2 14 7 - 18 complet 012 mg/dl ed 21:59 CREATIN 08-2 0.8 0.60 - complet INE 012 mg/dl 1.30 ed 21:59 AGE [birth year]2 41 yrs complet 012 ed 21:59 GFR 02-05-2 60 complet 012 ml/min ed 21:59 CALCIUM 08-2 8.6 8.50 - complet 012 mg/dl 10.10 ed 21:59 TOTAL 08-2 0.8 0.20 - complet SHANIQUA 012 mg/dl 1.0 ed 21:59 AST 02-05-2 59 IU/L 15 - 37 Above complet (SGOT) 012 high ed 21:59 normal ALT 02-05-2 76 IU/L 30 - 65 Above complet (SGPT) 012 high ed 21:59 normal Procedures Procedure [place] [address] [place] [facility] ANGIOGRAP 7 MEDICAL HY CHEST IMAGING W/CONTRAS ASS T/NONCONT RAST RADIOLOGI [address] [place] C 7 MEDICAL EXAMINATI IMAGING ON CHEST ASS [place] FRONTAL LAP 6524 [facility] REMOVAL 0 N N BOTH [facility] [email or web address] LAPAROSCO 6851 [facility] PICALLY 0 N N ASSISTED [facility] HYSTERECT TAWANDA Encounters Encounter Start End Date Code Location Performer Type Date [facility] - 7 7 [facility] OFFICE [address] [facility] 7 7 [place] VISIT PHYSICIAN 25 S MINUTES [facility] - 7 7 [facility] OUTPATIEN [facility] 7 7 [facility] - 7 7 [facility] - 7 7 [facility] 7 7 [facility] - 7 7 [facility] - 7 7 [facility] - 7 [facility] - 7 7 [facility] - 7 7 [facility] 7 7 [facility] [place] - 7 7 [facility] [place] - 7 7 [facility] - 7 [facility] [place] [facility] 7 7 [facility] [place] - 7 7 [facility] - 7 7 [facility] - 7 7 [facility] [place] - 7 7 [facility] - 6 6 [facility] - 6 6 [facility] - 6 6 [facility] [place] - 6 6 [facility] - 6 6 [facility] - 6 6 [facility] [place] - 6 6 [facility] - 6 6 [facility] - 6 6 [facility] - 6 6 [facility] - 6 6 [facility] - 6 6 [facility] - 5 5 [facility] [place] - 5 5 [facility] [place] - 5 5 [facility] [place] - 5 5 [facility] [place] - 5 5 [facility] - 5 5 [facility] [place] - 5 5 [facility] [place] - 5 5 [facility] [place] - 5 5 [facility] - 5 5 [facility] [place] - 4 4 [facility] [place] [id number] [facility] [place] - 4 4 [facility] [place] - 4 4 [facility] [place] [facility] 4 4 [facility] 4 [facility] - 2 2 [facility] 2 2 [facility] [place] - 2 [address] [facility] [address] [place] - 1 [address] [facility] [address]
--- OUTSIDE RECORDS SUMMARY | 2017-02-13 14:11 | External Medical Summary Rpt | CCD ---
Author Author , VINCENT Organization VINCENT Address Unknown Phone [email or web address] Care Team Providers Care Shake Loader Name Role Phone [facility], Unavailable Unavailable [facility] Unavailable Unavailable CLINIC, [facility] RAY, RAY Unavailable Unavailable [facility] Unavailable Unavailable [facility], [facility]available Unavailable PRACTICE L, [facility] LUIS SMITH Unavailable Unavailable [facility] Unavailable Unavailable [facility], [facility], [facility]available Unavailable [facility] [employer], Unavailable Unavailable [facility] Unavailable Unavailable [facility], [facility], [facility]available Unavailable [facility] Unavailable Unavailable H[facility]PITAL, [facility], Unavailable Unavailable [facility] Unavailable Unavailable INC, [facility] Unavailable Unavailable HOSPITAL, [facility] Unavailable Unavailable HOSPITAL P, [facility] Unavailable Unavailable GROUP, INC[facility] CAROL HO Unavailable Unavailable [facility]available Unavailable GROUP PS, [facility] Unavailable Unavailable [facility], [facility] Unavailable Unavailable MEDICAL G, [facility] Un[facility], [facility] Un[facility], [facility] Unavailable Unavailable HOLDINGS, [facility], Unavailable Unavailable [facility] [employer] & Unavailable Unavailable [facility], Unavailable Unavailable [facility] Unavailable Unavailable SERVICES, [facility] Unavailable Un[facility] Unavailable Unavailable MEDICAL, [facility] Unavailable Unavailable PSC, [facility], [facility] Unavailable Unavailable LABS, LLC CHINO MOLINA MD Unavailable Unavailable CONSULTING SRV, CHINO MOLINA MD CONSULTING SRV [facility], Unavailable Unavailable PLLC, [facility], [facility] Unavailable Unavailable LAB, PATHOLOGY & CYTOLOGY LAB ANDREZ SPENCER Unavailable Unavailable [id number], Unavailable Unavailable [id number] [place] Unavailable Unavailable [facility], [facility], Unavailable Unavailable [facility] Unavailable Unavailable [facility]Y PH[facility], [facility] Unavailable Unavailable [facility], [facility], [facility]available Unavailable [facility] Unavailable Unavailable HOSPITALS, [facility], [facility]available Unavailable [facility] Unavailable [facility] Unavailable Unavailable PHYSICIANS, [facility] Unavailable Unavailable #493, [facility] Purpose Continuity of Care Document - 03-27-2009 through 2016 Problems Code Diagnosis DOS Provider Status R05 COUGH 12-30-2016 [facility] PRACTICE L I10 ESSENTIAL 12-24-2016 [facility] P N J209 ACUTE 12-24-2016 [facility] BRONCHITIS PHYSICIANS, UNSPECIFIED [facility] R0602 SHORTNESS 12-24-2016 [facility] OF BREATH PHYSICIANS, [facility] R071 CHEST PAIN 12-24-2016 [facility] R0781 PLEURODYNIA 12-24-2016 [facility] R091 PLEURISY 12-24-2016 [facility] Z881 ALLERGY 12-24-2016 [facility] STATUS TO [facility] P ANTIBIOTIC AGENTS STATUS Z886 ALLERGY 12-24-2016 [facility] STATUS TO [facility] P AGENT STATUS D6869 OTHER 12-19-2016 [place] THROMBOPHIL [facility] [place] PHYSICIANS E876 HYPOKALEMIA 12-19-2016 [facility] PHYSICIANS I639 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 [place] INFARCTION [facility] UNSPECIFIED PHYSICIANS M069 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 [place] ARTHRITIS [facility] UNSPECIFIED PHYSICIANS Z09 ENC F/U 12-19-2016 [facility] EXAM AFTR HEALTHCARE CMPL TX OT HOSPITALS THAN [facility] NEOPLSM D54780 PERSONAL 12-19-2016 HISTORY OT HEALTHCARE VENOUS HOSPITALS THROMBOSIS& EMBOLISM H21534 SPONDYLOSIS 10-21-2016 W/O HEALTHCARE MYELOPATH/R HOSPITALS ADICULOPATH Y CERV RGN M791 MYALGIA 10-21-2016 HEALTHCARE HOSPITALS M0579 RA 10-09-2016 [facility] W/RHEUMATOI SERV D FCT MX FOUNDATION SITE W/O ORGAN/SYS INVLV M797 FIBROMYALGI 10-09-2016 [facility] A SERV [facility] T87170 OTHER LONG 10-09-2016 [facility] TERM SERV CURRENT FOUNDATION DRUG THERAPY R51 HEADACHE 10-04-2016 [facility]OS[facility] INC D6859 OTHER 09-09-2016 [place] PRIMARY OF [place] THROMBOPHIL PHYSICIANS IA R635 ABNORMAL 09-09-2016 [place] WEIGHT GAIN OF DC PHYSICIANS Z8673 PERSONAL HX 09-09-2016 [place] TIA & OF [facility] CEREB PHYSICIANS INFARCT NO RESID DEFICIT J0190 ACUTE 08-27-2016 [facility] SINUSITIS PHYSICIAN UNSPECIFIED PRACTICE L Z7901 PHARMACY BENEFITS COORDINATOR 08-14-2016 CURRENT USE HEALTHCARE OF HOSPITALS ANTICOAGULA NTS H80096 PERSONAL 08-14-2016 HISTORY OF HEALTHCARE PULMONARY HOSPITALS EMBOLISM E237 DISORDER OF 08-12-2016 [facility] PITUITARY SERV GLAND FOUNDATION UNSPECIFIED X41929 CHRONIC 08-12-2016 [facility] EMBO THROMB SERV UNS DEEP FOUNDATION VEINS UNS LOW EXT M059 RA WITH 08-12-2016 [facility] RHEUMATOID SERV FACTOR FOUNDATION UNSPECIFIED E039 HYPOTHYROID 07-30-2016 [facility] ISM [facility] UNSPECIFIED HOLDINGS H8113 BENIGN 07-24-2016 TIFF[facility] PAROXYSMAL PHYSICIAN VERTIGO PRACTICE L BILATERAL F32.9 MAJOR 07-15-2016 DEPRESSIVE DISORDER, SINGLE EPISODE, UNSPECIFIED I10 ESSENTIAL 07-15-2016 (PRIMARY) HYPERTENSIO N R10.32 LEFT LOWER 07-15-2016 [facility] PAIN Z79.01 SENIOR CARE 07-15-2016 (CURRENT) USE OF ANTICOAGULA NTS Z79.899 [...] MEM HOS[facility] PAIN INC R1084 GENERALIZED 06-26-2016 [facility]AL [facility] PAIN IMAGING ASS R109 UNSPECIFIED 06-26-2016 [facility] ABDOMINAL PHYSICIANS, PAIN PLLC D121 BENIGN 06-25-2016 [facility] NEOPLASM OF PHYSICIAN APPENDIX PRACTICE L E079 DISORDER OF 06-25-2016 [facility] THYROID COMM[facility]ITY UNSPECIFIED HOSPITAL K219 GASTRO-ESOP 06-25-2016 [facility] H REFLUX COMMUNITY DISEASE HOSPITAL WITHOUT ESOPHAGITIS K3580 UNSPECIFIED 06-25-2016 [facility] ACUTE ANESTHESIA APPENDICITI GROUP PS S Q430 MECKELS 06-25-2016 [facility] DIVERTICULU PHYSICIAN M DISPLACED PRACTICE L HYPERTROPHI C R1030 LOWER 06-25-2016 [facility] ABDOMINAL COMMUNITY PAIN HOSPITAL UNSPECIFIED E236 OTHER 06-13-2016 [facility] PITUITARY GLAND E669 OBESITY 06-13-2016 [place] [facility] UNSPECIFIED SERV FOUNDATION R5383 OTHER 06-13-2016 [facility] HOSPITALS K529 NONINFECTIV 06-05-2016 [facility]ino DIGESTIVE GASTROENTER CARE CENTER ITIS & COLITIS UNS K582 MIXED 06-05-2016 [facility] IRRITABLE DIGESTIVE BOWEL CARE CENTER SYNDROME N816 RECTOCELE 06-05-2016 [facility] DIGESTIVE [facility]ARE CENTER R112 NAUSEA WITH 05-16-2016 [facility] [place] [facility] UNSPECIFIED M61869 ACUTE EMBO 04-26-2016 [facility] HEALTHCARE DEEP VEINS HOSPITALS UNS LOW EXTREM K2980 DUODENITIS 04-19-2016 [facility] WITHOUT DIGESTIVE BLEEDING CARE CENTER K635 POLYP OF 04-19-2016 [facility] COLON ANESTHESIA GROUP PS K648 OTHER 04-19-2016 [facility] HEMORRHOIDS DIGESTIVE CARE CENTER Z8719 PERSONAL 04-19-2016 [facility] HISTORY DIGESTIVE OTHER CARE CENTER DISEASES DIGESTIVE SYSTEM Z7902 PHARMACY BENEFITS COORDINATOR 04-15-2016 [facility] CURR USE COMM[facility]ITY ANTITHROMBO HOSPITAL TICS/ANTIPL ATELETS Z888 ALLERGY 04-15-2016 [place] STATUS OTH COMMUNITY RX MEDS & HOSPITAL BIOLOG SUBSTAN STS D21635 LATEX 04-15-2016 [place] ALLERGY [facility] N200 CALCULUS OF 04-13-2016 [facility] M0600 RA WITHOUT 02-29-2016 [facility] RHEUMATOID SERV FACTOR FOUNDATION UNSPECIFIED SITE D352 BENIGN 02-08-2016 [place] NEOPLASM OF PHYSICIAN PITUITARY PRACTICE L [place]AND R2689 OTHER 02-08-2016 [place] ABNORMALITI PHYSICIAN ES OF GAIT PRACTICE L AND MOBILITY G08 INTRACRANL 02-06-2016 [facility] & SERV INTRASPINL FOUNDATION PHLEBIT & THROMBOPHLE BIT I340 NONRHEUMATI 02-06-2016 [facility] C MITRAL SERV VALVE FOUNDATION INSUFFICIEN CY I351 NONRHEUMATI 02-06-2016 [facility] C AORTIC SERV VALVE FOUNDATION INSUFFICIEN CY I358 OTHER 02-06-2016 [facility] NONRHEUMATI SERV C AORTIC FOUNDATION VALVE DISORDERS I517 CARDIOMEGAL 02-06-2016 [place] [facility] Y SERV [facility]OUND[facility] N179 ACUTE 02-06-2016 [facility] KIDNEY SERV FAILURE FOUNDATION UNSPECIFIED N189 CHRONIC 02-06-2016 [facility] KIDNEY SERV DISEASE FOUNDATION UNSPECIFIED R791 ABNORMAL 02-06-2016 [facility] COAGULATION SERV PROFILE FOUNDATION D689 COAGULATION 02-05-2016 [facility] DEFECT SERV UNSPECIFIED FOUNDATION L72006 MIGRAINE 02-05-2016 [facility] W/AURA NOT SERV INTRACT W/O FOUNDATION STAT MIGRAINOSUS H538 OTHER 02-05-2016 [facility] VISUAL MEDICAL DISTURBANCE IMAGING ASS S H5442 BLINDNESS 02-05-2016 [facility] LEFT EYE SERV NORMAL FOUNDATION VISION RIGHT EYE P92652 CEREBRAL 02-05-2016 [facility] INFARCT D/T PHYSICIANS, EMBOLISM PLLC LT POST CERBRL ART R9402 ABNORMAL 02-05-2016 [facility] BRAIN SCAN SERV FOUNDATION H6983 OTHER SPEC 01-25-2016 [place] DISORDERS PHYSICIAN EUSTACHIAN PRACTICE L TUBE BILAT I889 NONSPECIFIC 01-25-2016 [place] PHYSICIAN LYMPHADENIT PRACTICE L IS UNSPECIFIED H6501 ACUTE 01-20-2016 [facility] SEROUS PHYSICIANS, OTITIS PLLC MEDIA RIGHT EAR L049 ACUTE 01-20-2016 [facility] LYMPHADENIT PHYSICIANS, IS PLLC UNSPECIFIED M5481 OCCIPITAL 01-17-2016 [place] [facility] K28114 PAIN IN 12-07-2015 [place] RIGHT LEG MEDICAL IMAGING ASS H9313 TINNITUS 12-06-2015 [place] BILATERAL PHYSICIAN PRACTICE L H938X1 OTHER 12-06-2015 [place] SPECIFIED PHYSICIAN DISORDERS PRACTICE L OF RIGHT EAR M2550 PAIN IN 11-21-2015 [place] UNSPECIFIED HOSPITAL JOINT Z0000 ENCOUNTER 11-21-2015 [facility] MED EXAM W/O ABNORMAL FIND T19579 PAIN IN 11-16-2015 [facility] [place] LEFT FOOT RADIOLOGY Z5181 ENCOUNTER 09-14-2015 [facility] DRUG LEVEL MONITORING I2699 OTH 09-13-2015 [facility] PULMONARY [facility] EMBOLISM INC W/O ACUTE COR PULMONALE J988 OTHER 08-14-2015 [place] SPECIFIED PHYSICIAN RESPIRATORY PRACTICE L DISORDERS L259 UNSPECIFIED 08-04-2015 [place] CONTACT PHYSICIAN DERMATITIS PRACTICE L UNSPECIFIED CAUSE K625 HEMORRHAGE 2015 [place] OF ANUS AND PHYSICIAN RECTUM PRACTICE L R7989 OTHER SPEC 07-11-2015 [facility] ABNORMAL PHYSICIANS, FINDINGS PLLC BLOOD CHEMISTRY O73773 MIGRAINE 07-10-2015 [place] W/O AURA REGIONAL NOT [...] [place] MAXILLARY PHYSICIAN SINUSITIS PRACTICE L UNSPECIFIED M52320 KERATOCONJU 05-19-2015 ANDRE[facility] AQUILES NCTIVITIS SICCA NOT SJOGREN BILATERAL H109 UNSPECIFIED 05-10-2015 [facility] TIS M461 SACROILIITI 05-01-2015 [facility] S NOT MEM HOSP ELSEWHERE INC CLASSIFIED M545 LOW BACK 05-01-2015 [facility] PAIN MEM HOSP INC H524 PRESBYOPIA 04-17-2015 ANDRE[facility] KWAN M5442 LUMBAGO 04-13-2015 [facility] LANDRUM WITH SCIATICA LEFT SIDE K5900 CONSTIPATIO 04-06-2015 [place] N PHYSICIAN UNSPECIFIED PRACTICE L R0789 OTHER CHEST 03-18-2015 [facility] PAIN PHYSICIANS, [facility] R079 CHEST PAIN 03-18-2015 [facility] UNSPECIFIED MEDICAL IMAGING ASS R946 ABNORMAL 03-07-2015 [place] RESULTS OF PHYSICIAN THYROID PRACTICE L FUNCTION STUDIES Z202 CONTACT 03-07-2015 [place] WITH PHYSICIAN EXPOSURE PRACTICE L INFECT SEXUAL MODE TRANSMS I2609 OTHER 02-03-2015 [facility] EMBOLISM HOSPITAL W/ACUTE COR PULMONALE A048 OTHER 01-23-2015 [place] SPECIFIED PHYSICIAN BACTERIAL PRACTICE L INTESTINAL INFECTIONS R1013 EPIGASTRIC 01-19-2015 [facility] MEDICAL G R001 BRADYCARDIA 01-18-2015 [place] UNSPECIFIED CLINIC PSC R072 PRECORDIAL 01-18-2015 [facility] [place] PAIN RADIOLOGY 7804 DIZZINESS 12-19-2014 [facility] GIDDINESS INC V571 OTHER 12-19-2014 [facility] PHYSICAL [facility]OS[facility] THERAPY INC 68057 UNSPECIFIED 12-14-2014 [place] MENIERES PHYSICIAN DISEASE PRACTICE L 62507 VESTIBULAR 12-14-2014 [place] NEURONITIS PHYSICIAN PRACTICE L 27841 UNSPECIFIED 12-14-2014 [place] TINNITUS PHYSICIAN PRACTICE L 14846 SENSORINEUR 12-14-2014 [place] AL HEARING PHYSICIAN LOSS PRACTICE L BILATERAL 470 DEVIATED 12-14-2014 [place] NASAL PHYSICIAN SEPTUM PRACTICE L 4779 ALLERGIC 12-14-2014 [place] RHINITIS PHYSICIAN CAUSE PRACTICE L UNSPECIFIED 60141 OTH 12-14-2014 [place] SYMPTOMS PHYSICIAN INVLV PRACTICE L NERV&MUSCUL OSKELETAL SYSTEMS 2449 UNSPECIFIED 12-12-2014 [facility] HYPOTHYROID HOLDINGS ISM 46318 DIARRHEA 12-12-2014 [facility] HOLDINGS 28087 MIGRAINE 11-29-2014 [place] W/AURA W/O NEUROLOGY INTRACT W/O STATUS MIGRNOSUS 7840 HEADACHE 11-29-2014 [place] 4019 UNSPECIFIED 10-31-2014 [facility] ESSENTIAL JARRELL HYPERTENSIO HOLDINGS N 7831 ABNORMAL 10-31-2014 [facility] WEIGHT GAIN JARRELL HOLDINGS 4610 ACUTE 09-30-2014 [facility] MAXILLARY MEDICAL SINUSITIS IMAGING ASS 3899 UNSPECIFIED 09-13-2014 [place] HEARING PHYSICIAN LOSS PRACTICE L 08693 OTHER 09-13-2014 [place] DISEASES OF PHYSICIAN NASAL PRACTICE L CAVITY AND SINUSES 1121 CANDIDIASIS 08-04-2014 [facility] OF [facility] AND VAGINA 2562 POSTABLATIV 08-04-2014 [facility] E OVARIAN JARRELL FAILURE HOLDINGS 14250 UNSPECIFIED 08-04-2014 [facility] CONSTIPATIO HOLDINGS N 6101 DIFFUSE 08-04-2014 [facility] CYSTIC [facility] MASTOPATHY HOLDINGS V7231 ROUTINE 08-04-2014 [facility] GYNECOLOGIC LLC AL EXAMINATION V7612 OTHER 08-04-2014 [facility] [place] SCREENING RADIOLOGY MAMMOGRAM 8460 SPRAIN AND 07-29-2014 [place] STRAIN OF PHYSICIAN LUMBOSACRAL PRACTICE L 4550 INTERNAL 07-20-2014 [facility] HEMORRHOIDS HEALTH WITHOUT MEDICAL G MENTION COMP 5693 HEMORRHAGE 07-20-2014 [facility] OF RECTUM HEALTH AND ANUS MEDICAL G 82103 NAUSEA 07-05-2014 [place] ALONE PHYSICIAN PRACTICE L 5758 OTHER 05-29-2014 [facility] SPECIFIED [facility] P GALLBLADDER 01989 HEMATURIA 05-29-2014 [facility] UNSPECIFIED [facility] P 84289 ABDOMINAL 05-29-2014 [facility] PAIN RIGHT [facility] P QUADRANT 5990 URINARY 05-25-2014 [place] TRACT PHYSICIAN INFECTION PRACTICE L SITE NOT SPECIFIED 61558 MICROSCOPIC 05-25-2014 [place] HEMATURIA PHYSICIAN PRACTICE L 17413 INSOMNIA 05-25-2014 [place] UNSPECIFIED PHYSICIAN PRACTICE L 7881 DYSURIA 05-25-2014 [place] PHYSICIAN PRACTICE L 4871 INFLUENZA 03-10-2014 [facility] WITH OTHER MEDICAL RESPIRATORY CLINIC MANIFESTATI ONS 97990 FEVER 03-10-2014 [facility] PRESENTING MEDICAL CONDITIONS CLINIC CLASSIFIED ELSEWHERE 7862 COUGH 03-10-2014 [facility] MEDICAL CLINIC 2382 NEOPLASM OF 02-23-2014 [facility] UNCERTAIN MEDICAL BEHAVIOR OF CLINIC SKIN 38623 UNSPECIFIED 02-16-2014 [facility] VAGINITIS MEDICAL AND CLINIC VULVOVAGINI TIS 6822 CELLULITIS 02-01-2014 [facility] AND ABSCESS N EMERGENCY OF TRUNK PHYSI 6823 CELLULITIS 02-01-2014 [facility] ABSCESS N EMERGENCY OF UPPER PHYSI ARM AND FOREARM 6826 CELLULITIS 02-01-2014 [facility] ABSCESS N EMERGENCY OF LEG PHYSI EXCEPT FOOT 9953 ALLERGY 02-01-2014 [facility] UNSPECIFIED N EMERGENCY NOT PHYSI ELSEWHERE CLASSIFIED V143 PERSONAL 02-01-2014 [place] HISTORY COMMUNITY ALLERGY [facility] ANTI-INFECT RIK AGT V146 PERSONAL 02-01-2014 [place] HISTORY OF COMMUNITY ALLERGY TO HOSPITAL ANALGESIC AGENT V5869 LONG-TERM 02-01-2014 [facility] USE OF HOSPITAL OTHER MEDICATIONS 29419 GENERALIZED 10-12-2013 [facility] ANXIETY MEDICAL DISORDER CLINIC 7823 EDEMA 09-21-2013 [facility] MEDICAL CLINIC 4011 ESSENTIAL 09-10-2013 [facility] HYPERTENSIO MEDICAL N, BENIGN CLINIC 4660 ACUTE 07-07-2013 [facility] BRONCHITIS MEDICAL CLINIC 43944 WHEEZING 07-07-2013 [facility] MEDICAL CLINIC 64515 ACUTE 07-02-2013 [facility] LARYNGITIS, N EMERGENCY WITHOUT PHYSI MENTION OF OBSTRUCTIO 7841 THROAT PAIN 07-02-2013 [facility] N EMERGENCY PHYSI 3968 MULTIPLE 06-29-2013 [facility] PHYSICIAN OF Firmafon. AND AORTIC VALVES 16028 HYPERSOMNIA 06-29-2013 CHINO MOLINA MD UNSPECIFIED CONSULTING SRV 3963 MITRAL 06-28-2013 [facility] VALVE HOSPITAL INSUFF&AORT IC VALVE INSUFF 3970 DISEASES OF 06-28-2013 [facility] TRICUSPID [facility] VALVE 4299 UNSPECIFIED 06-28-2013 [facility] DISEASE 79807 OTHER 06-25-2013 [facility]YSPNEA AND [facility] RESPIRATORY ABNORMALITI ES V851 BODY MASS 06-25-2013 [facility] INDEX [facility] ADULT 7197 DIFFICULTY 06-17-2013 [facility] IN WALKING [facility] 7851 PALPITATION 06-17-2013 [facility] 7852 UNDIAGNOSED 06-17-2013 CHINO MOLINA CARDIAC [place]SULTING SRV 50148 SHORTNESS 06-17-2013 [facility] OF BREATH [facility] 71950 PRECORDIAL 06-17-2013 CHINO MOLINA PAIN CONSULTING SRV 38838 OCCLUSION&S 06-16-2013 CHINO WELLS MD CAROTID ART CONSULTING W/O SRV MENTION INFARCT 2768 HYPOPOTASSE 06-09-2013 [facility] 11276 CHEST PAIN 06-09-2013 [facility] UNSPECIFIED N EMERGENCY PHYSI 79900 NAUSEA WITH 06-09-2013 [facility] VOMITING N EMERGENCY PHYSI V145 PERSONAL 06-09-2013 [place] HISTORY OF COMMUNITY ALLERGY TO HOSPITAL NARCOTIC AGENT 87810 VENOUS 05-24-2013 [facility]ENTER[facility] OCCLUSION OF RETINA 50930 MIGRAINE 03-09-2012 [place] [facility] W/O AURA SERV W/O INTRACT FOUNDATIO W/O STAT MIGRNOSUS 18808 UNSPECIFIED 03-09-2012 [place] [facility] RETINAL SERV VASCULAR FOUNDATIO OCCLUSION 99551 ARTERIAL 03-09-2012 [place] [facility] BRANCH SERV OCCLUSION FOUNDATION OF RETINA 3689 UNSPECIFIED 03-09-2012 [place] [facility] VISUAL SERV DISTURBANCE FOUNDATIO 95508 UNSPECIFIED 03-09-2012 [place] [facility] PERIPHERAL SERV VERTIGO FOUNDATIO 81624 UNSPECIFIED 03-09-2012 [facility] ARTERY HOSPI OCCLUSION W/INFARCT 4359 UNSPECIFIED 03-09-2012 [facility] TRANSIENT SERV CEREBRAL FOUNDATIO ISCHEMIA 436 ACUTE BUT 03-09-2012 [facility] ILL-DEFINED SERV FOUNDATIO CEREBROVASC ULAR DISEASE 38867 IMPAIRMENT 03-08-2012 [facility] GONZALEZ LEVEL NOT HOSPITAL FURTHER SPECIFIED 29151 ONE EYE: 03-08-2012 JESSI MAY VISN EMERGENCY IMPAIR; OTH SERVICES EYE: VISN NOT SPEC 03376 UNSPECIFIED 03-08-2012 [facility] NEURITIS 7292 UNSPECIFIED 03-08-2012 J[facility] EMERGENCY NEURITIS SERVICES AND RADICULITIS V4989 OTHER SPEC 02-10-2012 FAMILY CONDITIONS MEDICINE INFLUENCING ASSOC HEALTH FLEMIN STATUS V8523 BODY MASS 02-10-2012 FAM[facility] INDEX MEDICINE 27.0-27.9 ASSOC ADULT FLEMIN 5920 CALCULUS OF 02-07-2012 [facility] KIDNEY MEDICINE ASSOC FLEMIN 3674 PRESBYOPIA 06-28-2011 JESSI GRE 46480 OTHER 06-14-2011 FAMILY CHRONIC MEDICINE ALLERGIC ASSOC CONJUNCTIVI FLEMIN TIS 03660 UNSPECIFIED 06-14-2011 [facility] SLEEP MEDICINE DISTURBANCE ASSOC FLEMIN V163 FAMILY 05-06-2011 [place] [facility] OF RADIOLOGY MALIGNANT ASSOCIAT NEOPLASM OF BREAST 69305 ABDOMINAL 04-26-2011 [facility] PAIN, HOSPITAL UNSPECIFIED SITE 29431 UNS 04-23-2011 [facility] GASTRITIS&G MEDICINE ASTRODUODIT ASSOC IS W/O FLEMIN MENTION HEMORR 54377 OTHER 04-23-2011 LABORATORY GENERAL & SYMPTOMS BIODIAGNOST ICS V700 ROUTINE 04-23-2011 LABORATORY GENERAL & MEDICAL BIODIAGNOST EXAM@HEALTH ICS CARE FACL 2169 BENIGN 04-09-2011 [facility] NEOPLASM OF DERMATOLOGY SKIN SITE UNSPECIFIED 86688 HEMANGIOMA 04-09-2011 [facility]ED OF SKIN AND DERMATOLOGY SUBCUTANEOU S TISSUE 78647 DYSCHROMIA, 04-09-2011 [facility] DERMATOLOGY UNSPECIFIED 04487 OTHER 03-21-2011 FAMILY DYSCHROMIA MEDICINE ASSOC FLEMIN 2112 BENIGN 03-07-2011 [facility]M [facility] [place] DUODENUM CLINIC PSC JEJUNUM AND ILEUM 4240 MITRAL 03-07-2011 [facility] VALVE [facility] DISORDERS 02473 REFLUX 03-07-2011 [facility] ESOPHAGITIS [facility] 93910 ESOPHAGEAL 03-07-2011 [facility] OLOG 89833 ACUTE 03-07-2011 [facility] WITHOUT GASTROENTER MENTION OF OLOG HEMORRHAGE 45877 OTHER 03-07-2011 [facility] DISORDER OF STOMACH AND DUODENUM 7220 DISPLCMT 02-08-2011 [place] CERV RADIOLOG[facility] INTERVERT ASSOCIAT DISC WITHOUT MYELOPATHY 7230 SPINAL 02-08-2011 [place] STENOSIS IN RADIOLOGY CERVICAL ASSOCIAT REGION 7231 CERVICALGIA 02-08-2011 [facility] 2859 UNSPECIFIED 04-03-2009 [facility] 514 PULMONARY 04-03-2009 [facility] HYPOSTASIS 6146 PELVIC 04-03-2009 PATHOLOGY & PERITONEAL CYTOLOGY ADHESIONS, LAB FEMALE 6200 FOLLICULAR 04-03-2009 PATHOLOGY & CYST OF CYTOLOGY [facility] 6202 OTHER AND 04-03-2009 PATHOLOGY & UNSPECIFIED CYTOLOGY OVARIAN LAB CYST 6250 DYSPAREUNIA 04-03-2009 [facility] 6253 DYSMENORRHE 04-03-2009 [facility] 91460 HYPOXEMIA 04-03-2009 [facility] [id number] UNSPECIFIED 03-27-2009 [facility] PRE-OPERATI VE EXAMINATION Medications Na ND [...] BE 68 09 10 15 5 00 MD Ac NZ 38 -2 -2 .0 00 L- ti ON 20 6- 0- 00 07 MA ve AT 24 20 20 51 RT AT 70 17 17 21 E 1 12 PH 10 AR 0 MA MG CY CA #5 PS 91 UL E HY 00 09 10 10 [address] 40 -2 -2 .0 00 L- ti OC 60 6- 0- 00 02 MA ve OD 12 20 20 24 RT ON 30 17 17 20 -A 1 89 PH CE AR TA MA NC CY NO PH #5 EN 91 5- 32 5 EL 00 09 10 60 30 00 MD Ac IQ 00 -1 -1 .0 00 L- ti UI 30 2- 3- 00 07 MA ve S 89 20 20 50 RT 5 42 17 17 87 MG 1 81 PH AR TA MA BL CY ET #5 91 TR 64 09 10 30 30 00 MD Ac IN 76 -1 -1 .0 00 L- ti TE 40 2- 3- 00 07 MA ve LL 75 20 20 50 RT IX 03 17 17 43 0 82 PH 20 AR MA MG CY TA #5 BL 91 ET TR 00 09 10 30 30 00 MD Ac IA 78 -1 -1 .0 00 L- ti MT 12 2- 3- 00 07 MA ve ER 07 20 20 49 RT EN 40 17 17 66 E- 1 33 PH HC AR TZ MA CY 37 .5 #5 -2 91 5 MG CP GA 65 09 10 30 30 00 MD Ac BA 16 -1 -1 .0 00 L- ti PE 20 3- 3- 00 04 MA ve NT 10 20 20 53 RT IN 15 17 17 10 0 18 PH 10 AR 0 MA MG CY CA #5 PS 91 UL E AT 68 09 10 30 30 00 MD Ac OR 64 -1 -1 .0 00 L- ti VA 50 2- 3- [address] 46 20 20 48 RT AT 05 17 17 75 IN 4 01 PH AR 40 MA CY MG #5 TA 91 BL ET QU 16 09 10 30 30 00 MD Ac ET 72 -1 -1 .0 00 [...] PO 00 08 09 90 30 00 MD Ac TA 60 -3 -2 0. 00 L- ti SS 31 0- 9- 00 07 MA ve IU 54 20 20 0 50 RT M 35 17 17 67 CL 8 80 PH AR 20 MA % CY (4 0 #5 ME 91 Q/ 15 ML HY 68 08 09 30 [address] 64 -0 -0 .0 00 [...] HY 68 07 08 30 [address] 64 -1 -0 .0 00 [...] QU 60 06 07 30 30 00 MD Ac ET 50 -3 -2 .0 00 L- ti IA 53 0- 8- 00 07 MA ve PI 13 20 20 49 RT NE 20 17 17 65 1 76 PH FU AR MA MA RA CY TE #5 50 91 MG TA B HU 00 06 07 2. 28 00 AC Ac NC 07 -1 -2 00 00 CR ti RA 43 9- 1- 0 06 ED ve 79 20 20 71 O 40 90 17 17 62 HE 2 16 AL MG TH /0 .8 GR OU ML P IN SY C RI NG E DI 00 06 07 24 30 00 MD Ac CY 52 -1 -0 0. 00 L- ti CL 70 2- 7- 00 07 MA ve OM 58 20 20 0 49 RT IN 60 17 17 30 E 1 56 PH 10 AR MA MG CY CA #5 PS 91 UL E KL 66 06 07 60 30 00 MD Ac OR 75 -1 -0 .0 00 L- ti -C 80 2- 7- 00 07 MA ve ON 19 20 20 48 RT 09 17 17 75 M2 2 04 PH 0 AR TA MA BL CY ET #5 91 AT 68 06 07 30 30 00 MD Ac OR 64 -1 -0 .0 00 L- ti VA 50 2- 7- [address] 46 20 20 48 RT AT 05 17 17 75 IN 4 01 PH AR 40 MA CY MG #5 TA 91 BL ET TR 00 06 07 30 30 00 MD Ac IA 78 -1 -0 .0 00 L- ti MT 12 2- 7- 00 07 MA ve ER 07 20 20 48 RT EN 40 17 17 75 E- 1 00 PH HC AR TZ MA CY 37 .5 #5 -2 91 5 MG CP EL 00 06 07 60 30 00 MD Ac IQ 00 -1 -0 .0 00 L- ti UI 30 2- 7- 00 07 MA ve S 89 20 20 48 RT 5 42 17 17 75 MG 1 32 PH AR TA MA BL CY ET #5 91 AM 00 05 06 20 10 00 MD Ac OX 78 -3 -3 .0 00 L- ti -C 11 0- 0- 00 07 MA ve LA 85 20 20 49 RT V 22 17 17 06 87 0 04 PH 5- AR 12 MA 5 CY MG #5 TA 91 BL ET QU 16 06 06 30 30 00 MD Ac ET 72 -0 -3 .0 00 L- ti IA 90 4- 0- 00 07 MA ve PI 14 20 20 49 RT NE 60 17 17 14 1 27 PH FU AR MA MA RA CY TE #5 50 91 MG TA B IN 31 05 06 90 27 00 MD Ac DO 72 -2 -2 .0 00 L- ti ME 20 4- 3- 00 07 MA ve TH 54 20 20 48 RT AC 20 17 17 95 IN 1 88 PH AR 25 MA CY MG #5 CA 91 PS UL E HU 00 05 06 2. 28 00 Ac NC 07 -2 -2 00 00 CR ti RA 43 4- 3- 0 06 ED ve 79 20 20 71 O 40 90 17 17 62 HE 2 16 AL MG TH /0 .8 GR OU ML P IN SY C RI NG E ES 68 05 06 30 30 00 MD Ac CI 64 -1 -0 .0 00 L- ti TA 50 1- 2- 00 07 MA ve LO 52 20 20 48 RT ME 05 17 17 74 AM 4 99 PH AR 20 MA CY MG #5 TA 91 BL ET HY 68 05 06 30 [address] 64 -1 -0 .0 00 L- ti OC 50 1- 2- 00 07 MA ve HL 51 20 20 48 RT OR 05 17 17 74 OT 4 98 PH HI AR AZ MA ID CY E 25 #5 91 MG TA B VE 23 05 06 60 30 00 MD Ac RA 15 -1 -0 .0 00 L- ti PA 50 1- 2- 00 07 MA ve NC 02 20 20 48 RT L 70 17 17 75 12 1 03 PH 0 AR MG MA CY TA BL #5 ET 91 KL 66 05 06 60 30 00 MD Ac OR 75 -1 -0 .0 00 L- ti -C 80 1- 2- 00 07 MA ve ON 19 20 20 48 RT 09 17 17 75 M2 2 04 PH 0 AR TA MA BL CY ET #5 91 HY 00 05 06 60 [address] 78 -1 -0 .0 00 L- ti OX 11 1- 2- 00 07 MA ve YC 40 20 20 48 RT HL 79 17 17 75 OR 7 02 PH OQ AR UI MA NE CY 20 #5 0 91 MG TA B TR 00 05 06 30 30 00 MD Ac IA 78 -1 -0 .0 00 [...] AT 68 05 06 30 30 00 MD Ac OR 64 -1 -0 .0 00 L- ti VA 50 1- 2- [address] 46 20 20 48 RT AT 05 17 17 75 IN 4 01 PH AR 40 MA CY MG #5 TA 91 BL ET HU 00 04 05 2. 28 00 AC Ac NC 07 -2 -1 00 00 CR ti [...] YL 15 6- 9- 00 01 ve ME 02 20 20 18 AI ED 20 [...] PA 50 0- 5- 00 01 ve NC 02 20 20 13 AI L 70 [...] ve LO 37 20 20 13 AI ME 50 17 17 32 D AM 1 [...] 1 23 PH CE AR TA MA NC CY NO PH #3 EN 93 8 [...] YL 15 0- 4- 00 01 ve ME 02 20 20 17 AI ED 20 [...] #3 TA 93 BL 8 ET ME 59 03 03 70 28 00 RI [...] ve LO 37 20 20 13 AI ME 50 17 17 32 D AM 1 59 PH AR 20 MA CY MG #3 TA 93 BL 8 ET VE 23 03 03 60 30 00 RI Ac RA 15 -1 -3 .0 00 TE ti PA 50 1- 1- 00 01 ve NC 02 20 20 13 AI L 70 [...] ve LO 37 20 20 13 AI ME 50 17 17 32 D AM 1 59 PH AR 20 MA CY MG #3 TA 93 BL 8 ET VE 23 02 03 60 30 00 RI Ac RA 15 -0 -1 .0 00 TE ti PA 50 9- 0- 00 01 ve NC 02 20 20 13 AI L 70 [...] 1 52 PH CE AR TA M NC #3 NO 91 PH 4 EN 5- 32 5 VE 23 01 02 60 30 00 RI Ac RA 15 -1 -1 .0 00 TE ti PA 50 0- 0- 00 01 ve NC 02 20 20 13 AI L 70 [...] ve LO 37 20 20 13 AI ME 50 17 17 32 D AM 1 [...] 21 09 10 FA la E 1 NC bl 15 LY e [address] UG TA BL ET TA 00 12 12 00 10 5 SO 33 No Ac NC 00 -1 -3 .0 PE 10 t ti FL 40 7- 1- 00 RS 96 Av ve U 80 20 20 ai 75 08 09 09 FA la 5 NC bl MG LY e CA DR PS UG UL E FL 00 12 12 00 1. 1 SO 33 No Ac UC 17 -2 -3 00 PE 12 t ti ON 25 1- 1- 0 RS 92 Av ve AZ 41 20 20 ai OL 21 09 09 FA la E 1 NC bl 15 LY e [address] UG TA BL ET ALEMAN 00 12 12 00 14 7 SO 33 No Ac LF 60 -1 -3 .0 PE 10 t ti AM 35 7- 1- 00 RS 97 Av ve ET 78 20 20 ai HO 12 09 09 FA la XA 8 NC bl ZO LY e LE -T DR [...] Procedure [place] [address] [address] ANGIOGRAP 7 MEDICAL HY CHEST IMAGING W/CONTRAS ASS T/NONCONT RAST RADIOLOGI [address] C 7 MEDICAL EXAMINATI IMAGING ON CHEST ASS SINGLE VIEW FRONTAL LAP 6521 [facility] REMOVAL 0 N N [facility] [email or web address] OP EPIS LAPAROSCO 6851 [facility] PICALLY 0 N N ASSISTED [facility] HYSTERECT TAWANDA Encounters Encounter Start End Date Code Location Performer Type Date [facility] - [facility] OFFICE [address] [facility]SM[facility] LUIS [facility] 7 7 [place] T [facility]ISIT PHYSICIAN 25 S MINUTES [facility] - 7 7 [facility] 7 7 [facility] 7 7 [facility] - 7 7 [facility] 7 7 [facility] - 7 7 [facility] - 7 7 [facility] - [facility] - 7 7 [facility] - 7 7 [facility] 7 7 [facility] - [facility] 7 [facility] 7 [facility] - [facility] - [facility] 6 6 [facility] [address] [facility] - 6 6 [facility] - [address] [facility] - 6 6 [facility] - 6 6 [facility] UN[facility] - [address] [facility] 6 6 [facility] - 6 6 [facility] - 6 6 [facility] - 6 6 [facility] - 5 5 [facility] [place] - 5 5 [facility] [place] - 5 5 [facility] [place] - 5 5 [facility] - 5 5 [facility] - 5 5 [facility] 5 5 [facility] [place] - 5 5 [facility] - 5 5 [facility] 5 5 [facility] [place] - 4 4 [facility] [place] [id number] 4 [facility] [place] - 4 4 [facility] [place] - 4 4 [facility] [place] - 4 4 [facility] - 4 4 [facility] [place] - 2 2 [facility] [place] - 2 2 [facility] [place] - 2 2 [facility] [address] [place] - 1 1 [facility] [address]
--- OUTSIDE RECORDS SUMMARY | 2017-02-13 14:20 | External Medical Summary Rpt | CCD ---
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 Name Role Phone [facility], Unavailable Unavailable [facility] Unavailable Unavailable CLINIC, [facility] RAY, RAY Unavailable Unavailable [facility] Unavailable Unavailable HOSPITAL, [facility] PHYSICIAN Unavailable Unavailable PRACTICE L, [facility] LUIS SMITH Unavailable Unavailable [facility] Unavailable Unavailable CENTER, [facility] [place] [facility], Unavailable Unavailable [facility], Unavailable Unavailable [facility] Unavailable Unavailable [facility], [facility]available Unavailable [facility] Unavailable Unavailable HOSPITAL, [facility], Unavailable Unavailable [facility] Unavailable Unavailable INC, [facility] Unavailable Unavailable HOSPITAL, [facility] Unavailable Unavailable HOSPITAL P, [facility] P SP[facility]ISM PHYSICIAN Unavailable Unavailable GROUP, INC[facility] Unavailable Unavailable [facility] Unavailable Unavailable GROUP PS, [facility] Unavailable Unavailable [facility], [facility] Un[facility], [facility] Un[facility], [facility] Un[facility], [facility] Unavailable Unavailable HOLDINGS, [facility], Unavailable Unavailable [facility] & Unavailable Unavailable [facility], [facility]available Unavailable [facility] Unavailable Unavailable SERVICES, [facility] Unavailable [facility]available [facility] Unavailable Unavailable MEDICAL, [facility] Unavailable Unavailable [facility], [facility], [facility] Unavailable Unavailable LAB[facility] CHINO MOLINA MD Unavailable Unavailable CONSULTING SRV, CHINO MOLINA MD CONSULTING SRV [facility], Unavailable Unavailable PLLC, [facility], [facility]OLOGY & CYTOLOGY Unavailable Unavailable LAB, PATHOLOGY & CYTOLOGY LAB ANDREZ KWAN, ANDREZ Unavailable Unavailable [id number], Unavailable Unavailable [id number] Unavailable Unavailable [facility], [facility], Unavailable Unavailable [facility] Unavailable Unavailable [facility]Y [facility], [facility] Unavailable Unavailable [facility], [facility], Unavailable Unavailable [facility] Unavailable Unavailable HOSPITALS, [facility], Unavailable Unavailable [facility] Unavailable [place] [facility] Unavailable Unavailable PHYSICIANS, [facility] PHYSICIANS [facility] Unavailable Unavailable #493, [facility] Purpose Continuity of Care Document - 03-27-2009 through 2016 Problems Code Diagnosis DOS Provider Status R05 COUGH 12-30-2016 [facility] PRACTICE L I10 ESSENTIAL 12-24-2016 [facility] P N J209 ACUTE 12-24-2016 [facility] BRONCHITIS PHYSICIANS, UNSPECIFIED [facility] R0602 SHORTNESS 12-24-2016 [facility] OF BREATH PHYSICIANS, [facility] R071 CHEST PAIN 12-24-2016 [place] [facility] R0781 PLEURODYNIA 12-24-2016 [facility] R091 PLEURISY 12-24-2016 [facility], 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 [place] INFARCTION [facility] UNSPECIFIED PHYSICIANS M069 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 [place] ARTHRITIS [facility] UNSPECIFIED PHYSICIANS Z09 ENC F/U 12-19-2016 [facility] EXAM AFTR HEALTHCARE CMPL TX OT HOSPITALS THAN MALIG NEOPLSM M38266 PERSONAL 12-19-2016 HISTORY OT HEALTHCARE VENOUS HOSPITALS THROMBOSIS& EMBOLISM [id number] SPONDYLOSIS 10-21-2016 W/O HEALTHCARE MYELOPATH/R HOSPITALS ADICULOPATH Y CERV RGN M791 MYALGIA 10-21-2016 HEALTHCARE HOSPITALS M0579 RA 10-09-2016 [facility] W/RHEUMATOI SERV D FCT MX FOUNDATION SITE W/O ORGAN/SYS INVLV M797 FIBROMYALGI 10-09-2016 [facility] A SERV [facility] R69432 OTHER LONG 10-09-2016 [facility] TERM SERV CURRENT FOUNDATION DRUG THERAPY R51 HEADACHE 10-04-2016 [facility] D6859 OTHER 09-09-2016 [place] PRIMARY OF ME THROMBOPHIL PHYSICIANS IA R635 ABNORMAL 09-09-2016 [place] WEIGHT GAIN OF ME PHYSICIANS Z8673 PERSONAL HX 09-09-2016 [place] TIA & OF ME CEREB PHYSICIANS INFARCT NO RESID DEFICIT J0190 ACUTE 08-27-2016 [facility] SINUSITIS PHYSICIAN UNSPECIFIED PRACTICE L 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-2016 CURRENT USE [facility]ALTHCARE OF HOSPITALS ANTICOAGULA NTS G96693 PERSONAL 08-14-2016 HISTORY OF HEALTHCARE PULMONARY HOSPITALS EMBOLISM E237 DISORDER OF 08-12-2016 [facility] PITUITARY SERV GLAND FOUNDATION UNSPECIFIED R56476 CHRONIC 08-12-2016 [facility] EMBO THROMB SERV UNS DEEP FOUNDATION VEINS UNS LOW EXT M059 RA WITH 08-12-2016 [facility] RHEUMATOID SERV FACTOR FOUNDATION UNSPECIFIED E039 HYPOTHYROID 07-30-2016 [facility] ISM [facility] UNSPECIFIED HOLDINGS H8113 BENIGN 07-24-2016 [facility] PAROXYSMAL PHYSICIAN VERTIGO PRACTICE L BILATERAL R1031 RIGHT LOWER 07-10-2016 [facility] [place] [facility] PAIN R1032 LEFT LOWER 07-10-2016 [facility] N EMERGENCY PAIN PHYS R110 NAUSEA 07-10-2016 [facility] RADIOLOGY G8918 OTHER ACUTE 06-26-2016 [facility], POSTPROCEDU PLLC RAL PAIN R1012 LEFT UPPER 06-26-2016 [facility] PAIN INC R1084 GENERALIZED 06-26-2016 [place] ABDOMINAL [facility]ICAL PAIN IMAGING ASS R109 UNSPECIFIED 06-26-2016 [facility] ABDOMINAL PHYSICIANS, PAIN PLLC D121 BENIGN 06-25-2016 [facility] NEOPLASM OF PHYSICIAN APPENDIX PRACTICE L E079 DISORDER OF 06-25-2016 [facility] THYROID COMM[facility]ITY UNSPECIFIED HOSPITAL K219 GASTRO-ESOP 06-25-2016 [facility] H [facility] DISEASE HOSPITAL WITHOUT ESOPHAGITIS K3580 UNSPECIFIED 06-25-2016 [place] ACUTE ANESTHESIA APPENDICITI GROUP PS S Q430 MECKELS 06-25-2016 [place] DIVERTICULU PHYSICIAN M DISPLACED PRACTICE L HYPERTROPHI C R1030 LOWER 06-25-2016 [place] ABDOMINAL COMMUNITY PAIN HOSPITAL UNSPECIFIED E236 OTHER 06-13-2016 [facility] DISORDERS [facility] OF HOSPITALS PITUITARY GLAND E669 OBESITY 06-13-2016 [place] [facility] UNSPECIFIED SERV FOUNDATION R5383 OTHER 06-13-2016 [facility] K529 NONINFECTIV 06-05-2016 [facility]ino DIGESTIVE GASTROENTER CARE CENTER ITIS & COLITIS UNS K582 MIXED 06-05-2016 [facility] IRRITABLE DIGESTIVE BOWEL CARE CENTER SYNDROME N816 RECTOCELE 06-05-2016 [facility] DIGESTIVE [facility]ARE CENTER R112 NAUSEA WITH 05-16-2016 [facility] [place] [facility] UNSPECIFIED X98850 ACUTE EMBO 04-26-2016 [facility] THROMB UNS HEALTHCARE DEEP VEINS HOSPITALS UNS LOW EXTREM K2980 DUODENITIS 04-19-2016 [facility] WITHOUT DIGESTIVE BLEEDING CARE CENTER K635 POLYP OF 04-19-2016 [place] COLON ANESTHESIA GROUP PS K648 OTHER 04-19-2016 [facility] HEMORRHOIDS DIGESTIVE CARE CENTER Z8719 PERSONAL 04-19-2016 [facility] HISTORY DIGESTIVE OTHER CARE CENTER DISEASES DIGESTIVE SYSTEM Z7902 SHELTER 04-15-2016 [place] CURR USE COMM[facility]ITY ANTITHROMBO HOSPITAL TICS/ANTIPL ATELETS Z888 ALLERGY 04-15-2016 [place] STATUS OT COMMUNITY RX MEDS & HOSPITAL BIOLOG SUBSTANC STS T82860 LATEX 04-15-2016 [place] ALLERGY COMM[facility]ITY STATUS HOSPITAL N200 CALCULUS OF 04-13-2016 [place] [facility] M0600 RA WITHOUT 02-29-2016 [facility] RHEUMATOID SERV FACTOR FOUNDATION UNSPECIFIED SITE D352 BENIGN 02-08-2016 [place] NEOPLASM OF PHYSICIAN PITUITARY PRACTICE L GLAND R2689 OTHER 02-08-2016 [place] ABNORMALITI PHYSICIAN ES OF GAIT PRACTICE L AND MOBILITY G08 INTRACRANL 02-06-2016 [facility] & SERV INTRASPINL FOUNDATION PHLEBIT & THROMBOPHLE BIT I340 NONRHEUMATI 02-06-2016 [place] [facility] C MITRAL SERV VALVE FOUNDATION INSUFFICIEN CY I351 NONRHEUMATI 02-06-2016 [place] [facility] C AORTIC SERV VALVE FOUNDATION INSUFFICIEN CY I358 OTHER 02-06-2016 [facility] MEDICAL NONRHEUMATI SERV C AORTIC FOUNDATION VALVE DISORDERS I517 CARDIOMEGAL 02-06-2016 [place] [facility] Y SERV [facility]OUNDATION N179 ACUTE 02-06-2016 [place] [facility] KIDNEY SERV FAILURE FOUNDATION UNSPECIFIED N189 CHRONIC 02-06-2016 [facility] KIDNEY SERV DISEASE FOUNDATION UNSPECIFIED R791 ABNORMAL 02-06-2016 [facility] COAGULATION SERV PROFILE FOUNDATION D689 COAGULATION 02-05-2016 [facility] DEFECT SERV UNSPECIFIED FOUNDATION A78602 MIGRAINE 02-05-2016 [facility] W/AURA NOT SERV INTRACT W/O FOUNDATION STAT MIGRAINOSUS H538 OTHER 02-05-2016 [place] VISUAL MEDICAL DISTURBANCE IMAGING ASS S H5442 BLINDNESS 02-05-2016 [facility] LEFT EYE SERV NORMAL FOUNDATION VISION RIGHT EYE N50762 CEREBRAL 02-05-2016 [facility] INFARCT D/T PHYSICIANS, EMBOLISM PLLC LT POST CERBRL ART R9402 ABNORMAL 02-05-2016 [facility] BRAIN SCAN SERV FOUNDATION H6983 OTHER SPEC 01-25-2016 [place] DISORDERS PHYSICIAN EUSTACHIAN PRACTICE L TUBE BILAT I889 NONSPECIFIC 01-25-2016 [place] PHYSICIAN LYMPHADENIT PRACTICE L IS UNSPECIFIED H6501 ACUTE 01-20-2016 [facility] SEROUS PHYSICIANS, OTITIS PLLC MEDIA RIGHT EAR L049 ACUTE 01-20-2016 [facility] LYMPHADENIT PHYSICIANS, IS PLLC UNSPECIFIED M5481 OCCIPITAL 01-17-2016 [facility] [facility] V54907 PAIN IN 12-07-2015 [place] RIGHT LEG MEDICAL IMAGING ASS H9313 TINNITUS 12-06-2015 [place] BILATERAL PHYSICIAN PRACTICE L H938X1 OTHER 12-06-2015 [place] SPECIFIED PHYSICIAN DISORDERS PRACTICE L OF RIGHT EAR M2550 PAIN IN 11-21-2015 [facility] JOINT Z0000 ENCOUNTER 11-21-2015 [facility] MED EXAM W/O ABNORMAL FIND P52403 PAIN IN 11-16-2015 [facility] LEFT FOOT RADIOLOGY Z5181 ENCOUNTER 09-14-2015 [facility] FOR SERV THERAPEUTIC FOUNDATION DRUG LEVEL MONITORING I2699 OTH 09-13-2015 [facility] PUL[facility]ARY [facility] EMBOLISM INC W/O ACUTE COR PULMONALE J988 OTHER 08-14-2015 [place] SPECIFIED PHYSICIAN RESPIRATORY PRACTICE L DISORDERS L259 UNSPECIFIED 08-04-2015 [place] CONTACT PHYSICIAN DERMATITIS PRACTICE L UNSPECIFIED CAUSE K625 HEMORRHAGE 2015 [place] OF ANUS AND PHYSICIAN RECTUM PRACTICE L R7989 OTHER SPEC 07-11-2015 [facility] ABNORMAL PHYSICIANS, FINDINGS PLLC BLOOD CHEMISTRY T27399 MIGRAINE 07-10-2015 [place] W/O AURA REGIONAL NOT INTRACT MEDICAL W/O STAT MIGRAIN G930 CEREBRAL 07-10-2015 [place] [facility]STS RADIOLOG[facility] ASSOCIAT H8120 VESTIBULAR 07-10-2015 [place] NEURONITIS REGIONAL UNSPECIFIED MEDICAL EAR R42 DIZZINESS 07-10-2015 [place] AND REGIONAL GIDDINESS MEDICAL R6889 OTHER 07-10-2015 [place] GENERAL REGIONAL SYMPTOMS MEDICAL AND SIGNS R899 UNS ABNORM 06-15-2015 [facility] SPEC FROM OTH ORGN SYS & TISS H903 SENSORINEUR 06-14-2015 [facility] AL HEARING PHYSICIAN LOSS PRACTICE L BILATERAL J0100 ACUTE 05-23-2015 [place] MAXILLARY PHYSICIAN SINUSITIS PRACTICE L UNSPECIFIED P03713 KERATOCONJU 05-19-2015 [facility] K[facility]AN NCTIVITIS SICCA NOT SJOGREN BILATERAL H109 UNSPECIFIED 05-10-2015 [facility] TIS M461 SACROILIITI 05-01-2015 [facility] S NOT MEM HOSP ELSEWHERE INC CLASSIFIED M545 LOW BACK 05-01-2015 [facility] PAIN MEM HOSP INC H524 PRESBYOPIA 04-17-2015 AND[facility] KWAN M5442 LUMBAGO 04-13-2015 [place] [facility] WITH SCIATICA LEFT SIDE K5900 CONSTIPATIO 04-06-2015 [place] N PHYSICIAN UNSPECIFIED PRACTICE L R0789 OTHER CHEST 03-18-2015 [facility] PAIN PHYSICIANS, [facility] R079 CHEST PAIN 03-18-2015 [place] UNSPECIFIED MEDICAL IMAGING ASS R946 ABNORMAL 03-07-2015 [facility] RESULTS OF PHYSICIAN THYROID PRACTICE L FUNCTION STUDIES Z202 CONTACT 03-07-2015 [place] WITH PHYSICIAN EXPOSURE PRACTICE L INFECT SEXUAL MODE TRANSMS I2609 OTHER 02-03-2015 [facility]ITAL W/ACUTE COR PULMONALE A048 OTHER 01-23-2015 [facility] SPE[facility]IAN BACTERIAL PRACTICE L INTESTINAL INFECTIONS R1013 EPIGASTRIC 01-19-2015 [facility] HEALTH MEDICAL G R001 BRADYCARDIA 01-18-2015 [place] UNSPECIFIED CLINIC PSC R072 PRECORDIAL 01-18-2015 [facility] [place] PAIN RADIOLOGY 7804 DIZZINESS 12-19-2014 [facility] GIDDINESS INC V571 OTHER 12-19-2014 [facility] PHYSICAL [facility] THERAPY INC 52965 UNSPECIFIED 12-14-2014 [place] MENIERES PHYSICIAN DISEASE PRACTICE L 20692 VESTIBULAR 12-14-2014 [place] NEURONITIS PHYSICIAN PRACTICE L 74493 UNSPECIFIED 12-14-2014 [place] TINNITUS PHYSICIAN PRACTICE L 99354 SENSORINEUR 12-14-2014 [place] AL HEARING PHYSICIAN LOSS PRACTICE L BILATERAL 470 DEVIATED 12-14-2014 [place] NASAL PHYSICIAN SEPTUM PRACTICE L 4779 ALLERGIC 12-14-2014 [place] RHINITIS PHYSICIAN CAUSE PRACTICE L UNSPECIFIED 32276 OTH 12-14-2014 [place] SYMPTOMS PHYSICIAN INVLV PRACTICE L NERV&MUSCUL OSKELETAL SYSTEMS 2449 UNSPECIFIED 12-12-2014 [facility] HYPOTHYROID HOLDINGS ISM 94259 DIARRHEA 12-12-2014 [facility] HOLDINGS 95281 MIGRAINE 11-29-2014 [place] W/AURA W/O NEUROLOGY INTRACT W/O STATUS MIGRNOSUS 7840 HEADACHE 11-29-2014 [facility] 4019 UNSPECIFIED 10-31-2014 [facility] ESSENTIAL JARRELL HYPERTENSIO HOLDINGS N 7831 ABNORMAL 10-31-2014 [facility] WEIGHT GAIN JARRELL HOLDINGS 4610 ACUTE 09-30-2014 [place] MAXILLARY MEDICAL SINUSITIS IMAGING ASS 3899 UNSPECIFIED 09-13-2014 [place] HEARING PHYSICIAN LOSS PRACTICE L 14028 OTHER 09-13-2014 [place] DISEASES OF PHYSICIAN NASAL PRACTICE L CAVITY AND SINUSES 1121 CANDIDIASIS 08-04-2014 [facility] AND [facility] 2562 POSTABLATIV 08-04-2014 [facility] E OVARIAN JARRELL FAILURE HOLDINGS 44120 UNSPECIFIED 08-04-2014 [facility] CONSTIPATIO HOLDINGS N 6101 DIFFUSE 08-04-2014 [facility] CYSTIC J[facility] MASTOPATHY HOLDINGS V7231 ROUTINE 08-04-2014 [facility] AL EXAMINATION V7612 OTHER 08-04-2014 [facility] [place] SCREENING RADIOLOGY MAMMOGRAM 8460 SPRAIN AND 07-29-2014 [place] STRAIN OF PHYSICIAN LUMBOSACRAL PRACTICE L 4550 INTERNAL 07-20-2014 [facility] HEMORRHOIDS HEALTH WITHOUT MEDICAL G MENTION COMP 5693 HEMORRHAGE 07-20-2014 [facility] OF [facility] AND ANUS MEDICAL G 49852 NAUSEA 07-05-2014 [place] ALONE PHYSICIAN PRACTICE L 5758 OTHER 05-29-[address] [facility] P GALLBLADDER 11438 HEMATURIA 05-29-2014 [facility] UNSPECIFIED [facility] P 40383 ABDOMINAL 05-29-2014 [facility] PAIN RIGHT [facility] P QU[facility] 5990 URINARY 05-25-2014 [place] TRACT PHYSICIAN INFECTION PRACTICE L SITE NOT SPECIFIED 70872 MICROSCOPIC 05-25-2014 [facility] HEMAT[facility] PHYSICIAN PRACTICE L 47015 INSOMNIA 05-25-2014 [place] UNSPECIFIED PHYSICIAN PRACTICE L 7881 DYSURIA 05-25-2014 [facility] PH[facility]ACT[facility] L 4871 INFLUENZA 03-10-2014 [facility] WITH OTHER MEDICAL RESPIRATORY CLINIC MANIFESTATI ONS 33312 FEVER 03-10-2014 [facility] PRESENTING MEDICAL CONDITIONS CLINIC CLASSIFIED ELSEWHERE 7862 COUGH 03-10-2014 [facility] MEDICAL CLINIC 2382 NEOPLASM OF 02-23-2014 [facility] UNCERTAIN MEDICAL BEHAVIOR OF CLINIC SKIN 76330 UNSPECIFIED 02-16-2014 [facility] VAGINITIS MEDICAL AND CLINIC VULVOVAGINI TIS 6822 CELLULITIS 02-01-2014 [facility] AND ABSCESS N EMERGENCY OF TRUNK PHYSI 6823 CELLULITIS 02-01-2014 [facility] ABSCESS N EMERGENCY OF UPPER PHYSI ARM AND FOREARM 6826 CELLULITIS 02-01-2014 [facility] ABSCESS N EMERGENCY OF LEG PHYSI EXCEPT FOOT 9953 ALLERGY 02-01-2014 [facility] UNSPECIFIED N EMERGENCY NOT PHYSI ELSEWHERE CLASSIFIED V143 PERSONAL 02-01-2014 [place] HISTORY COMMUNITY ALLERGY [facility] ANTI-INFECT RIK AGT V146 PERSONAL 02-01-2014 [place] HISTORY OF [facility] ALLERGY TO HOSPITAL ANALGESIC AGENT V5869 LONG-TERM 02-01-2014 [facility] USE OF HOSPITAL OTHER MEDICATIONS 32907 GENERALIZED 10-12-2013 [facility] ANXIETY MEDICAL DISORDER CLINIC 7823 EDEMA 09-21-2013 [facility] MEDICAL CLINIC 4011 ESSENTIAL 09-10-2013 [facility] HYPERTENSIO MEDICAL N, BENIGN CLINIC 4660 ACUTE 07-07-2013 [facility] BRONCHITIS MEDICAL CLINIC 74319 WHEEZING 07-07-2013 [facility] MEDICAL CLINIC 40663 ACUTE 07-02-2013 [facility] LARYNGITIS, N EMERGENCY WITHOUT PHYSI MENTION OF OBSTRUCTIO 7841 THROAT PAIN 07-02-2013 [facility] N EMERGENCY PHYSI 3968 MULTIPLE 06-29-2013 [facility] PHYSICIAN OF [employer] AND AORTIC VALVES 48904 HYPERSOMNIA 06-29-2013 CHINO MOLINA MD UNSPECIFIED CONSULTING SRV 3963 MITRAL 06-28-2013 [facility] INSUFF&AORT IC VALVE INSUFF 3970 DISEASES OF 06-28-2013 [facility] TRICUSPID [facility] VALVE 4299 UNSPECIFIED 06-28-2013 [facility] HEART [facility] DISEASE 12941 OTHER 06-25-2013 [facility] DYSPNE[facility] AND [facility] HOSPITAL RESPIRATORY ABNORMALITI ES V851 BODY MASS 06-25-2013 [facility] ADULT 7197 DIFFICULTY 06-17-2013 [facility] 7851 PALPITATION 06-17-2013 [facility] 7852 UNDIAGNOSED 06-17-2013 CHINO MOLINA [place]V 63171 SHORTNESS 06-17-2013 [facility] 56407 PRECORDIAL 06-17-2013 CHINO DICK MD CONSULTING SRV 91299 OCCLUSION&S 06-16-2013 CHINO WELLS MD CAROTID ART CONSULTING W/O SRV MENTION INFARCT 2768 HYPOPOTASSE 06-09-2013 [facility] 59627 CHEST PAIN 06-09-2013 [facility] UNSPECIFIED N EMERGENCY PHYSI 85817 NAUSEA WITH 06-09-2013 [facility] VOMITING N EMERGENCY PHYSI V145 PERSONAL 06-09-2013 [facility] HISTORY OF COMMUNITY ALLERGY TO HOSPITAL NARCOTIC AGENT 40449 VENOUS 05-24-2013 [facility] OCCLUSION OF RETINA 49018 MIGRAINE 03-09-2012 [facility] W/O AURA SERV W/O INTRACT FOUNDATIO W/O STAT MIGRNOSUS 39797 UNSPECIFIED 03-09-2012 [facility] RETINAL SERV VASCULAR FOUNDATIO OCCLUSION 07501 ARTERIAL 03-09-2012 [facility] BRANCH SERV OCCLUSION FOUNDATION OF RETINA 3689 UNSPECIFIED 03-09-2012 [facility] VISUAL SERV DISTURBANCE FOUNDATIO 01311 UNSPECIFIED 03-09-2012 [facility] PERIPHERAL SERV VERTIGO FOUNDATIO 88612 UNSPECIFIED 03-09-2012 [facility] ARTERY HOSPI OCCLUSION W/INFARCT 4359 UNSPECIFIED 03-09-2012 [facility] TRANSIENT SERV CEREBRAL FOUNDATIO ISCHEMIA 436 ACUTE BUT 03-09-2012 [facility] ILL-DEFINED SERV FOUNDATIO CEREBROVASC ULAR DISEASE 57492 IMPAIRMENT 03-08-2012 [facility] LEVEL NOT HOSPITAL FURTHER SPECIFIED 93374 ONE EYE: 03-08-2012 [facility] VISN EMERGENCY IMPAIR; OTH SERVICES EYE: VISN NOT SPEC 21967 UNSPECIFIED 03-08-2012 [facility] HOSPITAL NEURITIS 7292 UNSPECIFIED 03-08-2012 [facility] NEURITIS SERVICES AND RADICULITIS V4989 OTHER SPEC 02-10-2012 FAM[facility] CONDITIONS MEDICINE INFLUENCING ASSOC HEALTH FLEMIN STATUS V8523 BODY MASS 02-10-2012 [facility] INDEX MEDICINE 27.0-27.9 ASSOC ADULT FLEMIN 5920 CALCULUS OF 02-07-2012 [facility] KIDNEY MEDICINE ASSOC FLEMIN 3674 PRESBYOPIA 06-28-2011 [facility] GRE 48159 OTHER 06-14-2011 [facility] CHRONIC MEDICINE ALLERGIC ASSOC CONJUNCTIVI FLEMIN TIS 61607 UNSPECIFIED 06-14-2011 [facility] SLEEP MEDICINE DISTURBANCE ASSOC FLEMIN V163 FAMILY 05-06-2011 [place] [facility] OF RADIOLOGY MALIGNANT ASSOCIAT NEOPLASM OF BREAST 93025 ABDOMINAL 04-26-2011 [facility] PAIN, HOSPITAL UNSPECIFIED SITE 81837 UNS 04-23-2011 [facility] GASTRITIS&G MEDICINE ASTRODUODIT ASSOC IS W/O FLEMIN MENTION HEMORR 86775 OTHER 04-23-2011 LABORAT[facility] GENERAL & SYMPTOMS BIODIAGNOST ICS V700 ROUTINE 04-23-2011 LAB[facility]AT[facility] GENERAL & MEDICAL BIODIAGNOST [email or web address]@HEALTH ICS CARE FACL 2169 BENIGN 04-09-2011 [facility] OF DERMATOLOGY SKIN SITE UNSPECIFIED 22413 HEMANGIOMA 04-09-2011 [facility] OF SKIN AND DERMATOLOGY SUBCUTANEOU S TISSUE 63211 DYSCHROMIA, 04-09-2011 [facility] D[facility]MATOLOG[facility] UNSPECIFIED 01517 OTHER 03-21-2011 [facility] DYSCHROMIA MEDICINE ASSOC FLEMIN 2112 BENIGN 03-07-2011 [facility] [place] JEJUNUM AND ILEUM 4240 MITRAL 03-07-2011 [facility] DISORDERS 36436 REFLUX 03-07-2011 [facility] 89847 ESOPHAGEAL 03-07-2011 [facility] OLOG 63883 ACUTE 03-07-2011 [facility] WITHOUT GASTROENTER MENTION OF OLOG HEMORRHAGE 74004 OTHER 03-07-2011 [facility] DISORDER OF STOMACH AND DUODENUM 7220 DISPLCMT 02-08-2011 [facility] INTERVERT [facility] DISC WITHOUT MYELOPATHY 7230 SPINAL 02-08-2011 [facility] CERVICAL ASSOCIAT REGION 7231 CERVICALGIA 02-08-2011 [facility] 2859 UNSPECIFIED 04-03-2009 [facility] 514 PULMONARY 04-03-2009 [facility] HYPOSTASIS 6146 PELVIC 04-03-2009 PATHOLOGY & PERITONEAL CYTOLOGY ADHESIONS, LAB FEMALE 6200 FOLLICULAR 04-03-2009 PATHOLOGY & CYST OF CYTOLOGY [facility] LAB 6202 OTHER AND 04-03-2009 PATHOLOGY & UNSPECIFIED CYTOLOGY OVARIAN LAB CYST 6250 DYSPAREUNIA 04-03-2009 [facility] 6253 DYSMENORRHE 04-03-2009 [facility] 14119 HYPOXEMIA 04-03-2009 [facility] V7284 UNSPECIFIED 03-27-2009 [facility] PRE-OPERATI VE EXAMINATION Medications Na ND [...] -1 00 #5 91 MG /5 ML HY 00 09 10 [address] 40 -2 -2 .0 00 L- ti OC 60 6- 0- 00 02 MA ve OD 12 20 20 24 RT ON 30 17 17 20 -A 1 89 PH CE AR TA MA TX CY NO PH #5 EN 91 5- 32 5 AZ 68 09 10 6. 5 00 WA Ac IT 18 -2 -2 00 00 L- ti HR 00 6- 0- 0 07 MA ve OM 16 20 20 51 RT YC 00 17 17 21 IN 6 11 PH AR 25 MA 0 CY MG #5 TA 91 BL ET BE 68 09 10 15 5 00 WA Ac NZ 38 -2 -2 .0 00 L- ti ON 20 6- 0- 00 07 MA ve AT 24 20 20 51 RT AT 70 17 17 21 E 1 12 PH 10 AR 0 MA MG CY CA #5 PS 91 UL E XE 00 09 10 60 30 00 AC Ac LJ 06 -2 -2 .0 00 CR ti AN 91 9- 0- 00 06 ED ve Z 00 20 20 88 O 5 10 17 17 91 HE MG 1 67 AL TH TA BL GR ET OU P IN C AT 68 09 10 30 30 00 WA Ac OR 64 -1 -1 .0 00 L- ti VA 50 2- 3- [address] 46 20 20 48 RT AT 05 17 17 75 IN 4 01 PH AR 40 MA CY MG #5 TA 91 BL ET QU 16 09 10 30 30 00 WA Ac ET 72 -1 -1 .0 00 L- ti IA 90 3- 3- 00 07 MA ve PI 14 20 20 50 RT NE 80 17 17 94 1 39 PH FU AR MA MA RA CY TE #5 20 91 0 MG TA B EL 00 09 10 60 30 00 UT Ac IQ 00 -1 -1 .0 00 L- ti UI 30 2- 3- 00 07 MA ve S 89 20 20 50 RT 5 42 17 17 87 MG 1 81 PH AR TA MA BL CY ET #5 91 TR 64 09 10 30 30 00 UT Ac IN 76 -1 -1 .0 00 L- ti TE 40 2- 3- 00 07 MA ve LL 75 20 20 50 RT IX 03 17 17 43 0 82 PH 20 AR MA MG CY TA #5 BL 91 ET TR 00 09 10 30 30 00 [facility] IA 78 -1 -1 .0 00 L- ti MT 12 2- 3- 00 07 MA ve ER 07 20 20 49 RT EN 40 17 17 66 E- 1 33 PH HC AR TZ MA CY 37 .5 #5 -2 91 5 MG CP GA 65 09 10 30 30 00 [facility] BA 16 -1 -1 .0 00 L- ti PE 20 3- 3- 00 04 MA ve NT 10 20 20 53 RT IN 15 17 17 10 0 18 PH 10 AR 0 MA MG CY CA #5 PS 91 UL E HY 68 09 10 30 [address] 64 -1 -0 .0 00 L- ti OC 50 0- 6- 00 07 MA ve HL 51 20 20 49 RT OR 05 17 17 78 OT 4 52 PH HI AR AZ MA ID CY E 25 #5 91 MG TA B PO 00 08 09 90 30 00 [facility] TA 60 -3 -2 0. 00 L- ti SS 31 0- 9- 00 07 MA ve IU 54 20 20 0 50 RT M 35 17 17 67 CL 8 80 PH AR 20 MA % CY (4 0 #5 ME 91 Q/ 15 ML HY 68 08 09 30 [address] 64 -0 -0 .0 00 [...] EL 00 07 08 60 30 00 UT Ac IQ 00 -2 -1 .0 00 L- ti UI 30 1- 8- 00 07 MA ve S 89 20 20 48 RT 5 42 17 17 75 MG 1 32 PH AR TA MA BL CY ET #5 91 KL 66 07 08 12 30 00 [...] CY MG #5 TA 91 BL ET GA 53 07 08 30 30 00 WA Ac BA 74 -1 -0 .0 00 L- ti PE 60 2- 4- 00 04 MA ve NT 10 20 20 53 RT IN 10 17 17 10 5 18 PH 10 AR 0 MA MG CY CA #5 PS 91 UL E HY 68 07 08 30 [address] 64 -1 -0 .0 00 L- ti OC 50 0- 4- 00 07 MA ve HL 51 20 20 49 RT OR 05 17 17 78 OT 4 52 PH HI AR AZ MA ID CY E 25 #5 91 MG TA B QU 60 06 07 30 30 00 WA Ac ET 50 -3 -2 .0 00 L- ti IA 53 0- 8- 00 07 MA ve PI 13 20 20 49 RT NE 20 17 17 65 1 76 PH FU AR MA MA RA CY TE #5 50 91 MG TA B HU 00 06 07 2. 28 00 AC Ac TX 07 -1 -2 00 00 CR ti RA 43 9- 1- 0 06 ED ve 79 20 20 71 O 40 90 17 17 62 HE 2 16 AL MG TH /0 .8 GR OU ML P IN SY C RI NG E KL 66 06 07 60 30 00 WA Ac OR 75 -1 -0 .0 00 L- ti -C 80 2- 7- 00 07 MA ve ON 19 20 20 48 RT 09 17 17 75 M2 2 04 PH 0 AR TA MA BL CY ET #5 91 AT 68 06 07 30 30 00 UT Ac OR 64 -1 -0 .0 00 L- ti VA 50 2- 7- [address] 46 20 20 48 RT AT 05 17 17 75 IN 4 01 PH AR 40 MA CY MG #5 TA 91 BL ET EL 00 06 07 60 30 00 UT Ac IQ 00 -1 -0 .0 00 L- ti UI 30 2- 7- 00 07 MA ve S 89 20 20 48 RT 5 42 17 17 75 MG 1 32 PH AR TA MA BL CY ET #5 91 TR 00 07 30 30 00 UT Ac IA 78 -1 -0 .0 00 L- ti MT 12 2 7- 00 07 MA ve ER 07 20 20 48 RT EN 40 17 17 75 E- 1 00 PH HC AR TZ MA CY 37 .5 #5 -2 91 5 MG CP DI 00 07 24 30 00 UT Ac CY 52 -1 -0 0. 00 L- ti CL 70 2- 7- 00 07 MA ve OM 58 20 20 0 49 RT IN 60 17 17 30 E 1 56 PH 10 AR MA MG CY CA #5 PS 91 UL E AM 00 05 06 20 10 00 UT Ac OX 78 -3 -3 .0 00 L- ti -C 11 0- 0- 00 07 MA ve LA 85 20 20 49 RT V 22 17 17 06 87 0 04 PH 5- AR 12 MA 5 CY MG #5 TA 91 BL ET QU 16 09 03 30 30 00 UT Ac ET 72 -0 -3 .0 00 L- ti IA 90 4- 0- 00 07 MA ve PI 14 20 20 49 RT NE 60 17 17 14 1 27 PH FU AR MA MA RA CY TE #5 50 91 MG TA B IN 31 05 06 90 27 00 UT Ac DO 72 -2 -2 .0 00 L- ti ME 20 4- 3- 00 07 MA ve TH 54 20 20 48 RT AC 20 17 17 95 IN 1 88 PH AR 25 MA CY MG #5 CA 91 PS UL E HU 00 05 06 2. 28 00 AC Ac TX 07 -2 -2 00 00 CR ti RA 43 4- 3- 0 06 ED ve 79 20 20 71 O 40 90 17 17 62 HE 2 16 AL MG TH /0 .8 GR OU ML P IN SY C RI NG E TR 00 05 06 30 30 00 UT Ac IA 78 -1 -0 .0 00 [...] AT 68 05 06 30 30 00 WA Ac OR 64 -1 -0 .0 00 L- ti VA 50 1- 2- [address] 46 20 20 48 RT AT 05 17 17 75 IN 4 01 PH AR 40 MA CY MG #5 TA 91 BL ET ES 68 05 06 30 30 00 WA Ac CI 64 -1 -0 .0 00 L- ti TA 50 1- 2- 00 07 MA ve LO 52 20 20 48 RT MD 05 17 17 74 AM 4 99 PH AR 20 MA CY MG #5 TA 91 BL ET HY 68 05 06 30 [address] 64 -1 -0 .0 00 L- ti OC 50 1- 2- 00 07 MA ve HL 51 20 20 48 RT OR 05 17 17 74 OT 4 98 PH HI AR AZ MA ID CY E 25 #5 91 MG TA B VE 23 05 06 60 30 00 WA Ac RA 15 -1 -0 .0 00 L- ti PA 50 1- 2- 00 07 MA ve TX 02 20 20 48 RT L 70 17 17 75 12 1 03 PH 0 AR MG MA CY TA BL #5 ET 91 KL 66 05 06 60 30 00 WA Ac OR 75 -1 -0 .0 00 L- ti -C 80 1- 2- 00 07 MA ve ON 19 20 20 48 RT 09 17 17 75 M2 2 04 PH 0 AR TA MA BL CY ET #5 91 HY 00 05 06 60 [address] 78 -1 -0 .0 00 L- ti OX 11 1- 2- 00 07 MA ve YC 40 20 20 48 RT HL 79 17 17 75 OR 7 02 PH OQ AR UI MA NE CY 20 #5 0 91 MG TA B HU 00 04 05 2. 28 00 AC Ac TX 07 -2 -1 00 00 CR ti [...] YL 15 6- 9- 00 01 ve MD 02 20 20 18 AI ED 20 [...] TA CY BL ET #3 93 8 VE 23 04 05 60 30 00 RI Ac RA 15 -1 -0 .0 00 TE ti PA 50 0- 5- 00 01 ve TX 02 20 20 13 AI L 70 [...] ve LO 37 20 20 13 AI MD 50 17 17 32 D AM 1 [...] #3 -2 93 5 8 MG CP AT 60 04 05 30 30 00 [...] CY ET #3 93 8 PO 00 04 04 60 30 00 [...] 1 23 PH CE AR TA MA TX CY NO PH #3 EN 93 8 5- 32 5 ME 00 03 04 21 6 00 RI Ac TH 78 -2 -1 .0 00 TE ti YL 15 0- 4- 00 01 ve MD 02 20 20 17 AI ED 20 [...] #3 IN 93 BLAND 8 LE R LE 65 03 04 5. 5 00 RI Ac VO 86 -2 -1 00 00 TE ti FL 20 0- 4- 0 01 ve OX 53 20 20 17 AI AC 82 17 17 61 D IN 0 04 PH AR 75 MA 0 CY MG #3 TA 93 BL 8 ET AT 60 03 04 30 30 00 [...] ve LO 37 20 20 13 AI MD 50 17 17 32 D AM 1 59 PH AR 20 MA CY MG #3 TA 93 BL 8 ET VE 23 03 03 60 30 00 RI Ac RA 15 -1 -3 .0 00 TE ti PA 50 1- 1- 00 01 ve TX 02 20 20 13 AI L 70 17 17 97 D 12 1 66 PH 0 AR MG MA CY TA BL #3 ET 93 8 MD 59 03 03 70 28 00 RI [...] TA 93 BL 8 ET HY 16 02 03 30 30 [...] 5 8 MG CP EL 00 02 03 60 30 00 [...] Q 8 TA BL ET HY 00 02 03 60 [address] 37 -0 -1 .0 00 TE ti OX 80 9- 0- 00 01 ve YC 37 20 20 13 AI HL 30 17 17 69 D OR 1 77 PH OQ AR UI MA NE CY 20 #3 0 93 MG 8 TA B VE 23 02 03 60 30 00 RI Ac RA 15 -0 -1 .0 00 TE ti PA 50 9- 0- 00 01 ve TX 02 20 20 13 AI L 70 17 17 97 D 12 1 66 PH 0 AR MG MA CY TA BL #3 ET 93 8 ES 65 02 03 30 30 00 RI Ac CI 86 -0 -1 .0 00 TE ti TA 20 9- 0- 00 01 ve LO 37 20 20 13 AI MD 50 17 17 32 D AM 1 59 PH AR 20 MA CY MG #3 TA 93 BL 8 ET AT 60 02 02 30 30 00 [...] 1 52 PH CE AR TA M TX #3 NO 91 PH 4 EN 5- 32 5 VE 23 01 02 60 30 00 RI Ac RA 15 -1 -1 .0 00 TE ti PA 50 0- 0- 00 01 ve TX 02 20 20 13 AI L 70 [...] ve LO 37 20 20 13 AI MD 50 17 17 32 D AM 1 [...] #3 33 93 50 8 PO WD AT 60 01 02 30 30 00 RI Ac OR 50 -0 -0 .0 00 TE ti VA 52 5- 3- [address] 58 20 20 15 AI AT 00 17 17 70 D IN 9 41 PH AR 40 MA CY MG #3 TA 93 BL 8 ET HY 16 01 02 30 30 00 [...] OU RI P NG IN E C LE 23 12 01 30 30 00 RI Ac FL 15 -2 -2 .0 00 TE ti UN 50 7- 0- 00 01 ve OM 04 20 20 16 AI ID 40 16 17 04 D E 3 80 PH 20 AR MA MG CY TA #3 BL 93 ET 8 EL 00 12 01 60 30 00 [...] #3 -2 93 5 8 MG CP WA 51 12 01 40 30 00 RI Ac RF 67 -2 -1 .0 00 TE ti AR 24 1- 3- 00 01 ve IN 03 20 20 14 AI 20 16 17 59 D SO 1 90 PH DI AR UM MA 5 CY MG #3 93 TA 8 BL ET IB 68 01 01 00 30 10 [...] AR A MA J CY #4 93 ES 00 01 01 00 30 27 WA 70 SP Ac TR 55 -1 -2 .0 L- 19 IR ti AD 50 9- 8- 00 MA 57 EK ve IO 88 20 20 RT 3 L 60 10 10 AN 1 2 PH IT MG AR A MA J TA CY BL ET #4 93 00 01 01 00 8. 28 RI 38 SP Ac 07 -0 -1 00 TE 76 IR ti 80 7- 4- 0 95 EK ve 48 20 20 AI 14 10 10 D AN 2 PH IT AR A M J #3 91 4 OX 00 01 01 00 30 2 WA 22 HI [...] 21 09 10 FA la E 1 TX bl 15 LY e [address] UG TA BL ET FL 00 12 12 00 1. 1 SO 33 No Ac UC 17 -2 -3 00 PE 12 t ti ON 25 1- 1- 0 RS 92 Av ve AZ 41 20 20 ai OL 21 09 09 FA la E 1 TX bl 15 LY e [address] UG TA BL ET TA 00 12 12 00 10 5 SO 33 No Ac TX 00 -1 -3 .0 PE 10 t ti FL 40 7- 1- 00 RS 96 Av ve U 80 20 20 ai 75 08 09 09 FA la 5 TX bl MG LY e CA PS UG UL E ALEMAN 00 12 12 00 14 7 SO 33 No Ac LF 60 -1 -3 .0 PE 10 t ti AM 35 7- 1- 00 RS 97 Av ve ET 78 20 20 ai HO 12 09 09 FA la XA 8 TX bl ZO LY e LE -T DR ENCISO UG DS TA BL ET Procedures Procedure [place] [address] [facility] ANGIOGRAP 7 MEDICAL HY CHEST IMAGING W/CONTRAS ASS T/NONCONT RAST RADIOLOGI [address] [place] C 7 MEDICAL EXAMINATI IMAGING ON CHEST ASS [place] FRONTAL LAPAROSCO 6851 [facility] PICALLY 0 N N ASSISTED [facility] HYSTERECT TAWANDA LAP 6563 [facility] REMOVAL 0 N N [facility]OTH [facility] OVARIES&T [facility] [email or web address] Encounters Encounter Start End Date Code Location Performer Type Date OFFICE 88935 [facility] 7 7 [place] VISIT PHYSICIAN [facility] S [facility] [address] - 7 7 [facility]PATIEN [facility] - 7 7 [facility]PATI[facility] - 7 7 [facility] - 7 [address] [facility] 7 7 [facility] - 7 [facility] - 7 7 [facility] - [facility] - 7 7 [facility] - 7 7 [facility] 7 7 [facility] 7 [facility] - 7 7 [facility] - 7 7 [facility] - 7 7 [facility] 7 7 [facility] - 7 7 [facility] - 7 7 [facility] - 7 7 [facility] 7 7 [facility] - 6 6 [facility] - 6 6 [facility] - 6 6 [facility] [place] - 6 6 [facility] - 6 6 Y [facility] - 6 6 [facility] - 6 6 [facility] UN[facility]ERS[facility] - 6 6 [facility] - 6 6 [facility] - 6 6 [facility] - 6 6 [facility] - [address] [facility] - 5 5 [facility] [place] - 5 5 [facility] [place] - 5 5 [facility] [place] - 5 5 [facility] - 5 5 [facility] - [address] [facility] - 5 5 [facility] [place] - 5 5 [facility] - 5 5 [facility] - 5 5 [facility] [place] - 4 4 [facility] [address] [facility] [place] [address] [address] [facility] [place] [address] [facility] [place] [address] [facility] [place] [address] [facility] [place] - 2 2 [facility] [place] - 2 2 [facility] [place] - 2 2 [facility] - [address] [facility] [place] - 1 1 [facility] [address]
--- OUTSIDE RECORDS SUMMARY | 2017-02-13 14:20 | External Medical Summary Rpt | CCD ---
Author Author , VINCENT CASEYARMIN Address Unknown Phone [email or web address] Care Team Providers Care Spiral Binder Name Role Phone [facility], Unavailable Unavailable [facility] Unavailable Unavailable CLINIC, [facility] RAY, RAY Unavailable Unavailable [facility] Unavailable Unavailable HOSPITAL, [facility] PHYSICIAN Unavailable Unavailable PRACTICE L, [facility] LUIS SMITH Unavailable Unavailable [facility] Unavailable Unavailable CENTER, [facility], [facility]available Unavailable [facility], Unavailable Unavailable [facility] Unavailable Unavailable [facility], Unavailable Unavailable [facility] Unavailable Unavailable HOSPITAL, [facility], Unavailable Unavailable [facility] Unavailable Unavailable INC, [facility] Unavailable Unavailable HOSPITAL, [facility] Unavailable Unavailable HOSPITAL P, [facility] Unavailable Unavailable GROUP, INC[facility] CAROL HO Unavailable Unavailable [facility] Unavailable Unavailable GROUP PS, [facility] Unavailable Unavailable [facility], [facility] Unavailable Unavailable MEDICAL G, [facility] Un[facility], [facility], [facility] Unavailable Unavailable HOLDINGS, [facility], Unavailable Unavailable [facility] & Unavailable Unavailable [facility], [facility], Unavailable Unavailable [facility] Unavailable Unavailable SERVICES, [facility]available Unavailable [facility] Unavailable Unavailable MEDICAL, [facility] Unavailable Unavailable [facility], [facility] Unavailable Unavailable [facility] CHINO MOLINA MD Unavailable Unavailable CONSULTING SRV, CHINO MOLINA MD CONSULTING SRV [facility], Unavailable Unavailable PLLC, [facility], [facility] Unavailable Unavailable LAB, PATHOLOGY & CYTOLOGY LAB ANDREZ KWAN, ANDREZ Unavailable Unavailable [id number], Unavailable Unavailable [id number] Unavailable Unavailable [facility], [facility], Unavailable Unavailable [facility] Unavailable Unavailable [facility], [facility] Unavailable Unavailable [facility]Y [facility], [facility], Unavailable [facility]available [facility] Unavailable Unavailable HOSPITALS, [facility], Unavailable Unavailable [facility] Unavailable [facility] Unavailable Unavailable PHYSICIANS, [facility]IC[facility]ANS [facility] Unavailable Unavailable #[id number], [facility] Purpose Continuity of Care Document - 03-27-2009 through 2016 Problems Code Diagnosis DOS Provider Status R05 COUGH 12-30-2016 [facility] L I10 ESSENTIAL 12-24-2016 [facility] P N J209 ACUTE 12-24-2016 [facility] BRONCHITIS PHYS[facility]IANS, UNSPECIFIED [facility] R0602 SHORTNESS 12-24-2016 [facility] BREATH PHYSICIANS, [facility] R071 CHEST PAIN 12-24-2016 [facility] R0781 PLEURODYNIA 12-24-2016 [facility] R091 PLEURISY 12-24-2016 [facility], [facility] Z881 ALLERGY 12-24-2016 [place] STATUS TO [facility] P ANTIBIOTIC AGENTS STATUS Z886 ALLERGY 12-24-2016 [place] STATUS TO [facility] P AGENT STATUS D6869 OTHER 12-19-2016 [place] THROMBOPHIL [facility] IA PHYSICIANS E876 HYPOKALEMIA 12-19-2016 [facility] PHYSICIANS I639 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 [place] INFARCTION [facility] UNSPECIFIED PHYSICIANS M069 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 [place] ARTHRITIS [facility] UNSPECIFIED PHYSICIANS Z09 ENC F/U 12-19-2016 [facility] EXAM AFTR HEALTHCARE CMPL TX OT HOSPITALS THAN MALIG NEOPLSM M98359 PERSONAL 12-19-2016 HISTORY OT HEALTHCARE VENOUS HOSPITALS THROMBOSIS& EMBOLISM L19105 SPONDYLOSIS 10-21-2016 W/O HEALTHCARE MYELOPATH/R HOSPITALS ADICULOPATH Y CERV RGN M791 MYALGIA 10-21-2016 HEALTHCARE HOSPITALS M0579 RA 10-09-2016 [facility]ICAL W/RHEUMATOI SERV D FCT MX FOUNDATION SITE W/O ORGAN/SYS INVLV M797 FIBROMYALGI 10-09-2016 [facility] A SERV FOUNDATION [id number] OTHER LONG 10-09-2016 [facility] MEDICAL TERM SERV CURRENT FOUNDATION DRUG THERAPY R51 HEADACHE 10-04-2016 [facility] D6859 OTHER 09-09-2016 [place] PRIMARY OF HI THROMBOPHIL PHYSICIANS IA R635 ABNORMAL 09-09-2016 [place] WEIGHT GAIN OF HI PHYSICIANS Z8673 PERSONAL HX 09-09-2016 [place] TIA & OF HI CEREB PHYSICIANS INFARCT NO RESID DEFICIT J0190 ACUTE 08-27-2016 [facility] SINUSITIS PHYSICIAN UNSPECIFIED PRACTICE L Z7901 DETENTION DEPUTY 08-14-2016 CURRENT USE HEALTHCARE OF HOSPITALS ANTICOAGULA NTS I07694 PERSONAL 08-14-2016 HISTORY OF HEALTHCARE PULMONARY HOSPITALS EMBOLISM E237 DISORDER OF 08-12-2016 [facility] MEDICAL PITUITARY SERV GLAND FOUNDATION UNSPECIFIED E54925 CHRONIC 08-12-2016 [facility] MEDICAL E[facility]O THROMB SERV UNS DEEP FOUNDATION VEINS UNS LOW EXT M059 RA WITH 08-12-2016 [facility] MEDICAL RHEUMATOID SERV FACTOR FOUNDATION UNSPECIFIED E039 HYPOTHYROID 07-30-2016 [facility] UNSPECIFIED HOLDINGS H8113 BENIGN 07-24-2016 [facility] PAROXYSMAL PHYSICIAN V[facility]O PRACTICE L BILATERAL R1031 RIGHT LOWER 07-10-2016 [facility] [place] [facility] PAIN R1032 LEFT LOWER 07-10-2016 [facility] N EMERGENCY PAIN PHYS R110 NAUSEA 07-10-2016 [facility] RADIOLOGY G8918 OTHER ACUTE 06-26-2016 [facility], POSTPROCEDU PLLC RAL PAIN R1012 LEFT UPPER 06-26-2016 [facility] PAIN INC R1084 GENERALIZED 06-26-2016 [facility] ABDOMINAL [facility] PAIN IMAGING ASS R109 UNSPECIFIED 06-26-2016 [facility] ABDOMINAL PHYSICIANS, PAIN PLLC D121 BENIGN 06-25-2016 [facility] NEOPLASM OF PHYSICIAN APPENDIX PRACTICE L E079 DISORDER OF 06-25-2016 [facility] UNSPECIFIED HOSPITAL K219 GASTRO-ESOP 06-25-2016 [place] H REFLUX COMMUNITY DISEASE HOSPITAL WITHOUT ESOPHAGITIS K3580 UNSPECIFIED 06-25-2016 [place] ACUTE ANESTHESIA APPENDICITI GROUP PS S Q430 MECKELS 06-25-2016 [place] DIVERTICULU PHYSICIAN M DISPLACED PRACTICE L HYPERTROPHI C R1030 LOWER 06-25-2016 [facility] ABDOMINAL COMMUNITY PAIN HOSPITAL UNSPECIFIED E236 OTHER 06-13-2016 [facility] DISORDERS [facility]ALTHCARE OF HOSPITALS PITUITARY GLAND E669 OBESITY 06-13-2016 [place] [facility] UNSPECIFIED SERV FOUNDATION R5383 OTHER 06-13-2016 [facility] K529 NONINFECTIV 06-05-2016 [facility] DIGESTIVE GASTROENTER CARE CENTER ITIS & COLITIS UNS K582 MIXED 06-05-2016 [facility] IRRITABLE DIGESTIVE BOWEL CARE CENTER SYNDROME N816 RECTOCELE 06-05-2016 [facility]IGESTIVE [facility]ARE CENTER R112 NAUSEA WITH 05-16-2016 [facility] [place] [facility] RAD[facility]OLOG[facility] UNSPECIFIED H99110 ACUTE EMBO 04-26-2016 [facility] THROMB UNS HEALTHCARE DEEP VEINS HOSPITALS UNS LOW EXTREM K2980 DUODENITIS 04-19-2016 [facility] WITHOUT DIGESTIVE BLEEDING CARE CENTER K635 POLYP OF 04-19-2016 [place] COLON ANESTHESIA GROUP PS K648 OTHER 04-19-2016 [facility] HEMORRHOIDS DIGESTIVE CARE CENTER Z8719 PERSONAL 04-19-2016 [facility] HISTORY DIGESTIVE OTHER CARE CENTER DISEASES DIGESTIVE SYSTEM Z7902 INTERMEDIATE 04-15-2016 [facility] CURR USE COMM[facility]ITY ANTITHROMBO HOSPITAL TICS/ANTIPL ATELETS Z888 ALLERGY 04-15-2016 [place] STATUS OT COMMUNITY RX MEDS & HOSPITAL BIOLOG SUBSTANC STS P46570 LATEX 04-15-2016 [facility] ALLERGY [facility] STATUS HOSPITAL N200 CALCULUS OF 04-13-2016 [facility] ASSOCIAT M0600 RA WITHOUT 02-29-2016 [facility] MEDICAL RHEUMATOID SERV FACTOR FOUNDATION UNSPECIFIED SITE D352 BENIGN 02-08-2016 [place] NEOPLASM OF PHYSICIAN PITUITARY PRACTICE L GLAND R2689 OTHER 02-08-2016 [place] ABNORMALITI PHYSICIAN ES OF GAIT PRACTICE L AND MOBILITY G08 INTRACRANL 02-06-2016 [facility] MEDICAL & SERV INTRASPINL FOUNDATION PHLEBIT & THROMBOPHLE BIT I340 NONRHEUMATI 02-06-2016 [facility] C MITRAL SERV VALVE FOUNDATION INSUFFICIEN CY I351 NONRHEUMATI 02-06-2016 [facility] C AORTIC SERV VALVE FOUNDATION INSUFFICIEN CY I358 OTHER 02-06-2016 [facility] MEDICAL NONRHEUMATI SERV C AORTIC FOUNDATION VALVE DISORDERS I517 CARDIOMEGAL 02-06-2016 [facility] Y SERV [facility]OUNDATION N179 ACUTE 02-06-2016 [place] [facility] KIDNEY SERV FAILURE FOUNDATION UNSPECIFIED N189 CHRONIC 02-06-2016 [facility] MEDICAL KIDNEY SERV DISEASE FOUNDATION UNSPECIFIED R791 ABNORMAL 02-06-2016 [facility] COAGULATION SERV PROFILE FOUNDATION D689 COAGULATION 02-05-2016 [facility] DEFECT SERV UNSPECIFIED FOUNDATION V41956 MIGRAINE 02-05-2016 [facility] W/AURA NOT SERV INTRACT W/O FOUNDATION STAT MIGRAINOSUS H538 OTHER 02-05-2016 [place] VISUAL MEDICAL DISTURBANCE IMAGING ASS S H5442 BLINDNESS 02-05-2016 [facility] LEFT EYE SERV NORMAL FOUNDATION VISION RIGHT EYE Y51489 CEREBRAL 02-05-2016 [facility] INFARCT D/T PHYSICIANS, EMBOLISM PLLC LT POST CERBRL ART R9402 ABNORMAL 02-05-2016 [facility] BRAIN SCAN SERV FOUNDATION H6983 OTHER SPEC 01-25-2016 [place] DISORDERS PHYSICIAN EUSTACHIAN PRACTICE L TUBE BILAT I889 NONSPECIFIC 01-25-2016 [facility] PHYSICIAN LYMPHADENIT PRACTICE L IS UNSPECIFIED H6501 ACUTE 01-20-2016 [facility] SEROUS PHYSICIANS, OTITIS PLLC MEDIA RIGHT EAR L049 ACUTE 01-20-2016 [facility] LYMPHADENIT PHYSICIANS, IS PLLC UNSPECIFIED M5481 OCCIPITAL 01-17-2016 [facility] Y24986 PAIN IN 12-07-2015 [facility] RIGHT LEG MEDICAL IMAGING ASS H9313 TINNITUS 12-06-2015 [place] BILATERAL PHYSICIAN PRACTICE L H938X1 OTHER 12-06-2015 [facility] SPECIFIED PHYSICIAN DISORDERS PRACTICE L OF RIGHT EAR M2550 PAIN IN 11-21-2015 [facility] JOINT Z0000 ENCOUNTER 11-21-2015 [facility] MED EXAM W/O ABNORMAL FIND F09402 PAIN IN 11-16-2015 [facility] LEFT FOOT RADIOLOGY Z5181 ENCOUNTER 09-14-2015 [facility]ICAL FOR SERV THERAPEUTIC FOUNDATION DRUG LEVEL [...] [facility] ABNORMAL PHYSICIANS, FINDINGS PLLC BLOOD CHEMISTRY R29476 MIGRAINE 07-10-2015 [facility] W/O AURA REGIONAL NOT INTRACT MEDICAL W/O STAT MIGRAIN G930 CEREBRAL 07-10-2015 [facility] CYSTS RADIOLOGY ASSOCIAT H8120 VESTIBULAR 07-10-2015 [facility] NEURONITIS REGIONAL UNSPECIFIED MEDICAL EAR R42 DIZZINESS 07-10-2015 [facility] AND REGIONAL GIDDINESS MEDICAL R6889 OTHER 07-10-2015 [facility] GENERAL REGIONAL SYMPTOMS MEDICAL AND SIGNS R899 UNS ABNORM 06-15-[address] [facility] [place] [facility] SPEC FROM OTH ORGN SYS & TISS H903 SENSORINEUR 06-14-2015 [facility] AL HEARING PHYSICIAN LOSS PRACTICE L BILATERAL J0100 ACUTE 05-23-2015 [place] MAXILLARY PHYSICIAN SINUSITIS PRACTICE L UNSPECIFIED N89261 KERATOCONJU 05-19-2015 AND[facility] KWAN NCTIVITIS SICCA NOT SJOGREN BILATERAL H109 UNSPECIFIED 05-10-2015 [facility] TIS M461 SACROILIITI 05-01-2015 [facility] S NOT MEM HOSP ELSEWHERE INC CLASSIFIED M545 LOW BACK 05-01-2015 [facility] PAIN MEM [facility]OS[facility] INC H524 PRESBYOPIA 04-17-2015 ANDRE[facility] KWAN M5442 LUMBAGO 04-13-2015 [facility] WITH SCIATICA LEFT SIDE K5900 CONSTIPATIO 04-06-2015 [place] N PHYSICIAN UNSPECIFIED PRACTICE L R0789 OTHER CHEST 03-18-2015 [facility] PAIN PHYSICIANS, [facility] R079 CHEST PAIN 03-18-2015 [place] UNSPECIFIED MEDICAL IMAGING ASS R946 ABNORMAL 03-07-2015 [facility] RESULTS OF PHYSICIAN THYROID PRACTICE L FUNCTION STUDIES Z202 CONTACT 03-07-2015 [place] WITH PHYSICIAN EXPOSURE PRACTICE L INFECT SEXUAL MODE TRANSMS I2609 OTHER 02-03-2015 [facility] EMBOLISM HOSPITAL W/ACUTE COR PULMONALE A048 OTHER 01-23-2015 [facility] SPECIFIED PHYSICIAN BACTERIAL PRACTICE L INTESTINAL INFECTIONS R1013 EPIGASTRIC 01-19-2015 [facility] G R001 BRADYCARDIA 01-18-2015 [facility] UNSPECIFIED CLINIC PSC R072 PRECORDIAL 01-18-2015 [facility] [place] PAIN RADIOLOGY 7804 DIZZINESS 12-19-2014 [facility] GIDDINESS INC V571 OTHER 12-19-2014 [facility] PHYSICAL [facility] THERAPY INC 33722 UNSPECIFIED 12-14-2014 [facility] MENIERES PHYSICIAN DISEASE PRACTICE L 79113 VESTIBULAR 12-14-2014 [facility] NEURONITIS PHYSICIAN PRACTICE L 60989 UNSPECIFIED 12-14-2014 [facility] TINNITUS PHYSICIAN PRACTICE L 79395 SENSORINEUR 12-14-2014 [place] AL HEARING PHYSICIAN LOSS PRACTICE L BILATERAL 470 DEVIATED 12-14-2014 [facility] NASAL PHYSICIAN SEPTUM PRACTICE L 4779 ALLERGIC 12-14-2014 [facility] RHINITIS PHYSICIAN CAUSE PRACTICE L UNSPECIFIED 29394 OTH 12-14-2014 [place] SYMPTOMS PHYSICIAN INVLV PRACTICE L NERV&MUSCUL OSKELETAL SYSTEMS 2449 UNSPECIFIED 12-12-2014 [facility] HYPOTHYROID HOLDINGS ISM 90069 DIARRHEA 12-12-2014 [facility] HOLDINGS 98675 MIGRAINE 11-29-2014 [place] W/AURA W/O NEUROLOGY INTRACT W/O STATUS MIGRNOSUS 7840 HEADACHE 11-29-2014 [facility] 4019 UNSPECIFIED 10-31-2014 [facility] ESSENTIAL JARRELL HYPERTENSIO HOLDINGS N 7831 ABNORMAL 10-31-2014 [facility] WEIGHT GAIN JAR[facility]LL HOLDINGS 4610 ACUTE 09-30-2014 [place] MAXILLARY MEDICAL SINUSITIS IMAGING ASS 3899 UNSPECIFIED 09-13-2014 [place] HEARING PHYSICIAN LOSS PRACTICE L 73334 OTHER 09-13-2014 [place] DISEASES OF PHYSICIAN NASAL PRACTICE L CAVITY AND SINUSES 1121 CANDIDIASIS 08-04-2014 [facility] AND VAGINA 2562 POSTABLATIV 08-04-2014 [facility] E OVARIAN JARRELL FAILURE HOLDINGS 73831 UNSPECIFIED 08-04-2014 [facility] CONSTIPATIO HOLDINGS N 6101 DIFFUSE 08-04-2014 [facility] CYSTIC [facility] MASTOPATHY HOLDINGS V7231 ROUTINE 08-04-2014 [facility] AL EXAMINATION V7612 OTHER 08-04-2014 [facility] [place] SCREENING RADIOLOGY MAMMOGRAM 8460 SPRAIN AND 07-29-2014 [place] STRAIN OF PHYSICIAN LUMBOSACRAL PRACTICE L 4550 INTERNAL 07-20-2014 [facility] HEMORRHOIDS HEALTH WITHOUT MEDICAL G MENTION COMP 5693 HEMORRHAGE 07-20-2014 [facility] OF [facility] AND ANUS MEDICAL G 17910 NAUSEA 07-05-2014 [place] ALONE PHYSICIAN PRACTICE L 5758 OTHER 05-29-2014 [facility] SPECIFIED [facility] P GALLBLADDER 56661 HEMATURIA 05-29-2014 [facility] UNSPECIFIED [facility] P 98199 ABDOMINAL 05-29-2014 [facility] PAIN RIGHT [facility] P QU[facility]ANT 5990 URINARY 05-25-2014 [place] TRACT PHYSICIAN INFECTION PRACTICE L SITE NOT SPECIFIED 68109 MICROSCOPIC 05-25-2014 [facility] HEMAT[facility]IA PHYSICIAN PRACTICE L 91482 INSOMNIA 05-25-2014 [place] UNSPECIFIED PHYSICIAN PRACTICE L 7881 DYSURIA 05-25-2014 [facility] PHYS[facility]IAN PRACTICE L 4871 INFLUENZA 03-10-2014 [facility] WITH OTHER MEDICAL RESPIRATORY CLINIC MANIFESTATI ONS 33359 FEVER 03-10-2014 [facility] PRESENTING MEDICAL CONDITIONS CLINIC CLASSIFIED ELSEWHERE 7862 COUGH 03-10-2014 [facility] MEDICAL CLINIC 2382 NEOPLASM OF 02-23-2014 [facility] UNCERTAIN MEDICAL BEHAVIOR OF CLINIC SKIN 86616 UNSPECIFIED 02-16-2014 [facility] VAGINITIS MEDICAL AND CLINIC VULVOVAGINI TIS [...] HISTORY COMMUNITY ALLERGY [facility] ANTI-INFECT RIK AGT V146 PERSONAL 02-01-2014 [place] HISTORY OF [facility] ALLERGY TO HOSPITAL ANALGESIC AGENT V5869 LONG-TERM 02-01-2014 [facility] USE OF HOSPITAL OTHER MEDICATIONS 66471 GENERALIZED 10-12-2013 [facility] ANXIETY MEDICAL DISORDER CLINIC 7823 EDEMA 09-21-2013 [facility] MEDICAL CLINIC 4011 ESSENTIAL 09-10-2013 [facility] HYPERTENSIO MEDICAL N, BENIGN CLINIC 4660 ACUTE 07-07-2013 [facility] BRONCHITIS MEDICAL CLINIC 11816 WHEEZING 07-07-2013 [facility] MEDICAL CLINIC 52330 ACUTE 07-02-2013 [facility], N EMERGENCY WITHOUT PHYSI MENTION OF OBSTRUCTIO 7841 THROAT PAIN 07-02-2013 [facility] N EMERGENCY PHYSI 3968 MULTIPLE 06-29-2013 [facility] PHYSICIAN OF [employer] AND AORTIC VALVES 28284 HYPERSOMNIA 06-29-2013 CHINO MOLINA MD UNSPECIFIED CONSULTING SRV 3963 MITRAL 06-28-2013 [facility] INSUFF&AORT IC VALVE INSUFF 3970 DISEASES OF 06-28-2013 [facility] VALVE 4299 UNSPECIFIED 06-28-2013 [facility] HEART [facility] DISEASE 24641 OTHER 06-25-2013 [facility] DY[facility] AND [facility] HOSPITAL RESPIRATORY ABNORMALITI ES V851 BODY MASS 06-25-2013 [facility] ADULT 7197 DIFFICULTY 06-17-2013 [facility] 7851 PALPITATION 06-17-2013 [facility] 7852 UNDIAGNOSED 06-17-2013 CHINO MOLINA CARDIAC MURMURS CONSULTING SRV 58568 SHORTNESS 06-17-2013 [facility] 56033 PRECORDIAL 06-17-2013 CHINO DICK MD CONSULTING SRV 83056 OCCLUSION&S 06-16-2013 CHINO WELLS MD CAROTID ART CONSULTING W/O SRV MENTION INFARCT 2768 HYPOPOTASSE 06-09-2013 [facility] 79419 CHEST PAIN 06-09-2013 [facility] UNSPECIFIED N EMERGENCY PHYSI 73430 NAUSEA WITH 06-09-2013 [facility] VOMITING N EMERGENCY PHYSI V145 PERSONAL 06-09-2013 [place] HISTORY OF COMMUNITY ALLERGY TO HOSPITAL NARCOTIC AGENT 47607 VENOUS 05-24-2013 [facility] OCCLUSION OF RETINA 64652 MIGRAINE 03-09-2012 [facility] W/O AURA SERV W/O INTRACT FOUNDATIO W/O STAT MIGRNOSUS 90515 UNSPECIFIED 03-09-2012 [facility] RETINAL SERV VASCULAR FOUNDATIO OCCLUSION 33579 ARTERIAL 03-09-2012 [facility] BRANCH SERV OCCLUSION FOUNDATION OF RETINA 3689 UNSPECIFIED 03-09-2012 [facility] VISUAL SERV DISTURBANCE FOUNDATIO 32519 UNSPECIFIED 03-09-2012 [facility] PERIPHERAL SERV VERTIGO FOUNDATIO 26996 UNSPECIFIED 03-09-2012 [facility] OCCLUSION W/INFARCT 4359 UNSPECIFIED 03-09-2012 [facility] TRANSIENT SERV CEREBRAL FOUNDATIO ISCHEMIA 436 ACUTE BUT 03-09-2012 [facility] ILL-DEFINED SERV FOUNDATIO CEREBROVASC ULAR DISEASE 33752 IMPAIRMENT 03-08-2012 [facility] NOT [facility] FURTHER SPECIFIED 62194 ONE EYE: 03-08-2012 [facility] VISN EMERGENCY IMPAIR; OTH SERVICES EYE: VISN NOT SPEC 91131 UNSPECIFIED 03-08-2012 [facility] HOSPITAL NEURITIS 7292 UNSPECIFIED 03-08-2012 [facility]Y NEURITIS SERVICES AND RADICULITIS V4989 OTHER SPEC 02-10-2012 FAMILY CONDITIONS MEDICINE INFLUENCING ASSOC HEALTH FLEMIN STATUS V8523 BODY MASS 02-10-2012 [facility] INDEX MEDICINE 27.0-27.9 ASSOC ADULT FLEMIN 5920 CALCULUS OF 02-07-2012 [facility] KIDNEY MEDICINE ASSOC FLEMIN 3674 PRESBYOPIA 06-28-2011 [facility] 80012 OTHER 06-14-2011 FAMILY CHRONIC MEDICINE ALLERGIC ASSOC CONJUNCTIVI FLEMIN TIS 59404 UNSPECIFIED 06-14-2011 [facility] SLEEP MEDICINE DISTURBANCE ASSOC FLEMIN V163 FAMILY 05-06-2011 [facility] HISTORY OF RADIOLOGY MALIGNANT ASSOCIAT NEOPLASM OF BREAST 59609 ABDOMINAL 04-26-2011 [facility] PAIN, HOSPITAL UNSPECIFIED SITE 82697 UNS 04-23-2011 FAMILY GASTRITIS&G MEDICINE ASTRODUODIT ASSOC IS W/O FLEMIN MENTION HEMORR 60507 OTHER 04-23-2011 LABORATORY GENERAL & SYMPTOMS BIODIAGNOST ICS V700 ROUTINE 04-23-2011 LABORATORY GENERAL & MEDICAL BIODIAGNOST EXAM@HEALTH ICS CARE FACL 2169 BENIGN 04-09-2011 [facility] NEOPLASM OF DERMATOLOGY SKIN SITE UNSPECIFIED 89977 HEMANGIOMA 04-09-2011 [facility] OF SKIN AND DERMATOLOGY SUBCUTANEOU S TISSUE 40429 DYSCHROMIA, 04-09-2011 [facility] DERMATOLOGY UNSPECIFIED 03924 OTHER 03-21-2011 FAMILY DYSCHROMIA MEDICINE ASSOC FLEMIN 2112 BENIGN 03-07-2011 NEW NEOPLASM OF [place] DU[facility]UM [facility]INIC PSC JEJUNUM AND ILEUM 4240 MITRAL 03-07-2011 [facility] DISORDERS 07263 REFLUX 03-07-2011 [facility]OSP[facility] 46780 ESOPHAGEAL 03-07-2011 [facility] GASTROENTER OLOG 64740 ACUTE 03-07-2011 [facility] WITHOUT GASTROENTER MENTION OF OLOG HEMORRHAGE 79396 OTHER 03-07-2011 [facility] DISORDER OF STOMACH AND DUODENUM 7220 DISPLCMT 02-08-2011 [facility] DISC WITHOUT MYELOPATHY 7230 SPINAL 02-08-2011 [facility]ION 7231 CERVICALGIA 02-08-2011 [facility] 2859 UNSPECIFIED 04-03-2009 [facility] 514 PULMONARY 04-03-2009 [facility] HYPOSTASIS 6146 PELVIC 04-03-2009 PATHOLOGY & PERITONEAL CYTOLOGY ADHESIONS, LAB FEMALE 6200 FOLLICULAR 04-03-2009 PATHOLOGY & CYST OF CYTOLOGY [facility] 6202 OTHER AND 04-03-2009 PATHOLOGY & UNSPECIFIED CYTOLOGY OVARIAN LAB CYST 6250 DYSPAREUNIA 04-03-2009 [facility] 6253 DYSMENORRHE 04-03-2009 [facility] 31145 HYPOXEMIA 04-03-2009 [facility] [id number] UNSPECIFIED 03-27-2009 [facility] PRE-OPERATI VE EXAMINATION Medications Na ND [...] 1 89 PH CE AR TA MA VT CY NO PH #5 EN 91 5- [...] EL 00 09 10 60 30 00 GA Ac IQ 00 -1 -1 .0 00 L- ti UI 30 2- 3- 00 07 MA ve S 89 20 20 50 RT 5 42 17 17 87 MG 1 81 PH AR TA MA BL CY ET #5 91 TR 64 09 10 30 30 00 GA Ac IN 76 -1 -1 .0 00 L- ti TE 40 2- 3- 00 07 MA ve LL 75 20 20 50 RT IX 03 17 17 43 0 82 PH 20 AR MA MG CY TA #5 BL 91 ET TR 00 09 10 30 30 00 [facility] IA 78 -1 -1 .0 00 L- ti MT 12 2- 3- 00 07 MA ve ER 07 20 20 49 RT EN 40 17 17 66 E- 1 33 PH HC AR TZ MA CY 37 .5 #5 -2 91 5 MG CP GA 65 09 10 30 30 00 [facility] BA 16 -1 -1 .0 00 L- ti PE 20 3- 3- 00 04 MA ve NT 10 20 20 53 RT IN 15 17 17 10 0 18 PH 10 AR 0 MA MG CY CA #5 PS 91 UL E HY 68 09 10 30 [address] 64 -1 -0 .0 00 L- ti OC 50 0- 6- 00 07 MA ve HL 51 20 20 49 RT OR 05 17 17 78 OT 4 52 PH HI AR AZ MA ID CY E 25 #5 91 MG TA B PO 00 08 09 90 30 00 [facility] TA 60 -3 -2 0. 00 L- ti SS 31 0- 9- 00 07 MA ve IU 54 20 20 0 50 RT M 35 17 17 67 CL 8 80 PH AR 20 MA % CY (4 0 #5 ME 91 Q/ 15 ML HY 68 08 09 30 [address] 64 -0 -0 .0 00 [...] EL 00 07 08 60 30 00 GA Ac IQ 00 -2 -1 .0 00 [...] 06 07 2. 28 00 AC Ac VT 07 -1 -2 00 00 CR ti [...] AT 68 06 07 30 30 00 GA Ac OR 64 -1 -0 .0 00 L- ti VA 50 2- 7- [address] 46 20 20 48 RT AT 05 17 17 75 IN 4 01 PH AR 40 MA CY MG #5 TA 91 BL ET EL 00 06 07 60 30 00 GA Ac IQ 00 -1 -0 .0 00 L- ti UI 30 2- 7- 00 07 MA ve S 89 20 20 48 RT 5 42 17 17 75 MG 1 32 PH AR TA MA BL CY ET #5 91 TR 00 07 30 30 00 GA Ac IA 78 -1 -0 .0 00 L- ti MT 12 2 7- 00 07 MA ve ER 07 20 20 48 RT EN 40 17 17 75 E- 1 00 PH HC AR TZ MA CY 37 .5 #5 -2 91 5 MG CP DI 00 07 24 30 00 GA Ac CY 52 -1 -0 0. 00 L- ti CL 70 2- 7- 00 07 MA ve OM 58 20 20 0 49 RT IN 60 17 17 30 E 1 56 PH 10 AR MA MG CY CA #5 PS 91 UL E AM 00 05 06 20 10 00 GA Ac OX 78 -3 -3 .0 00 L- ti -C 11 0- 0- 00 07 MA ve LA 85 20 20 49 RT V 22 17 17 06 87 0 04 PH 5- AR 12 MA 5 CY MG #5 TA 91 BL ET QU 16 09 03 30 30 00 GA Ac ET 72 -0 -3 .0 00 L- ti IA 90 4- 0- 00 07 MA ve PI 14 20 20 49 RT NE 60 17 17 14 1 27 PH FU AR MA MA RA CY TE #5 50 91 MG TA B IN 31 05 06 90 27 00 GA Ac DO 72 -2 -2 .0 00 L- ti ME 20 4- 3- 00 07 MA ve TH 54 20 20 48 RT AC 20 17 17 95 IN 1 88 PH AR 25 MA CY MG #5 CA 91 PS UL E HU 00 05 06 2. 28 00 AC Ac VT 07 -2 -2 00 00 CR ti RA 43 4- 3- 0 06 ED ve 79 20 20 71 O 40 90 17 17 62 HE 2 16 AL MG TH /0 .8 GR OU ML P IN SY C RI NG E TR 00 05 06 30 30 00 GA Ac IA 78 -1 -0 .0 00 [...] ve LO 52 20 20 48 RT MN 05 17 17 74 AM 4 99 PH AR 20 MA CY MG #5 TA 91 BL ET HY 68 05 06 30 [address] 64 -1 -0 .0 00 [...] 50 1- 2- 00 07 MA ve VT 02 20 20 48 RT L 70 [...] 04 05 2. 28 00 AC Ac VT 07 -2 -1 00 00 CR ti [...] YL 15 6- 9- 00 01 ve MN 02 20 20 18 AI ED 20 [...] PA 50 0- 5- 00 01 ve VT 02 20 20 13 AI L 70 [...] ve LO 37 20 20 13 AI MN 50 17 17 32 D AM 1 [...] 1 23 PH CE AR TA MA VT CY NO PH #3 EN 93 8 5- 32 5 ME 00 03 04 21 6 00 RI Ac TH 78 -2 -1 .0 00 TE ti YL 15 0- 4- 00 01 ve MN 02 20 20 17 AI ED 20 [...] ve LO 37 20 20 13 AI MN 50 17 17 32 D AM 1 59 PH AR 20 MA CY MG #3 TA 93 BL 8 ET VE 23 03 03 60 30 00 RI Ac RA 15 -1 -3 .0 00 TE ti PA 50 1- 1- 00 01 ve VT 02 20 20 13 AI L 70 17 17 97 D 12 1 66 PH 0 AR MG MA CY TA BL #3 ET 93 8 MN 59 03 03 70 28 00 RI [...] PA 50 9- 0- 00 01 ve VT 02 20 20 13 AI L 70 17 17 97 D 12 1 66 PH 0 AR MG MA CY TA BL #3 ET 93 8 ES 65 02 03 30 30 00 RI Ac CI 86 -0 -1 .0 00 TE ti TA 20 9- 0- 00 01 ve LO 37 20 20 13 AI MN 50 17 17 32 D AM 1 [...] 1 52 PH CE AR TA M VT #3 NO 91 PH 4 EN 5- 32 5 VE 23 01 02 60 30 00 RI Ac RA 15 -1 -1 .0 00 TE ti PA 50 0- 0- 00 01 ve VT 02 20 20 13 AI L 70 [...] ve LO 37 20 20 13 AI MN 50 17 17 32 D AM 1 [...] 21 09 10 FA la E 1 VT bl 15 LY e [address] UG TA BL ET FL 00 12 12 00 1. 1 SO 33 No Ac UC 17 -2 -3 00 PE 12 t ti ON 25 1- 1- 0 RS 92 Av ve AZ 41 20 20 ai OL 21 09 09 FA la E 1 VT bl 15 LY e [address] UG TA BL ET TA 00 12 12 00 10 5 SO 33 No Ac VT 00 -1 -3 .0 PE 10 t ti FL 40 7- 1- 00 RS 96 Av ve U 80 20 20 ai 75 08 09 09 FA la 5 VT bl MG LY e CA PS UG UL E ALEMAN 00 12 12 00 14 7 SO 33 No Ac LF 60 -1 -3 .0 PE 10 t ti AM 35 7- 1- 00 RS 97 Av ve ET 78 20 20 ai HO 12 09 09 FA la XA 8 VT bl ZO LY e LE -T DR ENCISO UG DS TA BL ET Procedures Procedure [place] [address] [facility] ANGIOGRAP 7 MEDICAL HY CHEST IMAGING W/CONTRAS ASS T/NONCONT RAST RADIOLOGI [address] [place] [facility] 7 MEDICAL EXAMINATI IMAGING ON CHEST ASS [place] FRONTAL LAPAROSCO 6851 [facility] PICALLY 0 N N [facility] TAWANDA LAP 6563 [facility] REMOVAL 0 N N [facility] OVARIES&T [facility] [email or web address] Encounters Encounter Start End Date Code Location Performer Type Date OFFICE 07865 [facility] OUTPATIEN 7 7 [place] VISIT PHYSICIAN 25 S MINUTES [facility] [place] [facility] 7 7 [facility] - 7 7 [facility] - 7 7 [facility] - 7 7 [facility] - 7 7 [facility] - [facility] 7 [facility] - 7 7 [facility] - [facility] 7 7 [facility] - 7 7 [facility] - 7 7 [facility] - 7 7 [facility] - 7 7 [facility] - 7 7 [facility] - 7 7 [facility] [place] - 7 7 [facility] - 7 7 [facility] - 7 7 [facility] - 7 7 [facility] - 6 6 [facility] - 6 6 [facility] - 6 6 [facility] [place] - 6 6 [facility] UN[facility]ERS[facility] - 6 6 [facility] - 6 6 [facility] - 6 6 [facility]ERS[facility] - 6 6 [facility] - 6 6 [facility] - 6 6 [facility] - 6 6 [facility] - 6 6 [facility] - 5 5 [facility] [place] - 5 5 [facility] [place] - 5 5 [facility] [place] - 5 5 [facility] [place] - 5 5 [facility] - 5 5 [facility] - 5 5 [facility] [place] - 5 5 [facility] - 5 5 [facility] - 5 5 [facility] [place] - 4 4 [facility] 4 4 [facility]3] [place] [address] [facility] [place] [address] [facility] [place] [address] [facility] [place] [address] [facility] [place] - 2 2 [facility] [place] - 2 2 [facility] [place] - 2 2 [facility] 1 1 [facility]3] [place] - 1 1 [facility] [address]
--- OUTSIDE RECORDS SUMMARY | 2017-02-13 14:22 | External Medical Summary Rpt | CCD ---
Demographics Preferred Language Panamanian Marital Status Unknown Adventist Affiliation Unknown Race Unknown Ethnic Group Unknown Author Author , LAMONT KAUR Address Unknown Phone Immunization No patient found.
--- OUTSIDE RECORDS SUMMARY | 2017-02-13 14:22 | External Medical Summary Rpt | CCD ---
Demographics Preferred Language Egyptian Marital Status Unknown Denominational Affiliation Unknown Race Unknown Ethnic Group Unknown Author Author , LAMONT KAUR Address Unknown Phone Immunization No patient found.
--- NOTE | 2017-02-13 15:15 | Urgent Treatment Center Report ---
History of Present Issue Date/Time Seen by Provider 02/13/17 1510 Visit Reason Pt arrived:Walked Presenting Problem:PT C/O RT EAR PAIN Location if Accident: Onset of symptoms date/time:/ or onset unknown for:MEDICAL HX UNKNOWN Have you (or family members/close friends) recently traveled outside the [place]? N If Yes, where/when: Have you had exposure to infectious disease within the past month? TB? Other? Specify: c/o sudden onset right ear pain at 1pm. Sudden, "out of no where". no symtoms prior to onset. Described as severe, pulsating, sharp, stabbing. Starting behind right ear and radiating into neck and ear. "I think my ear drum is about to rupture". Minimal improvement after three tylenol "but already back to where it started". 12/08. Hx of CVAx2 and just recently discharged after CP w/ elevated troponin. Chronic rhinorrhea, drainage cough unchanged. Denies fever. "[place] great today". Mild headache "nothing much". Denies dizziness, photophobia, nausea, vomiting, vision change. Pain unchanged with palpation or neck ROM. Source patient Exam Limitations no limitations ALLERGIES Coded Allergies: latex (Intermediate, I-RASH 02/05/16) morphine (Intermediate, 06/26/16) ciprofloxacin (From CIPRO) (Mild, 06/26/16) fentanyl (03/18/15) lisinopril (03/18/15) ofloxacin (From FLOXIN) (03/18/15) Home Medications Reported Medications Hydroxyzine Pamoate (Vistaril) 25 MG PO BIDP PRN ANXIETY Pantoprazole Sodium (Protonix 40MG TAB) 40 MG PO DAILY Gabapentin (Gabapentin 100MG) 100 MG PO DAILY #30 CAP Verapamil Hcl (Isoptin SR) 120 MG PO BID Atorvastatin Calcium (Lipitor 40MG) 40 MG PO DAILY TRIAMTERENE/HYDROCHLOROTHIAZID (Dyazide 37.5-25 Capsule) 1 CAP PO DAILY HYDROCHLOROTHIAZIDE (Hydrochlorothiazide) 25 MG PO DAILY Apixaban (Eliquis) 5 MG PO BID POTASSIUM CHL (Potassium Chloride) 20 MEQ PO BID Quetiapine Fumarate (Quetiapine 200MG) 200 MG PO QHS #30 Vortioxetine Hydrobromide (Brintellix) 20 MG PO DAILY #30 History Medical History General CAD? No Angina: No ME: No Hypertension? Yes Hyperlipidemia? Yes CHF? No DVT? Yes PE? Yes COPD? Yes Asthma? No Anemia? No GERD? No Gastric ulcers? Yes GI Bleed? Yes Hernia? No Thyroid Problems? Yes Hypothyroidism? No CVA? Yes Seizures? No Diabetes? No Insulin Dependent: No Insulin Pump: No Home FSBS? No Renal Insuffiency? No UTI? No Stones? Yes BPH? No GB Disease: Yes Nephritic Syndrome? No Asplenia? No Hepatitis? No Sickle Cell Disease? No Arthritis? No Migraines? Yes Cataracts? No Glaucoma? No MRSA? No HIV? No TB? No Anxiety? Yes Depression? Yes Cancer? No More? 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 Respiratory see HPI, denies shortness of breath Cardiovascular denies chest pain, denies palpitations Gastrointestinal see HPI Musculoskeletal see HPI, denies back pain, denies joint pain Skin denies change in color, denies lesions, denies lumps Psychiatric/Neurological see HPI, denies numbness, denies tingling, denies other Physical Exam Vital Signs Vital Signs Date Time Temp Pulse Resp B/P Pulse O2 O2 Flow FiO2 Ox Delivery Rate 02/13 1436 98.2 77 20 140/87 99 General Appearance normal appearance, no apparent distress (rubbing right side of neck) Eye Exam - bilateral eye normal exam Ear, Nose, Throat normal ENT inspection Neck normal inspection, supple, full range of motion (w/o pain), minimal tenderness with deep palpation right neck Respiratory Status No: respiratory distress, use of accessory muscles, productive cough, non productive cough. Cardiovascular no peripheral edema Neurologic alert, oriented x 3 Skin intact, normal color, warm/dry Lymphatic no adenopathy Medical Decision Making LABS/Meds/Orders Pt receiving controlled substance in ED? No Results/Orders Orders Procedure Date/time Status DIET-NOTHING BY MOUTH 02/[address] HEAD REQ 02/[address] HEAD W/O CONTRAST 02/13 UNK Active Consult MD Physician Consult 1 Consult/PCP Dr. Cole, ER Time Called 1525 Reason Pt. Condition Comments Discussed HPI and exam. Suggest CT and therefore, transfer to ER. Progress [facility] Progress Notes Date 02/13/17 Time 1530 Comment pt agreeable to transfer to ER. Ambulated to room 5. Departure Departure Time of Disposition 1530 Disposition Still a Patient Clinical Impression Primary Impression: Neck pain, acute Secondary Impressions: Acute ear pain Qualifiers: Laterality: right Qualified Code: H92.01 - Otalgia, right ear Condition STABLE at 1546
--- NOTE | 2017-02-13 16:14 | RADIOLOGY REPORT PS360 ---
CT HEAD W/O CONTRAST HISTORY: HEADACHE, WORST EVER ORDERING PHYSICIAN: Tio Cole MD PATIENT AGE: 46 years COMPARISON: 02/05/2016 TECHNIQUE: Axial images obtained without contrast. Brain and bone windows reviewed. FINDINGS: No midline shift, mass effect, intracranial hemorrhage, hydrocephalus, or extra-axial fluid collection is evident. The calvarium has an unremarkable appearance. No mastoid effusion. The visualized paranasal sinuses are unremarkable. IMPRESSION: Negative CT head without contrast. No acute finding.
--- NOTE | 2017-02-13 16:24 | Emergency Room Report ---
History of Present Illness Time Seen by 1533 Presenting Problem in Triage Pt arrived:Walked Presenting Problem:PT WAS SENT FROM [facility] TO ER WITH EXCRUCIATING RIGHT EAR PAIN. Onset of symptoms date/time:02/13/17 or onset unknown for:MEDICAL HX UNKNOWN Treatment Prior to Arrival: SEEN IN [facility] FIRST GIVEN TYLENOL WITH OUT ANY CHANGE IN PAIN [employer] Provided by:NURSE Sepsis Risk Assessment: Temp: 98.1 B/P: 140/87 MAP: 104 Pulse: 74 Resp: 20 Recent fever? N Clinical Suspician of Infection? N Mental Status: 1 - Regular (Normal Baseline) Sepsis Risk:Low Sepsis Risk Have you (or family members/close friends) recently traveled outside the [place]? N If Yes, where/when: Have you had exposure to infectious disease within the past month? N TB? Other? Specify: Source patient, RN notes reviewed, family, RN/MD Exam Limitations no limitations Comment This is a 46-year-old female patient transferred from the [facility] with worse headache ever in the RIGHT temporal occipital area, for the past one hour prior to arrival. Patient has a history of previous stroke, currently on Effient. Patient describes a fullness in the RIGHT ear, also associated with mild tinnitus, and decreased hearing. She has a history of Mnire's disease ALLERGIES Coded Allergies: latex (Intermediate, I-RASH 02/05/16) morphine (Intermediate, 06/26/16) ciprofloxacin (From CIPRO) (Mild, 06/26/16) fentanyl (03/18/15) lisinopril (03/18/15) ofloxacin (From FLOXIN) (03/18/15) Home Medications Reported Medications Hydroxyzine Pamoate (Vistaril) 25 MG PO BIDP PRN ANXIETY Pantoprazole Sodium (Protonix 40MG TAB) 40 MG PO DAILY Gabapentin (Gabapentin 100MG) 100 MG PO DAILY #30 CAP Verapamil Hcl (Isoptin SR) 120 MG PO BID Atorvastatin Calcium (Lipitor 40MG) 40 MG PO DAILY TRIAMTERENE/HYDROCHLOROTHIAZID (Dyazide 37.5-25 Capsule) 1 CAP PO DAILY HYDROCHLOROTHIAZIDE (Hydrochlorothiazide) 25 MG PO DAILY Apixaban (Eliquis) 5 MG PO BID POTASSIUM CHL (Potassium Chloride) 20 MEQ PO BID Quetiapine Fumarate (Quetiapine 200MG) 200 MG PO QHS #30 Vortioxetine Hydrobromide (Brintellix) 20 MG PO DAILY #30 History Medical History General CAD? No Angina: No OK: No Hypertension? Yes Hyperlipidemia? Yes CHF? No DVT? Yes PE? Yes COPD? Yes Asthma? No Anemia? No GERD? No Gastric ulcers? Yes GI Bleed? Yes Hernia? No Thyroid Problems? Yes Hypothyroidism? No CVA? Yes Seizures? No Diabetes? No Insulin Dependent: No Insulin Pump: No Home FSBS? No Renal Insuffiency? No End Stage Renal Disease? No UTI? No Stones? Yes BPH? No GB Disease: Yes Nephritic Syndrome? No Asplenia? No Hepatitis? No Sickle Cell Disease? No Arthritis? No Migraines? Yes Cataracts? No Glaucoma? No MRSA? No HIV? No TB? No Anxiety? Yes Depression? Yes Cancer? No More? 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 Psychiatric/Neurological headache (worst headache ever) Physical Exam Vital Signs Vital Signs Date Time Temp Pulse Resp B/P Pulse O2 O2 Flow FiO2 Ox Delivery Rate 02/13 1729 73 18 142/79 95 02/13 1728 16 02/13 1702 98.3 76 16 156/93 95 02/13 1534 98.1 74 20 98 02/13 1436 98.2 77 20 140/87 99 General Appearance normal appearance, WD/WN, moderate distress Ear, Nose, Throat hearing grossly normal, normal ENT inspection, normal pharynx, normal nasal mucosa, normal tympanic membranes Neck normal inspection, non-tender, supple, full range of motion, no meningismus Respiratory Status Yes: trachea midline, chest symmetrical, non tender chest. No: respiratory distress. Lung Sounds bilateral: normal breath sounds, lungs clear. 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 No Comment 1615-patient reevaluated, appears in no acute distress, medically stable. Advised patient of results obtained, need to follow-up with her ENT regarding her Mnire's disease. Results/Orders Current Medication Orders Sig/Caio Start time Last Medication Dose Route Stop Time Status Admin Ondansetron HCl 0 .STK-MED ONE 02/13 1723 DC .ROUTE Hydromorphone HCl 0 .STK-MED ONE 02/13 1722 DCr .ROUTE Hydromorphone HCl 0.5 MG ONCE ONE 02/13 1630 DCr 02/13 IV 02/13 1631 1728 Ondansetron HCl 4 MG ONCE ONE 02/13 1630 DC 02/13 IV 02/13 1631 1729 Orders Procedure Date/time Status DIET-NOTHING BY MOUTH 02/[address] HEAD REQ 02/13 1532 Complete XRAY/CT/US XRAY/CT/US CT head CT interpretation by discussed w/radiologist CT Results normal/NAD, no fracture seen, no ICH Departure Departure Time of Disposition 1623 Disposition DC Home or Self Care(routine) Clinical Impression Primary Impression: Headache Qualifiers: Headache type: tension-type Headache chronicity pattern: unspecified pattern Intractability: not intractable Qualified Code: G44.209 - Tension-type headache, unspecified, not intractable Secondary Impressions: Acute ear pain Qualifiers: Laterality: right Qualified Code: H92.01 - Otalgia, right ear Meniere disease Neck pain, acute Condition STABLE Referrals Georgie MISHRA, Rach Bradley MD,Hermes Verma Patient Instructions DI for Headache, DI for Meniere's Disease Additional Instructions Please follow-up with one of the ENT specialist listed below if not better, at your earliest convenience. Take A decongestant daily (Zyrtec, Sophia, Claritin, etc.). Discharge Counseling Counseled pt/family regarding diagnosis, test results, medications/RX, home care, follow up needs Comment Please follow-up with one of the ENT specialist listed below, if not better, at your earliest convenience. ED Critical Care Critical Care No at 0029
--- NOTE | 2017-02-13 16:24 | Emergency Room Report ---
History of Present Illness Time Seen by [id number] Presenting Problem in Triage Pt arrived:Walked Presenting Problem:PT WAS SENT FROM [facility] TO ER WITH EXCRUCIATING RIGHT EAR PAIN. 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 N Clinical Suspician of Infection? N Mental Status: 1 - Regular (Normal Baseline) Sepsis Risk:Low Sepsis Risk Have you (or family members/close friends) recently traveled outside the [place]? N If Yes, where/when: Have you had exposure to infectious disease within the past month? N TB? Other? Specify: Source patient, RN notes reviewed, family, RN/MD Exam Limitations no limitations Comment This is a 46-year-old female patient transferred from the [facility] with worse headache ever in the RIGHT temporal occipital area, for the past one hour prior to arrival. Patient has a history of previous stroke, currently on Effient. Patient describes a fullness in the RIGHT ear, also associated with mild tinnitus, and decreased hearing. She has a history of Mnire's disease ALLERGIES Coded Allergies: latex (Intermediate, I-RASH 02/05/16) morphine (Intermediate, 06/26/16) ciprofloxacin (From CIPRO) (Mild, 06/26/16) fentanyl (03/18/15) lisinopril (03/18/15) ofloxacin (From FLOXIN) (03/18/15) Home Medications Reported Medications Hydroxyzine Pamoate (Vistaril) 25 MG PO BIDP PRN ANXIETY Pantoprazole Sodium (Protonix 40MG TAB) 40 MG PO DAILY Gabapentin (Gabapentin 100MG) 100 MG PO DAILY #30 CAP Verapamil Hcl (Isoptin SR) 120 MG PO BID Atorvastatin Calcium (Lipitor 40MG) 40 MG PO DAILY TRIAMTERENE/HYDROCHLOROTHIAZID (Dyazide 37.5-25 Capsule) 1 CAP PO DAILY HYDROCHLOROTHIAZIDE (Hydrochlorothiazide) 25 MG PO DAILY Apixaban (Eliquis) 5 MG PO BID POTASSIUM CHL (Potassium Chloride) 20 MEQ PO BID Quetiapine Fumarate (Quetiapine 200MG) 200 MG PO QHS #30 Vortioxetine Hydrobromide (Brintellix) 20 MG PO DAILY #30 History Medical History General CAD? No Angina: No NC: No Hypertension? Yes Hyperlipidemia? Yes CHF? No DVT? Yes PE? Yes COPD? Yes Asthma? No Anemia? No GERD? No Gastric ulcers? Yes GI Bleed? Yes Hernia? No Thyroid Problems? Yes Hypothyroidism? No CVA? Yes Seizures? No Diabetes? No Insulin Dependent: No Insulin Pump: No Home FSBS? No Renal Insuffiency? No End Stage Renal Disease? No UTI? No Stones? Yes BPH? No GB Disease: Yes Nephritic Syndrome? No Asplenia? No Hepatitis? No Sickle Cell Disease? No Arthritis? No Migraines? Yes Cataracts? No Glaucoma? No MRSA? No HIV? No TB? No Anxiety? Yes Depression? Yes Cancer? No More? 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 Psychiatric/Neurological headache (worst headache ever) Physical Exam Vital Signs Vital Signs Date Time Temp Pulse Resp B/P Pulse O2 O2 Flow FiO2 Ox Delivery Rate 02/13 1729 73 18 142/79 95 02/13 1728 16 02/13 1702 98.3 76 16 156/93 95 02/13 1534 98.1 74 20 98 02/13 1436 98.2 77 20 140/87 99 General Appearance normal appearance, WD/WN, moderate distress Ear, Nose, Throat hearing grossly normal, normal ENT inspection, normal pharynx, normal nasal mucosa, normal tympanic membranes Neck normal inspection, non-tender, supple, full range of motion, no meningismus Respiratory Status Yes: trachea midline, chest symmetrical, non tender chest. No: respiratory distress. Lung Sounds bilateral: normal breath sounds, lungs clear. 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 No Comment 1615-patient reevaluated, appears in no acute distress, medically stable. Advised patient of results obtained, need to follow-up with her ENT regarding her Mnire's disease. Results/Orders Current Medication Orders Sig/Caio Start time Last Medication Dose Route Stop Time Status Admin Ondansetron HCl 0 .STK-MED ONE 02/13 1723 DC .ROUTE Hydromorphone HCl 0 .STK-MED ONE 02/13 1722 DCr .ROUTE Hydromorphone HCl 0.5 MG ONCE ONE 02/13 1630 DCr 02/13 IV 02/13 1631 1728 Ondansetron HCl 4 MG ONCE ONE 02/13 1630 DC 02/13 IV 02/13 1631 1729 Orders Procedure Date/time Status DIET-NOTHING BY MOUTH 02/[address] HEAD REQ 02/13 1532 Complete XRAY/CT/US XRAY/CT/US CT head CT interpretation by discussed w/radiologist CT Results normal/NAD, no fracture seen, no ICH Departure Departure Time of Disposition 1623 Disposition DC Home or Self Care(routine) Clinical Impression Primary Impression: Headache Qualifiers: Headache type: tension-type Headache chronicity pattern: unspecified pattern Intractability: not intractable Qualified Code: G44.209 - Tension-type headache, unspecified, not intractable Secondary Impressions: Acute ear pain Qualifiers: Laterality: right Qualified Code: H92.01 - Otalgia, right ear Meniere disease Neck pain, acute Condition STABLE Referrals Georgie MISHRA, Rach Bradley MD,Hermes Verma Patient Instructions DI for Headache, DI for Meniere's Disease Additional Instructions Please follow-up with one of the ENT specialist listed below if not better, at your earliest convenience. Take A decongestant daily (Zyrtec, Sophia, Claritin, etc.). Discharge Counseling Counseled pt/family regarding diagnosis, test results, medications/RX, home care, follow up needs Comment Please follow-up with one of the ENT specialist listed below, if not better, at your earliest convenience. ED Critical Care Critical Care No at [id number]
[2017-02-13 17:29] VITALS: BP 142/79
== END 2017-02-13 17:31 | disposition home or self-care (01) ==
LOC: UTC 13:57 → ER 13:59
DX: G44.209 Tension-type headache, unspecified, not intractable (principal); H92.01 Otalgia, right ear; M54.2 Cervicalgia; H81.01 Meniere's disease, right ear; Z91.040 Latex allergy status; Z88.6 Allergy status to analgesic agent; I10 Essential (primary) hypertension; E78.5 Hyperlipidemia, unspecified; F41.8 Other specified anxiety disorders
CPT/HCPCS: J2405

== ENCOUNTER 2017-03-10 16:05 | Emergency (ER) | payer MEDICAID ==
[~2017-03-10] VITALS: Ht 165.1 cm; Wt 86.6 kg
--- OUTSIDE RECORDS SUMMARY | 2017-03-10 16:24 | External Medical Summary Rpt | CCD ---
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 _YES_ 2.1930. VWC. . .M RD BCK KFeli complet VRFY: 012 ed 21:32 153/xin 0 [...] - complet 012 80.0 ed 21:59 EO% 1108-2 0.60 % 0.00 - complet 012 7.00 [...] 60 complet 012 ml/min ed 21:59 CALCIUM 2 8.6 8.50 - complet 012 mg/dl 10.10 ed 21:59 TOTAL 2 0.8 0.20 - complet SHANIQUA 012 mg/dl 1.0 ed 21:59 AST 59 IU/L 15 - 37 Above complet (SGOT) 012 high ed 21:59 normal ALT 11-08-2 76 IU/L 30 - 65 Above complet (SGPT) 012 high ed 21:59 normal
--- OUTSIDE RECORDS SUMMARY | 2017-03-10 16:24 | External Medical Summary Rpt | CCD ---
Demographics Preferred Language German Marital Status Unknown Scientologist Affiliation Unknown Race Unknown Ethnic Group Unknown Author Author LAMONT Address Unknown Phone [email or web address] Purpose Continuity of Care Document - through 2016
--- OUTSIDE RECORDS SUMMARY | 2017-03-10 16:24 | External Medical Summary Rpt | CCD ---
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 _YES_ 2.5602. VWC. . .M RD BCK KFeli complet [...]
--- OUTSIDE RECORDS SUMMARY | 2017-03-10 16:24 | External Medical Summary Rpt | CCD ---
Demographics Preferred Language German Marital Status Unknown Catholic Affiliation Unknown Race Unknown Ethnic Group Unknown Author Author LAMONT Address Unknown Phone [email or web address] Purpose Continuity of Care Document - through 2016
--- OUTSIDE RECORDS SUMMARY | 2017-03-10 16:25 | External Medical Summary Rpt | CCD ---
Demographics Preferred Language Greenlandic Marital Status Unknown Congregation Affiliation Unknown Race Unknown Ethnic Group Unknown Author Author , LAMONT KAUR Address Unknown Phone Immunization No patient found.
--- OUTSIDE RECORDS SUMMARY | 2017-03-10 16:25 | External Medical Summary Rpt | CCD ---
Demographics Preferred Language Mozambican Marital Status Unknown Hoahaoism Affiliation Unknown Race Unknown Ethnic Group Unknown Author Author , LAMONT KAUR Address Unknown Phone Immunization No patient found.
[2017-03-10 17:57] LABS: UTC STREP SCREEN NOT DETECTED (NOTDETECTED)
--- NOTE | 2017-03-10 18:01 | Urgent Treatment Center Report ---
History of Present Issue Date/Time Seen by Provider 03/10/17 1801 Visit Reason Pt arrived:Walked Presenting Problem:PT C/O NAUSEA, SORE THROAT, AND BODYACHES Location if Accident: Onset of symptoms date/time:/ or onset unknown for:MEDICAL HX UNKNOWN Have you (or family members/close friends) recently traveled outside the [place]? N If Yes, where/when: Have you had exposure to infectious disease within the past month? TB? Other? Specify: c/o not feeling well. "I think I have the flu". Bodyaches, chills, sore throat, nausea, stomach cramping since yesterday. Granddaughter and daughter currently w / stomach virus and live in her home. Promethazine helps. 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 Source patient Exam Limitations no limitations ALLERGIES Coded Allergies: latex (Intermediate, I-RASH 02/05/16) morphine (Intermediate, 06/26/16) ciprofloxacin (From CIPRO) (Mild, 06/26/16) fentanyl (03/18/15) lisinopril (03/18/15) ofloxacin (From FLOXIN) (03/18/15) Home Medications Reported Medications Hydroxyzine Pamoate (Vistaril) 25 MG PO BIDP PRN ANXIETY Pantoprazole Sodium (Protonix 40MG TAB) 40 MG PO DAILY Gabapentin (Gabapentin 100MG) 100 MG PO DAILY #30 CAP Verapamil Hcl (Isoptin SR) 120 MG PO BID Atorvastatin Calcium (Lipitor 40MG) 40 MG PO DAILY TRIAMTERENE/HYDROCHLOROTHIAZID (Dyazide 37.5-25 Capsule) 1 CAP PO DAILY HYDROCHLOROTHIAZIDE (Hydrochlorothiazide) 25 MG PO DAILY Apixaban (Eliquis) 5 MG PO BID POTASSIUM CHL (Potassium Chloride) 20 MEQ PO BID Quetiapine Fumarate (Quetiapine 200MG) 200 MG PO QHS #30 Vortioxetine Hydrobromide (Brintellix) 20 MG PO DAILY #30 History Medical History General CAD? No Angina: No SD: No Hypertension? Yes Hyperlipidemia? Yes CHF? No DVT? Yes PE? Yes COPD? Yes Asthma? No Anemia? No GERD? No Gastric ulcers? Yes GI Bleed? Yes Hernia? No Thyroid Problems? Yes Hypothyroidism? No CVA? Yes Seizures? No Diabetes? No Insulin Dependent: No Insulin Pump: No Home FSBS? No Renal Insuffiency? No UTI? No Stones? Yes BPH? No GB Disease: Yes Nephritic Syndrome? No Asplenia? No Hepatitis? No Sickle Cell Disease? No Arthritis? No Migraines? Yes Cataracts? No Glaucoma? No MRSA? No HIV? No TB? No Anxiety? Yes Depression? Yes Cancer? No More? 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 denies: ear pain, throat swelling. Respiratory cough (mild, nonprod), denies shortness of breath Cardiovascular denies chest pain Gastrointestinal see HPI, denies diarrhea, denies vomiting Genitourinary denies: dysuria, frequency, hesitancy, other (change urine color or smell). Musculoskeletal see HPI Skin denies rash Psychiatric/Neurological headache (mild, intermittent) Physical Exam Vital Signs Vital Signs Date Time Temp Pulse Resp B/P Pulse O2 O2 Flow FiO2 Ox Delivery Rate 03/10 1920 98.0 90 18 114/66 97 03/10 1920 98.0 90 18 114/66 97 03/10 1732 98.0 90 18 114/ 97 General Appearance normal appearance, no apparent distress Ear, Nose, Throat normal ENT inspection, moist mucous membranes Neck non-tender, supple Respiratory Status No: respiratory distress, productive cough, non productive cough. Lung Sounds anterior: lungs clear. posterior: lungs clear. bilateral: lungs clear. Cardiovascular regular rate/rhythm, no peripheral edema, no murmur Gastrointestinal non tender, soft, no organomegaly, no pulsatile mass, abnormal bowel sounds (hyperactive), no guarding, no rebound, no suprapubic tenderness Back no CVA tenderness Neurologic alert, oriented x 3 Skin normal color, warm/dry Lymphatic no adenopathy Medical Decision Making LABS/Meds/Orders Pt receiving controlled substance in ED? No Results/Orders Laboratory Tests 03/10/17 1731: Influenza Type A Ag NOT DETECTED, Influenza Type B Ag NOT DETECTED, Group A Strep Screen NOT DETECTED Orders Procedure Date/time Status [facility] STREP SCREEN 03/10 1731 Complete UTC FLU A,B 03/10 1731 Complete Departure Departure Time of Disposition 1859 Disposition DC Home or Self Care(routine) Clinical Impression Primary Impression: Viral gastroenteritis Condition STABLE Referrals OG BAIN (Family) IMMEDIATELY for new or worsening symptoms OR no noticeable improvement over the next 48 hours. Patient Instructions DI for Viral Gastroenteritis -- Adult Additional Instructions * Monitor Temp. Seek treatment if fever develops. * Follow up immediately for new or worsening symptoms OR no noticeable improvement over the next 48 hours. * Increase fluids. Water, gatorade, powerade, juice OR pedialyte with limited formula/dairy in children. * No food is ok as long as you or your child is drinking. Once ready to eat, start bland. bananas, rice, applesauce, toast * Contagious until no diarrhea, vomiting, fever x 24 hours without medication * Avoid anti-diarrheals unless told otherwise. Best to let the virus run its course. * warm salt water gargles * warm fluids * sore throat lozenges Discharge Counseling Counseled pt/family regarding diagnosis, test results, medications/RX, home care, follow up needs Prescriptions Current Visit Scripts PROMETHAZINE HCL (Promethazine 25mg Tab) 25 MG PO Q6HP PRN n/v #12 TAB will cause drowsiness at 1925
[2017-03-10] MEDS ORDERED: PROMETHAZINE HC25 M1 PO (19:00)
[2017-03-10 19:20] VITALS: BP 114/66
== END 2017-03-10 19:21 | disposition home or self-care (01) ==
LOC: UTC 16:05
PROVIDERS: Nurse Practitioner Family
DX: A08.4 Viral intestinal infection, unspecified (principal); I10 Essential (primary) hypertension; E78.5 Hyperlipidemia, unspecified; Z86.73 Personal history of transient ischemic attack (TIA), and cerebral infarction without residual deficits; F41.9 Anxiety disorder, unspecified; F32.9 Major depressive disorder, single episode, unspecified; Z79.01 Long term (current) use of anticoagulants; Z79.899 Other long term (current) drug therapy; Z88.5 Allergy status to narcotic agent; Z88.8 Allergy status to other drugs, medicaments and biological substances; Z88.1 Allergy status to other antibiotic agents; Z91.040 Latex allergy status